=== PATIENT | female | born 1950 | race Caucasian/White ===

== ENCOUNTER 2016-05-01 11:49 | Observation (INO) | payer OTHER, MEDICARE ==
[~2016-05-01] VITALS: Ht 157.5 cm; Wt 99.8 kg
[~2016-05-01 11:49] MED LIST: ADIPEX-P37.5 MG PO; ATIVAN1 MG PO; CELEXA40 MG PO; COLACE100 MG PO; CYMBALTA30 MG PO; HYDROCODONE-APA1 TAB PO; LACTINEX C1 TAB.CHEW PO; NORCO 10/325 TA1 TA1 PO; NORCO 5/325 TAB1 TA1 PO; NORVASC5 MG PO; PERCOCET 10/3251 TA1; PERCOCET 10/3251 TA1 PO; PHENERGAN25 M1 PO; PRILOSEC20 MG PO; PRINIVIL20 MG PO; PROAIR HFA8.5 GM INH; RESTORIL15 MG PO; ZANAFLEX4 MG PO; ZOFRAN ODT4 MG/UDTAB PO
[2016-05-01 14:03] LABS: BASOPHILS 0.4 % (0.0-2.0); EOSINOPHILS 1.8 % (0-7); HEMATOCRIT 34.9 % (36.0-48.0); HEMOGLOBIN 10.4 g/dL (12-16); IMMATURE GRANULOCYTES 0.4 % (0-5); LYMPHOCYTES 13.5 % (15-50); MCH 23.8 pg (26.0-34.0); MCHC 29.8 g/dL (31.0-37.0); MCV 79.9 fL (80.0-100.0); MEAN PLATELET VOLUME 9.7 fL (7.4-10.4); MONOCYTES 7.6 % (2-11); NEUTROPHILS 76.3 % (40-80); PLATELET COUNT 192 10x3/uL (130-400); RBC 4.37 10x6/uL (4.00-5.40); RDW 16.8 % (11.5-14.5); WBC 7.3 10x3/uL (4.8-10.8)
[2016-05-01 14:32] LABS: ALBUMIN 3.4 g/dL (3.4-5.0); ANION GAP 14.9 mmol/L (8-16); BILIRUBIN - TOTAL 0.25 mg/dL (0.2-1.3); CALCIUM 8.5 mg/dL (8.5-10.1); CARBON DIOXIDE 24.9 mmol/L (21.0-32.0); CREATININE - SERUM 0.9 mg/dL (0.6-1.3); POTASSIUM - SERUM 3.8 mmol/L (3.5-5.1); PROTEIN - SERUM 6.1 g/dL (6.4-8.2)
[2016-05-01] MEDS ORDERED: FUROSEMIDE20 MG PO (18:11)
--- NOTE | 2016-05-01 18:11 | NUR ---
RECEIVED TO ROOM 2229. AWAKE AND ALERT. ORIENTED X3. C/O PAIN TO LEFT RIBS AT THIS TIME. SPLINT IN PLACE TO RIGHT HAND. ASSISTED WITH BED LUGO PER STAFF. VOIDED 300cc CLEAR YELLOW URINE WITHOUT DIFFICULTY. SUPPER TRAY ORDERED.
[2016-05-01 18:40] VITALS: BP 104/73
[2016-05-01 20:02] LABS: CKMB 2.5 U/L (0.0-3.6); CREATINE KINASE 169 UL (21-215)
[2016-05-01 20:04] LABS: TROPONIN-I < 0.017 ng/mL (0.000-0.060)
[2016-05-01 20:05] LABS: IRON 27 ug/dl (35-150)
[2016-05-01 20:06] LABS: % SATURATION 6 % (15-55); TOTAL IRON BIND CAPACITY 435 ug/dl (260-445); UNSAT IRON BIND CAPACITY 408 ug/dl (150-375)
--- NOTE | 2016-05-01 20:41 | NUR ---
MEDS GIVEN PER MAR ALONG WITH PRN MORPHINE FOR C/O RIB PAIN 12/19, NAHOMI WELL, IV FLUIDS STARTED PER ORDERS, DENIES FURTHER NEEDS, CL IN REACH
--- NOTE | 2016-05-01 22:43 | NUR ---
IV TO R AC CONSTANTLY OCCLUDING, DC'D WITH CATH INTACT, RESITED WITH 20G X 1 ATTEMPT IN L FOREARM, NAHOMI WELL, CL IN REACH
[2016-05-01 23:09] VITALS: BP 106/76; BMI 40.3
--- NOTE | 2016-05-02 00:49 | NUR ---
PRN MORPHINE GIVEN FOR C/O PAIN 12/19, NAHOMI WELL, CL IN REACH
[2016-05-02 01:00] VITALS: BP 122/82
[2016-05-02 02:24] LABS: CKMB 1.9 U/L (0.0-3.6)
[2016-05-02 02:36] LABS: CREATINE KINASE 266 UL (21-215); TROPONIN-I < 0.017 ng/mL (0.000-0.060)
[2016-05-02 05:00] VITALS: BP 140/95
--- NOTE | 2016-05-02 05:20 | NUR ---
MEDS GIVEN PER MAR ALONG WITH PRN MORPHINE FOR C/O PAIN 10/19, NAHOMI WELL, CL IN REACH
[2016-05-02 05:31] LABS: BASOPHILS 0.5 % (0.0-2.0); EOSINOPHILS 4.9 % (0-7); HEMATOCRIT 30.1 % (36.0-48.0); HEMOGLOBIN 8.8 g/dL (12-16); IMMATURE GRANULOCYTES 0.5 % (0-5); LYMPHOCYTES 30.2 % (15-50); MCH 23.5 pg (26.0-34.0); MCHC 29.2 g/dL (31.0-37.0); MCV 80.3 fL (80.0-100.0); MEAN PLATELET VOLUME 9.5 fL (7.4-10.4); MONOCYTES 13.4 % (2-11); NEUTROPHILS 50.5 % (40-80); PLATELET COUNT 162 10x3/uL (130-400); RBC 3.75 10x6/uL (4.00-5.40); RDW 16.9 % (11.5-14.5)
[2016-05-02 05:59] LABS: WBC 3.9 10x3/uL (4.8-10.8)
[2016-05-02 06:06] LABS: ALBUMIN 2.7 g/dL (3.4-5.0); ANION GAP 11.3 mmol/L (8-16); BILIRUBIN - TOTAL 0.43 mg/dL (0.2-1.3); CALCIUM 7.8 mg/dL (8.5-10.1); CARBON DIOXIDE 28.4 mmol/L (21.0-32.0); CREATININE - SERUM 0.9 mg/dL (0.6-1.3); POTASSIUM - SERUM 3.7 mmol/L (3.5-5.1); PROTEIN - SERUM 5.6 g/dL (6.4-8.2)
--- NOTE | 2016-05-02 07:00 | NUR ---
REPORT RECIEVED ASSUMED CARE. PATIENT IN BED WITH IV INTACT. CALL LIGHT WITHIN REACH.
[2016-05-02 08:11] LABS: CKMB 1.2 U/L (0.0-3.6); CREATINE KINASE 244 UL (21-215); TROPONIN-I < 0.017 ng/mL (0.000-0.060)
[2016-05-02 08:33] VITALS: BP 100/52
[2016-05-02] MEDS ORDERED: CHERATUSSIN AC473 ML PO (09:16)
[2016-05-02] MEDS ORDERED: BENZONATATE200 MG PO (09:18)
[2016-05-02] MEDS ORDERED: SILVADENE20 GM TP (09:19)
[2016-05-02] MEDS ORDERED: LIDODERM 5 %1 PATCH TRANSDERM (09:20)
[2016-05-02] MEDS ORDERED: HYDROXYZINE HCL10 MG PO (09:21)
[2016-05-02] MEDS ORDERED: OMEPRAZOLE20 M1 PO (09:24)
[2016-05-02] MEDS ORDERED: EPIPEN JR0.15 MG/01 IM (09:24)
[2016-05-02] MEDS ORDERED: CARAFATE1 G PO (09:26)
[2016-05-02] MEDS ORDERED: ADIPEX-P37.5 M1 PO (09:27)
[2016-05-02 12:08] VITALS: BP 112/64
[2016-05-02 14:44] VITALS: Ht 157.5 cm; Wt 99.8 kg
[2016-05-02 15:17] VITALS: BP 109/63
--- NOTE | 2016-05-02 18:50 | NUR ---
PATIENT IN BED WITH IV INTACT. NO COMPLAINTS. CALL LIGHT WITHIN REACH.
--- NOTE | 2016-05-02 19:50 | NUR ---
ASSESSMENT COMPLETED, NO ACUTE DISTRESS NOTED, FAMILY IN ROOM, DENIES NEEDS, FALL PRECAUTIONS IN PLACE, CL IN REACH, WILL MONITOR
--- NOTE | 2016-05-02 20:08 | NUR ---
PRN MORPHINE GIVEN PER MAR FOR C/O RIB PAIN 10/19, NAHOMI WELL, CL IN REACH
--- NOTE | 2016-05-02 20:10 | NUR ---
ZOFRAN GIVEN FOR C/O NAUSEA WITH NO EMESIS, NAHOMI WELL, CL IN REACH
[2016-05-02 21:00] VITALS: BP 128/78
--- NOTE | 2016-05-02 21:31 | NUR ---
MEDS GIVEN PER MAR, NAHOMI WELL, DENIES NEEDS AT THIS TIME, FALL PRECAUTIOINS IN PLACE, CL IN REACH
[2016-05-03 01:00] VITALS: BP 130/74
--- NOTE | 2016-05-03 02:19 | NUR ---
MORPHINE GIVEN PER MAR FOR C/O PAIN 11/19, NAHOMI WELL, DENIES OTHER NEEDS, CL IN REACH
[2016-05-03 05:00] VITALS: BP 133/68
--- NOTE | 2016-05-03 06:19 | NUR ---
PRN MORPHINE GIVEN FOR C/O PAIN 10/19 ALONG WITH SCHEDULED PROTONIX, NAHOMI WELL, FALL PRECAUTIONS IN PLACE, CL IN REACH
[2016-05-03 06:24] LABS: ALBUMIN 2.7 g/dL (3.4-5.0); ALKALINE PHOSPHATASE 121 U/L (46-116); ALT (SGPT) 44 U/L (10-68); BILIRUBIN - TOTAL 0.39 mg/dL (0.2-1.3); CALC OSMOLALITY 284 mosm/kg (275-300); CALCIUM 7.8 mg/dL (8.5-10.1); CARBON DIOXIDE 24.7 mmol/L (21.0-32.0); CHLORIDE - SERUM 109 mmol/L (98-107); CREATININE - SERUM 0.7 mg/dL (0.6-1.3); GLUCOSE 98 mg/dL (74-106); POTASSIUM - SERUM 4.2 mmol/L (3.5-5.1); PROTEIN - SERUM 5.5 g/dL (6.4-8.2); SODIUM 144 mmol/L (136-145); UREA NITROGEN 8 mg/dL (7-18); eGFR NON AFRICAN AMERICAN 90 mL/min (90-120)
[2016-05-03 06:29] LABS: BASOPHILS 0.7 % (0.0-2.0); HEMATOCRIT 29.5 % (36.0-48.0); HEMOGLOBIN 8.8 g/dL (12-16); IMMATURE GRANULOCYTES 0.9 % (0-5); LYMPHOCYTES 25.3 % (15-50); MCH 23.9 pg (26.0-34.0); MCHC 29.8 g/dL (31.0-37.0); MCV 80.2 fL (80.0-100.0); MEAN PLATELET VOLUME 9.9 fL (7.4-10.4); MONOCYTES 11.6 % (2-11); NEUTROPHILS 56.5 % (40-80); PLATELET COUNT 149 10x3/uL (130-400); RBC 3.68 10x6/uL (4.00-5.40); RDW 16.9 % (11.5-14.5); WBC 4.6 10x3/uL (4.8-10.8)
--- NOTE | 2016-05-03 07:00 | NUR ---
REPORT RECIEVED ASSUMED CARE. PATIENT IN BED WITH IV INTACT. NO COMPLAINTS AT THIS TIME. CALL MELISSAW EKTA MUNOZ.
[2016-05-03 08:31] VITALS: BP 95/60
[2016-05-03 10:20] LABS: FOLATE (FOLIC ACID) - SERUM 5.9 ng/mL (>3.0)
[2016-05-03 11:46] VITALS: BP 101/64
[2016-05-03] MEDS ORDERED: FERROUS SULFAT325 MG PO (11:54)
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
--- NOTE | 2016-05-03 13:27 | NUR ---
05/03/2016 13:27 DCP: Discharge Planning HH referral faxed and called to Estefany with [facility]. They will see patient tomorrow.
[2016-05-03 16:17] VITALS: BP 121/75
--- NOTE | 2016-05-03 18:55 | NUR ---
STATED DR. PEDRO SAID SHE COULD STAY BECAUSE SHE DIDNT HAVE ANYONE TO STAY WITH HER TONIGHT. NOTIFIED BRINA AT THIS TIME. BRINA STATED OK FOR PATIENT TO STAY. PATIENT IV INTACT. NO COMPLAINTS AT THIS TIME. CALL LIGHT WITHIN REACH.
--- NOTE | 2016-05-03 19:15 | NUR ---
BEDSIDE REPORT RECEIVED AND CARE OF PT ASSUMED. PT LYING IN SEMI MAYBERRY'S POSITION. IV IN LEFT FA PATENT WITH NS INFUSING AT 75 ML / HR. DRESSING ON RIGHT ARM / HAND CLEAN / DRY AND INTACT. WILL MONITOR CLOSLEY FOR NEEDS.
[2016-05-03 21:00] VITALS: BP 123/80
--- NOTE | 2016-05-03 22:05 | NUR ---
HS MEDICATIONS GIVEN. WILL CONTINUE TO MONITOR FOR NEEDS.
--- NOTE | 2016-05-03 22:15 | NUR ---
GAVE TURKEY SANDWICH FOR SNACK PER PT REQUEST. WILL CONTINUE TO MONITOR FOR NEEDS.
--- NOTE | 2016-05-04 01:00 | NUR ---
ASSISTED TO BSC TO VOID. POSITIONED BACK IN BED FOR COMFORT.
[2016-05-04 02:30] VITALS: BP 130/70
[2016-05-04 05:00] VITALS: BP 108/77
[2016-05-04 05:54] LABS: BASOPHILS 0.6 % (0.0-2.0); EOSINOPHILS 5.7 % (0-7); HEMATOCRIT 27.4 % (36.0-48.0); HEMOGLOBIN 8.1 g/dL (12-16); IMMATURE GRANULOCYTES 0.3 % (0-5); LYMPHOCYTES 29.5 % (15-50); MCH 23.5 pg (26.0-34.0); MCHC 29.6 g/dL (31.0-37.0); MCV 79.4 fL (80.0-100.0); MEAN PLATELET VOLUME 10.4 fL (7.4-10.4); MONOCYTES 11.9 % (2-11); PLATELET COUNT 138 10x3/uL (130-400); RBC 3.45 10x6/uL (4.00-5.40); RDW 16.8 % (11.5-14.5); WBC 3.5 10x3/uL (4.8-10.8)
[2016-05-04 06:15] LABS: ALBUMIN 2.5 g/dL (3.4-5.0); ALKALINE PHOSPHATASE 182 U/L (46-116); CALC OSMOLALITY 278 mosm/kg (275-300); CALCIUM 7.8 mg/dL (8.5-10.1); CARBON DIOXIDE 26.1 mmol/L (21.0-32.0); CHLORIDE - SERUM 108 mmol/L (98-107); CREATININE - SERUM 0.7 mg/dL (0.6-1.3); GLUCOSE 93 mg/dL (74-106); POTASSIUM - SERUM 4.1 mmol/L (3.5-5.1); PROTEIN - SERUM 5.1 g/dL (6.4-8.2); SODIUM 141 mmol/L (136-145); UREA NITROGEN 6 mg/dL (7-18); eGFR NON AFRICAN AMERICAN 90 mL/min (90-120)
[2016-05-04 06:19] LABS: ALT (SGPT) 58 U/L (10-68)
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
[2016-05-04 08:34] VITALS: BP 116/67
--- NOTE | 2016-05-04 10:15 | NUR ---
PATIENT DISCHARGED HOME WITH FAMILY VIA PRIVATE VEHICLE TO BE FOLLOWED BY HOME HEALTH. IV DC'D WITH CATHETER INTACT. PERSONAL BELONGINGS RETURNED TO PATIENT. WRITTEN AND VERBAL INSTRUCTIONS GIVEN TO PATIENT. TAKEN TO PRIVATE VEHCILE VIA WHEELCHAIR.
== END 2016-05-04 10:23 | disposition home health service (06) ==
LOC: D.ER 11:49 → D.MS 17:33 → OBSVTIME 17:33 → D.MS 05-04 10:23
PROVIDERS: Physician Assistant; ADMIT Family Medicine
DX: S22.42XA Multiple fractures of ribs, left side, initial encounter for closed fracture (principal); V89.2XXA Person injured in unspecified motor-vehicle accident, traffic, initial encounter; S30.1XXA Contusion of abdominal wall, initial encounter; D64.9 Anemia, unspecified; S62.306A Unspecified fracture of fifth metacarpal bone, right hand, initial encounter for closed fracture; M19.90 Unspecified osteoarthritis, unspecified site; M54.9 Dorsalgia, unspecified; I10 Essential (primary) hypertension; F41.9 Anxiety disorder, unspecified

== ENCOUNTER → 2016-12-05 16:58 | Outpatient (CLI) | payer MEDICARE ==
[2016-05-02 14:44] VITALS: BMI 40.2
[~2016-12-05 16:58] MED LIST changes: +ADIPEX-P37.5 M1 PO; +BENZONATATE200 MG PO; +CARAFATE1 G PO; +CHERATUSSIN AC473 ML PO; +EPIPEN JR0.15 MG/01 IM; +FERROUS SULFAT325 MG PO; +FUROSEMIDE20 MG PO; +HYDROXYZINE HCL10 MG PO; +LIDODERM 5 %1 PATCH TRANSDERM; +OMEPRAZOLE20 M1 PO; +SILVADENE20 GM TP
== END | disposition home or self-care (01) ==
LOC: D.MAMMO 13:30
DX: Z12.31 Encounter for screening mammogram for malignant neoplasm of breast (principal)

== ENCOUNTER 2017-01-19 10:00 | Outpatient (CLI) | payer MEDICARE ==
[2016-05-02 14:44] VITALS: BMI 40.2
== END 2017-01-19 23:59 | disposition home or self-care (01) ==
LOC: D.MAMMO 10:00
DX: R92.2 Inconclusive mammogram (principal)

== ENCOUNTER → 2017-10-30 14:58 | Outpatient (CLI) | payer MEDICARE ==
[2016-05-02 14:44] VITALS: BMI 40.2
== END | disposition home or self-care (01) ==
LOC: D.CT 14:58
DX: R10.9 Unspecified abdominal pain (principal)

== ENCOUNTER → 2018-04-26 15:44 | Outpatient (CLI) | payer MEDICARE ==
[2016-05-02 14:44] VITALS: BMI 40.2
== END | disposition home or self-care (01) ==
LOC: D.CT 15:44
DX: R19.00 Intra-abdominal and pelvic swelling, mass and lump, unspecified site (principal)

== ENCOUNTER → 2018-05-10 18:23 | Outpatient (CLI) | payer MEDICARE ==
[2016-05-02 14:44] VITALS: BMI 40.2
== END | disposition home or self-care (01) ==
LOC: D.LABREF 18:23
PROVIDERS: ATTEND Surgery
DX: R19.03 Right lower quadrant abdominal swelling, mass and lump (principal)

== ENCOUNTER 2018-06-27 09:48 | Day surgery (SDC) | payer MEDICARE ==
[2016-05-02 14:44] VITALS: BMI 40.2
[~2018-06-27 09:48] MED LIST changes: +ULTRAM50 MG PO
[2018-06-27 10:06] LABS: HEMATOCRIT 35.6 % (36.0-48.0); HEMOGLOBIN 11.4 g/dL (12-16); MCV 78.1 fL (80.0-100.0); MEAN PLATELET VOLUME 8.8 fL (7.4-10.4); RBC 4.56 10x6/uL (4.00-5.40); RDW 15.5 % (11.5-14.5); WBC 4.9 10x3/uL (4.8-10.8)
--- NOTE | 2018-06-27 12:20 | NUR ---
PATIENT STATES FEELING BETTER AFTER ZOFRAN INJECTION, WANTS TO GO FORWARD WITH SURGERY. PATIENT STATES "I FEEL LIKE THIS NAUSEA IS JUST FROM SINUSES." THIS NURSE BEGINS ASSESSING PATIENT AND TAKING A MEDICAL HISTORY AND PATIENT VOMITS IN EMESIS BASIN FOR SECOND TIME SINCE ARRIVING IN OUTPATIENT DEPARTMENT. ORANGE/YELLOW FLUID IN EMESIS BASIN. PATIENT STATES "THAT'S ORANGE JUICE." THIS NURSE ASKS WHEN PATIENT HAD ORANGE JUICE LAST, PATIENT STATES "YESTERDAY." SPOUSE STATES "NO, THAT'S BILE." CALL PLACED TO DR BRISENO REGARDING PATIENT'S VOMITING, DR BRISENO ORDERS SURGERY TO BE RESCHEDULED FOR A DIFFERENT DAY.
== END 2018-06-27 12:20 | disposition home or self-care (01) ==
LOC: D.OPS 09:48 → D.PAN 12:30 → D.OPS 13:00
PROVIDERS: Anesthesiology; ATTEND Orthopaedic Surgery
DX: M75.42 Impingement syndrome of left shoulder (principal)

== ENCOUNTER 2018-06-27 23:02 | Emergency (ER) | payer MEDICARE ==
[~2018-06-27] VITALS: Ht 157.5 cm; Wt 95.9 kg
[2018-06-27 23:04] VITALS: Ht 157.5 cm; Wt 95.9 kg
[2018-06-27 23:45] LABS: HEMATOCRIT 35.5 % (36.0-48.0); HEMOGLOBIN 11.8 g/dL (12-16); LYMPHOCYTES 22.1 % (15-50); MCH 25.9 pg (26.0-34.0); MCHC 33.2 g/dL (31.0-37.0); MCV 77.9 fL (80.0-100.0); MEAN PLATELET VOLUME 8.8 fL (7.4-10.4); NEUTROPHILS 70.4 % (40-80); PLATELET COUNT 182 10x3/uL (130-400); RBC 4.56 10x6/uL (4.00-5.40); RDW 14.7 % (11.5-14.5); WBC 4.2 10x3/uL (4.8-10.8)
[2018-06-28 00:15] LABS: ALBUMIN 3.4 g/dL (3.4-5.0); ALKALINE PHOSPHATASE 76 U/L (46-116); ALT (SGPT) 15 U/L (10-68); BILIRUBIN - TOTAL 0.53 mg/dL (0.2-1.3); CALC OSMOLALITY 281 mosm/kg (275-300); CALCIUM 8.4 mg/dL (8.5-10.1); CARBON DIOXIDE 30.2 mmol/L (21.0-32.0); CHLORIDE - SERUM 106 mmol/L (98-107); CREATININE - SERUM 0.8 mg/dL (0.6-1.3); GLUCOSE 109 mg/dL (74-106); POTASSIUM - SERUM 3.4 mmol/L (3.5-5.1); PROTEIN - SERUM 6.9 g/dL (6.4-8.2); SODIUM 142 mmol/L (136-145); UREA NITROGEN 6 mg/dL (7-18); eGFR NON AFRICAN AMERICAN 76 mL/min (90-120)
[2018-06-28 00:40] LABS: ERYTHROCYTE SEDIMENTATION RATE 12 mm/hr (0-30)
[2018-06-28 02:17] VITALS: BP 142/85
== END 2018-06-28 02:17 | disposition home or self-care (01) ==
LOC: D.ER 23:02
PROVIDERS: Emergency Medicine
DX: G43.909 Migraine, unspecified, not intractable, without status migrainosus (principal); D64.9 Anemia, unspecified; E87.6 Hypokalemia

== ENCOUNTER 2018-07-18 06:45 | Day surgery (SDC) | payer MEDICARE ==
[2018-07-17 10:21] LABS: HEMATOCRIT 38.9 % (36.0-48.0); HEMOGLOBIN 12.7 g/dL (12-16); MCH 25.3 pg (26.0-34.0); MCHC 32.6 g/dL (31.0-37.0); MCV 77.5 fL (80.0-100.0); MEAN PLATELET VOLUME 8.9 fL (7.4-10.4); RBC 5.02 10x6/uL (4.00-5.40); RDW 15.7 % (11.5-14.5); WBC 6.8 10x3/uL (4.8-10.8)
[~2018-07-18] VITALS: Ht 162.6 cm; Wt 104.3 kg
[2018-07-18 08:03] VITALS: BP 121/95; Ht 162.6 cm; Wt 104.3 kg
[2018-07-18] MEDS ORDERED: HYDROCODON-ACE1 EA10 PO (10:40)
--- NOTE | 2018-07-29 07:51 | OP ---
PATIENT NAME: IKER JOYA MEDICAL RECORD: [id number] :52 LOCATION:[facility] ADMISSION DATE: SURGEON: JORDAN BRISENO MD DATE OF OPERATION: 07/18/2018 PREOPERATIVE DIAGNOSIS: Rotator cuff tear of the left shoulder with impingement syndrome. POSTOPERATIVE DIAGNOSIS: Rotator cuff tear of the left shoulder with impingement syndrome. PROCEDURES: 1. Arthroscopic rotator cuff repair of the left shoulder. 2. Arthroscopic distal clavicle excision done through separate incision -- 1 cm, left shoulder. 3. Arthroscopic subacromial decompression, left shoulder. SURGEON: Jordan Briseno MD ANESTHESIA: General. INTRAOPERATIVE COMPLICATIONS: None. SUMMARY OF PATHOLOGIC FINDINGS: The patient was indeed found to have a full thickness rotator cuff tear as well as impingement findings associated with excoriation of the coracoacromial ligament as well as acromioclavicular arthritis. OPERATIVE SUMMARY IN DETAIL: After obtaining the appropriate preoperative orthopedic surgery consent as well as anesthetic consultation, evaluation and clearance, the patient was brought to the operating room and placed on the operating table in supine position. After general laryngeal mask airway was administered, the patient was placed in a right lateral decubitus position. All pressure points well padded to include down leg peroneal pad as well as axillary roll. The patient was held firmly to the operating table using the vacuum pack suction system. The patient's left upper extremity and shoulder were then prepped and draped in routine sterile fashion. The arm was held in the Arthrex traction boom at 30 degrees of forward flexion, 30 degrees of abduction, 10 pounds of traction laterally. Arthroscopy was established in the glenohumeral joint from the posterior portal. Anterior portal was established in the anterior safe interval. Diagnostic arthroscopy showed the patient had full thickness rotator cuff tearing, therefore a transrotator cuff portal was created for debridement of the undersurface of the rotator cuff as well as preparation of the supraspinatus tendon for reapproximation. Having completed this, attention was then turned to subacromial space, Nelson tissue ablation system was utilized to denude the undersurface of the acromion of all soft tissue elements and release the coracoacromial ligament. A 5-0 barrel bur was then used for acromioplasty at the level of acromioclavicular joint and through a separate anterior portal under arthroscopic visualization, 1 cm distal clavicle was excised for the distal clavicle excision. Lastly, attention was then returned to the rotator cuff. Single #2 FiberTape was placed in inverted mattress style fashion and anchored laterally with a 5.5 SwiveLock from Arthrex. Having completed this, arthroscopy portals were closed in routine interrupted fashion using 4-0 Prolene. Sterile dressing was applied. The patient was awakened and taken to recovery room in stable condition. All final needle and OPERATIVE REPORT [id number] IKER JOYA sponge counts were correct. TRANSINT:[id number] Voice Confirmation ID: [id number] DOCUMENT ID: [id number] FINN ALVAREZ, JORDAN KHAN at 0751 CC: [id number] DICTATION DATE: 07/26/18 1208 CHEMICAL LABORATORY TECHNICIAN: 07/26/18 1535 [facility] 07/18/18 [id number] [place] [address]
== END 2018-07-18 12:29 | disposition home or self-care (01) ==
LOC: D.OPS 06:45 → D.PAN 09:00 → D.OPS 12:29 → D.PAN 13:15 → D.OPS 14:15 → D.PAN 14:15
PROVIDERS: Anesthesiology; ATTEND Orthopaedic Surgery
DX: M75.102 Unspecified rotator cuff tear or rupture of left shoulder, not specified as traumatic (principal); M75.42 Impingement syndrome of left shoulder

== ENCOUNTER 2018-09-30 08:29 | Day surgery (SDC) | payer MEDICARE ==
[~2018-09-30] VITALS: Ht 162.6 cm; Wt 104.3 kg
[~2018-09-30 08:29] MED LIST changes: +CYCLOBENZAPRINE10 MG PO; +HYDROCODON-ACE1 EA10 PO
[2018-09-30 09:02] LABS: BASOPHILS 0.4 % (0-2); EOSINOPHILS 1.2 % (0-7); HEMATOCRIT 37.1 % (36.0-48.0); HEMOGLOBIN 11.6 g/dL (12-16); IMMATURE GRANULOCYTES 0.4 % (0-5); LYMPHOCYTES 24.8 % (15-50); MCH 24.1 pg (26.0-34.0); MCHC 31.3 g/dL (31.0-37.0); MEAN PLATELET VOLUME 8.7 fL (7.4-10.4); MONOCYTES 8.4 % (2-11); NEUTROPHILS 64.8 % (40-80); PLATELET COUNT 197 10x3/uL (130-400); RBC 4.82 10x6/uL (4.00-5.40); RDW 15.4 % (11.5-14.5); WBC 9.1 10x3/uL (4.8-10.8)
[2018-09-30 09:06] LABS: ANION GAP 8.9 mmol/L (8-16); CALCIUM 8.8 mg/dL (8.5-10.1); CARBON DIOXIDE 31.6 mmol/L (21.0-32.0); CREATININE - SERUM 0.9 mg/dL (0.6-1.3); POTASSIUM - SERUM 4.5 mmol/L (3.5-5.1)
[2018-09-30 10:38] VITALS: BP 129/92; Ht 162.6 cm; Wt 104.3 kg
--- NOTE | 2018-09-30 16:22 | NUR ---
1350 IV REMOVED AND PRESSURE HELD.
--- NOTE | 2018-10-03 12:35 | OP ---
PATIENT NAME: IKER JOYA MEDICAL RECORD: [id number] :52 LOCATION:[facility] ADMISSION DATE: SURGEON: JORDAN BRISENO MD DATE OF OPERATION: 09/30/2018 PREOPERATIVE DIAGNOSIS: Bilateral osteoarthritis of the hips, mild to moderate. POSTOPERATIVE DIAGNOSIS: Bilateral osteoarthritis of the hips, mild to moderate. PROCEDURE: Bilateral hip injections under anesthesia. SURGEON: Jordan Briseno MD ANESTHESIA: TIVA. INTRAOPERATIVE COMPLICATIONS: None. SUMMARY OF PATHOLOGIC FINDINGS: Consistent with the preoperative radiographs. Fluoroscopy did show the patient to have [id number] OA of bilateral hips. OPERATIVE SUMMARY IN DETAIL: After obtaining the appropriate preoperative orthopedic surgery consent as well as anesthetic consultation, evaluation and clearance, the patient was brought to the operating room and placed on the operating table in supine position. After TIVA anesthesia was administered, bilateral hips were prepped and draped in routine sterile fashion. The left hip was approached first. An 18-gauge spinal needle was then placed into the capsule. Small amount of Isovue was utilized to be sure that this was in the appropriate position and then a combination of a 5 cc of 0.25% Marcaine with epinephrine and 40 mg of Depo-Medrol were placed into the hip socket under fluoroscopic guidance. This needle tip was withdrawn. Bandage was applied. Attention was then turned to the right hip. In the same manner, a separate 18-gauge spinal needle was then placed into the hip capsule. Small amount of Isovue was then utilized to be sure the tip was in the appropriate position. At this point, again 5 cc of 0.25% Marcaine with epinephrine and 40 mg of Depo-Medrol were injected into the right hip. This likewise was withdrawn. Bandage was applied. The patient was then awakened and taken back to outpatient in stable condition. All final needle and sponge counts were correct. TRANSINT:[id number] Voice Confirmation ID: [id number] DOCUMENT ID: [id number] FINN ALVAREZ, JORDAN KHAN at 1235 CC: [id number] DICTATION DATE: 10/03/18 1053 SHELTER ADVOCATE: 10/03/18 1120 [facility]P [facility] 09/30/18 [place] [address]
== END 2018-09-30 13:45 | disposition home or self-care (01) ==
LOC: D.OPS 08:29 → D.PAN 14:45
PROVIDERS: Anesthesiology; ATTEND Orthopaedic Surgery
DX: M16.0 Bilateral primary osteoarthritis of hip (principal)

== ENCOUNTER 2018-10-24 08:47 | Day surgery (SDC) | payer MEDICARE ==
[2018-10-23 15:35] LABS: HEMATOCRIT 36.3 % (36.0-48.0); HEMOGLOBIN 11.4 g/dL (12-16); MCH 24.1 pg (26.0-34.0); MCHC 31.4 g/dL (31.0-37.0); MCV 76.7 fL (80.0-100.0); MEAN PLATELET VOLUME 8.9 fL (7.4-10.4); RBC 4.73 10x6/uL (4.00-5.40); RDW 15.9 % (11.5-14.5); WBC 6.8 10x3/uL (4.8-10.8)
[~2018-10-24] VITALS: Ht 162.6 cm; Wt 104.3 kg
[2018-10-24 07:50] VITALS: BP 127/72; Ht 162.6 cm; Wt 104.3 kg
[2018-10-24] MEDS ORDERED: HYDROCODON-ACE1 EA10 PO (11:28)
--- NOTE | 2018-12-16 09:56 | OP ---
PATIENT NAME: IKER JOYA MEDICAL RECORD: [id number] :52 LOCATION:[facility] ADMISSION DATE: SURGEON: JORDAN BRISENO MD DATE OF OPERATION: 10/24/2018 PREOPERATIVE DIAGNOSIS: Residual biceps tendinitis of the left shoulder status post arthroscopy. POSTOPERATIVE DIAGNOSIS: Residual biceps tendinitis of the left shoulder status post arthroscopy. PROCEDURE: Arthroscopic biceps tenotomy. SURGEON: Jordan Briseno MD ANESTHESIA: General. INTRAOPERATIVE COMPLICATIONS: None. SUMMARY OF PATHOLOGIC FINDINGS: Unfortunately, the patient's biceps tendinitis did not improve after decompression and rotator cuff repair. This resulted in several trials of cortisone therapy; however, they failed and at the time of surgery, she was found to have severe biceps tendinitis consistent with the preoperative diagnosis. OPERATIVE SUMMARY IN DETAIL: After obtaining the appropriate preoperative orthopedic surgery consent as well as anesthetic consultation, evaluation and clearance, the patient was brought to the operating room and placed on the operating table in supine position. After adequate general laryngeal mask airway was administered, the patient was placed in left lateral decubitus position. All pressure points were well padded to include down leg peroneal pad as well as axillary roll. The patient was held firmly to the operating table using the vacuum pack suction system. The left upper extremity was then prepped and draped in a routine sterile fashion, held in the Arthrex traction boom at 30 degrees of forward flexion, 30 degrees of abduction, and 10 pounds of traction laterally. Arthroscopy was established in the glenohumeral joint from the posterior portal. Anterior portal was established in the anterior safe interval. Diagnostic arthroscopy did show the patient to have severe and significant biceps tendinitis. No further rotator cuff tearing was noted. [place] tissue ablation system was utilized to detach the biceps tendon at the bicipital labral junction and immediately retracted out of the joint. The patient did have substantial amount of synovitis in and around the area of the biceps tendon. This was gently debrided using the arthroscopic resector. Next, attention was turned to the subacromial space. While in the subacromial space, the patient did have one piece of FiberWire that was protruding. No rotator cuff tearing was noted. The FiberWire was taken down along with a lot of subacromial synovitis. Having completed this, arthroscopy portals were closed in routine interrupted fashion using 4-0 Prolene. Sterile dressings were applied. The patient was awakened and taken to the recovery room in stable condition. All final needle and sponge counts were correct. TRANSINT:[id number] Voice Confirmation ID: [id number] DOCUMENT ID: [id number] 12/13/2018 Edited for left, srikanth. OPERATIVE REPORT [id number] IKER JOYA MD, JORDAN KHAN at 0956 CC: [id number] DICTATION DATE: 10/25/18 1042 CABLE INSTALLER REPAIRER: 10/25/18 1134 [facility] 10/24/18 [facility] [address] [place] [address]
== END 2018-10-24 13:50 | disposition home or self-care (01) ==
LOC: D.OPS 08:47 → D.PAN 17:15 → D.OPS 17:15
PROVIDERS: Anesthesiology; ATTEND Orthopaedic Surgery
DX: M75.21 Bicipital tendinitis, right shoulder (principal); Z01.812 Encounter for preprocedural laboratory examination

== ENCOUNTER → 2018-12-06 08:02 | Outpatient (CLI) | payer MEDICARE ==
[2018-10-24 07:50] VITALS: BMI 39.5
== END | disposition home or self-care (01) ==
LOC: D.NM 08:02
PROVIDERS: ATTEND Orthopaedic Surgery
DX: Z96.652 Presence of left artificial knee joint (principal)

== ENCOUNTER → 2018-12-24 17:51 | Outpatient (CLI) | payer MEDICARE ==
[2018-10-24 07:50] VITALS: BMI 39.5
[~2018-12-24 17:51] MED LIST changes: +ELIQUIS2.5 MG PO; +PERCOCET 10-321 EAC1 PO; +TRAZODONE HCL150 MG PO
== END | disposition home or self-care (01) ==
LOC: D.LABREF 17:51
PROVIDERS: ATTEND Orthopaedic Surgery
DX: M25.562 Pain in left knee (principal)

== ENCOUNTER 2018-12-27 16:42 | Inpatient (IN) | payer MEDICARE, OTHER ==
[~2018-12-27] VITALS: Ht 162.6 cm; Wt 99.5 kg
[~2018-12-27 16:42] MED LIST changes: -ELIQUIS2.5 MG PO; -PERCOCET 10-321 EAC1 PO; -TRAZODONE HCL150 MG PO
[2019-01-07] MEDS ORDERED: TRAZODONE HCL150 MG PO (16:22)
[2019-01-07] MEDS ORDERED: ZANAFLEX4 MG PO (16:22)
[2019-01-07] MEDS ORDERED: ULTRAM50 MG PO (16:23)
[2019-01-08 11:24] LABS: BASOPHILS 0.8 % (0-2); EOSINOPHILS 3.5 % (0-7); HEMATOCRIT 39.3 % (36.0-48.0); HEMOGLOBIN 11.9 g/dL (12-16); IMMATURE GRANULOCYTES 0.2 % (0-5); LYMPHOCYTES 23.8 % (15-50); MCH 23.2 pg (26.0-34.0); MCHC 30.3 g/dL (31.0-37.0); MCV 76.8 fL (80.0-100.0); MEAN PLATELET VOLUME 9.6 fL (7.4-10.4); MONOCYTES 9.8 % (2-11); NEUTROPHILS 61.9 % (40-80); PLATELET COUNT 191 10x3/uL (130-400); RBC 5.12 10x6/uL (4.00-5.40); RDW 16.1 % (11.5-14.5); WBC 5.1 10x3/uL (4.8-10.8)
[2019-01-08 11:28] LABS: CALC OSMOLALITY 284 mosm/kg (275-300); CALCIUM 9.3 mg/dL (8.5-10.1); CARBON DIOXIDE 28.9 mmol/L (21.0-32.0); CHLORIDE - SERUM 105 mmol/L (98-107); CREATININE - SERUM 0.8 mg/dL (0.6-1.3); GLUCOSE 98 mg/dL (74-106); POTASSIUM - SERUM 3.8 mmol/L (3.5-5.1); SODIUM 144 mmol/L (136-145); UREA NITROGEN 8 mg/dL (7-18); eGFR NON AFRICAN AMERICAN 76 mL/min (90-120)
[2019-01-08 11:46] LABS: INR 1.05 (0.85-1.17); PROTIME 13.2 SECONDS (11.6-15.0)
[2019-01-08 11:47] LABS: APTT 33.5 SECONDS (22.8-39.4)
[2019-01-08 12:31] LABS: APPEARANCE HAZY (CLEAR); BILIRUBIN NEGATIVE (NEGATIVE); COLOR DK YELLOW (YELLOW); GLUCOSE NEGATIVE (NEGATIVE); KETONE MODERATE mg/dL (NEGATIVE); NITRITE NEGATIVE (NEGATIVE); PROTEIN NEGATIVE (NEGATIVE); SPECIFIC GRAVITY 1.025 (1.005-1.020); UROBILINOGEN NORMAL (NORMAL)
[2019-01-08 12:32] LABS: BACTERIA FEW /hpf (NEGATIVE); CALCIUM OXALATE CRYSTALS >50 /hpf (NONE SEEN); EPITHELIAL CELLS 0-5 /hpf (0-5); MUCUS <1+ /lpf (NONE SEEN); RED CELLS - URINE RARE /hpf (0-5); WHITE CELLS - URINE OCC /hpf (NEGATIVE)
[2019-01-13] VITALS (10 sets, daily range): BP systolic 92–122; BP diastolic 54–73; Ht 162.6 cm; Wt 99.5 kg
--- NOTE | 2019-01-13 13:23 | NUR ---
PLASMA BLADE SET TO 6/8 BOVIE PAD RIGHT THIGH [id number] EXP 03/27/20 PREPPED LEFT LEG FROM TOURNIQUET TO TOES CIRCUMFERENTIALLY WITH HIBICLENS/ALCOHOL AND DRIED WITH TOWEL. PREPPED WITH CHLORAPREP. STERILE GOWN AND GLOVES WORN DURING PREP. LAMINAR FLOW NOT IN USE TRAFFIC IN AND OUT OF ROOM MONITORED AND KEPT TO A MINIMUM.
--- NOTE | 2019-01-13 20:00 | NUR ---
ALERT ORIENTIATED SITTING UP IN BED, REPORTS MILD PAIN TO LEFT KNEE AREA WITH SLIGHT MOVEMENT TO TOES OF LEFT FOOT, TONY WRAP INTACT TO LEFT KNEE, REQUESTING PAIN PILL, PEROCET GIVEN, SEE SHIFT ASSESSMENT, CALL LIGHT IN REACH
[2019-01-14] VITALS (9 sets, daily range): BP systolic 82–154; BP diastolic 50–80
--- NOTE | 2019-01-14 02:05 | NUR ---
CALL TO DR JACOBS CONCERNING LOW BP, RECHECKED MANUAL AT 82/50 ORDERS RECIEVED FOR STAT H&H AND TO CALL IF LESS THAN 9 AND TO CONSULT HOSPITALIST BARGE PILOT
--- NOTE | 2019-01-14 02:25 | NUR ---
Carina GRIFFIN APN, DRIVER MATERIAL HANDLER FOR DR PRASAD PAGED AWAITING CALL BACK
[2019-01-14 02:59] LABS: HEMATOCRIT 29.7 % (36.0-48.0); HEMOGLOBIN 9.1 g/dL (12-16)
--- NOTE | 2019-01-14 03:00 | NUR ---
SPOKE WITH Carina GRIFFIN APN, INFORMED OF CONSULT AND DOWNWARD TRENDING BP AND PT REPORTS HAS HX OF LOW BLOOD PRESSURE AND HAS HAD TO GO TO ICU BEFORE WHEN IT WAS TO LOW,ORDERS RECIEVED FOR 5OOCC NS FLUID BOLUS NOW, GIVEN
--- NOTE | 2019-01-14 03:45 | NUR ---
BP NOW 99/54 AFTER 500CC NS BOLUS
[2019-01-14 06:57] LABS: HEMATOCRIT 29.3 % (36.0-48.0); HEMOGLOBIN 8.7 g/dL (12-16); MCH 23.1 pg (26.0-34.0); MCHC 29.7 g/dL (31.0-37.0); MCV 77.9 fL (80.0-100.0); MEAN PLATELET VOLUME 10.7 fL (7.4-10.4); RBC 3.76 10x6/uL (4.00-5.40); RDW 16.5 % (11.5-14.5); WBC 4.9 10x3/uL (4.8-10.8)
--- NOTE | 2019-01-14 07:30 | NUR ---
PT RESTING IN BED NO ACUTE DISTRESS. PT DENIES PAIN AT THIS TIME. IV TO LEFT FOREARM WITH 1/2 NS @ 100ML/HR INFUSING VIA PUMP. SITE WITHOUT REDNESS OR EDEMA. DRESSING TO LEFT LOWER EXTREMITY, C/D/I. ABLE TO MOVE TOES. WARM TO TOUCH, PULSES PALPABLE. DENIES FURTHER NEEDS AT THIS TIME. CL WITHIN REACH. ENCOURAGED TO CALL WITH NEEDS. CONTINUE POC
[2019-01-14 08:30] LABS: % SATURATION 13 % (15-55); IRON 37 ug/dl (35-150); TOTAL IRON BIND CAPACITY 277 ug/dl (260-445); UNSAT IRON BIND CAPACITY 240 ug/dl (150-375)
[2019-01-14 08:58] LABS: CALC OSMOLALITY 278 mosm/kg (275-300); CALCIUM 7.8 mg/dL (8.5-10.1); CARBON DIOXIDE 25.8 mmol/L (21.0-32.0); CHLORIDE - SERUM 107 mmol/L (98-107); CREATININE - SERUM 0.8 mg/dL (0.6-1.3); FERRITIN 53 ng/mL (3-244); GLUCOSE 95 mg/dL (74-106); LDH 218 U/L (81-234); POTASSIUM - SERUM 4.2 mmol/L (3.5-5.1); SODIUM 141 mmol/L (136-145); UREA NITROGEN 6 mg/dL (7-18); eGFR NON AFRICAN AMERICAN 76 mL/min (90-120)
[2019-01-14 10:44] LABS: APPEARANCE CLEAR (CLEAR); COLOR YELLOW (YELLOW); NITRITE NEGATIVE (NEGATIVE); PROTEIN NEGATIVE (NEGATIVE); SPECIFIC GRAVITY 1.015 (1.005-1.020)
[2019-01-14 10:45] LABS: BILIRUBIN NEGATIVE (NEGATIVE); GLUCOSE NEGATIVE (NEGATIVE); KETONE SMALL mg/dL (NEGATIVE); UROBILINOGEN NORMAL (NORMAL)
[2019-01-14 17:11] LABS: BASOPHILS 0.2 % (0-2); EOSINOPHILS 0 % (0-7); HEMATOCRIT 30.9 % (36.0-48.0); HEMOGLOBIN 9.2 g/dL (12-16); IMMATURE GRANULOCYTES 0.2 % (0-5); LYMPHOCYTES 9.3 % (15-50); MCH 23.3 pg (26.0-34.0); MCHC 29.8 g/dL (31.0-37.0); MCV 78.2 fL (80.0-100.0); MONOCYTES 12.5 % (2-11); NEUTROPHILS 77.8 % (40-80); PLATELET COUNT 144 10x3/uL (130-400); RBC 3.95 10x6/uL (4.00-5.40); RDW 16.2 % (11.5-14.5); WBC 5.9 10x3/uL (4.8-10.8)
--- NOTE | 2019-01-14 20:00 | NUR ---
ALERT RESTING IN BED WITH CPM IN USE, DENIES PAIN OR NEEDS AT THIS TIME, SEE SHIFT ASSESSMENT, CALL LIGHT IN REACH
[2019-01-15] VITALS: BP 164/74
[2019-01-15 04:00] VITALS: BP 151/78
--- NOTE | 2019-01-15 07:05 | NUR ---
ALERT AND ORIENTED, RESTING IN BED. NO C/O PAIN. NO S/S OF ACUTE DISTRESS NOTED. POD #2 LTK REVISION, DRESSING C/D/I. CPM ON AT THIS TIME. ON 4L O2, NC. IV TO LEFT FOREARM, SL. SITE PATENT WITHOUT REDNESS OR SWELLING. DENIES ANY NEEDS AT THIS TIME. CALL LIGHT IN REACH. WILL CONTINUE TO MONITOR.
[2019-01-15 07:25] LABS: BASOPHILS 0.4 % (0-2); EOSINOPHILS 0.6 % (0-7); HEMATOCRIT 30.4 % (36.0-48.0); HEMOGLOBIN 9.2 g/dL (12-16); IMMATURE GRANULOCYTES 0.4 % (0-5); MCH 23.4 pg (26.0-34.0); MCHC 30.3 g/dL (31.0-37.0); MCV 77.4 fL (80.0-100.0); MEAN PLATELET VOLUME 10.7 fL (7.4-10.4); MONOCYTES 14.3 % (2-11); NEUTROPHILS 69.3 % (40-80); PLATELET COUNT 167 10x3/uL (130-400); RBC 3.93 10x6/uL (4.00-5.40); RDW 16.3 % (11.5-14.5); WBC 5.3 10x3/uL (4.8-10.8)
[2019-01-15 07:27] LABS: ANION GAP 8.4 mmol/L (8-16); CALCIUM 8.5 mg/dL (8.5-10.1); CARBON DIOXIDE 30.1 mmol/L (21.0-32.0); CREATININE - SERUM 0.9 mg/dL (0.6-1.3)
[2019-01-15 07:28] LABS: POTASSIUM - SERUM 3.5 mmol/L (3.5-5.1)
[2019-01-15 08:13] VITALS: BP 133/70
--- NOTE | 2019-01-15 10:45 | NUR ---
I have reviewed this patient and I concur with the Shift Assessment completed by the Licensed Practical Nurse today this shift.
[2019-01-15 11:38] VITALS: BP 134/77
[2019-01-15 12:25] VITALS: BP 130/70
--- NOTE | 2019-01-15 12:51 | MORECARE ---
CASE MANAGEMENT DISCHARGE SUMMARY PATIENT: IKER JOYA UNIT: [id number] ADM DATE: 01/13/19 AGE: 68 : 52 SEX: F ROOM/BED: D.2211 AUTHOR: MARYSE,DOC PHYSICIAN: REFERRING PHYSICIAN: JORDAN BRISENO MD DATE OF SERVICE: 01/15/19 Discharge Plan Patient Name: IKER JOYA Facility: [facility]:[place] : 1950 Planned Disposition: Home Anticipated Discharge Date: 01/17/19 Discharge Date: Expected LOS: 4 Initial Reviewer: [email or web address] Initial Review Date: 01/13/2019 Generated: 01/15/19 1:51 pm Comments DCP- Discharge Planning Updated by [email or web address]: Kelsey Lanza on 01/15/19 11:[address] DC PLAN: Wants Inpatient rehab- Has [facility] at present. ANTICIPATED DC NEEDS: Rehab CM met with patient to complete initial dc planning assessment. CM educated patient on the CM role and verbal consent given by patient to complete assessment. CM verified patient's address, phone number, and emergency contact phone numbers. 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 [employer] ROOF BOLTER patient repots she was independent in her care at home. Patient currently has [facility] and wishes to resume at discharge. JOAO form signed by patient for resumption of [facility] if she goes home. Signed form placed in chart and signed form given to patient. At discharge patient plans to return and feels this is a safe discharge. Patient is requesting to go to Inpatient Rehab at time of dc. Patient reports her will transport her home at time of discharge if she does not qualify for rehab. CM will continue to follow and will assist as needed with dc plans/needs. Order received for [place] rehab consult. Left Tata a message regarding referral. Kelsey Lanza RN, [facility] DCPIA - Discharge Planning Initial Assessment Updated by [email or web address]: Kelsey Lanza on 01/15/19 12:47 pm * Is the patient Alert and Oriented? Yes * How many steps to enter\exit or inside your home? NONE * PCP Dr. Zhao * Pharmacy [facility] on [address] * Preadmission Environment Home with Family * ADLs Independent * Equipment Bedside Commode Rolling Walker Tub Bench * List name and contact numbers for known caregivers / representatives who currently or will assist patient after discharge: Fili Joya - [phone] - [phone] * Verbal permission to speak to the caregivers and representatives has been obtained from the patient. Yes * Community resources currently utilized Home Health * Please name any agencies selected above. Current [facility] patient. JOAO signed for resumption. * Additional services required to return to the preadmission environment? Yes * Can the patient safely return to the preadmission environment? Yes * Has this patient been hospitalized within the prior 30 days at any hospital? No Patient Name: IKER JOYA Page [phone] at 1251 All edits/amendments must be made on the electronic document DICTATION DATE: 01/15/19 125 COMMERCIAL CREDIT REVIEWER: AFTAB 01/15/19 1251 RPT#: [id number] DC DATE: STATUS: ADM IN [facility] [address] [place] [address] END OF REPORT
--- NOTE | 2019-01-15 13:37 | NUR ---
Rehab Note- Acute Inpatient REhab prescreen order received. The patient has [employer] insurance and will require a PreAuth prior to an acute inpatient rehab stay. Will need an OT Eval for the PreAuth process. Will begin the preauth process. Thank you for this referral! Tata Brock RN Clinical Liaison, [facility] Rehab
--- NOTE | 2019-01-15 18:36 | NUR ---
RESTING IN BED, EYES CLOSED. RESPIRATIONS EVEN AND UNLABORED. NO S/S OF ACUTE DISTRESS NOTED. RESTING COMFORTABLY. WILL CONTINUE TO MONITOR.
[2019-01-15 20:00] VITALS: BP 149/77
[2019-01-16] VITALS: BP 160/78
--- NOTE | 2019-01-16 00:11 | NUR ---
PT RESTING IN BED. EYES CLOSED. NO SIGNS OF DISTRESS. BREATHING EVEN AND UNLABORED. IV SITE LT FA DRESSING CLEAN DRY AND INTACT. NO SIGNS OF INFECTION. BOWEL SOUNDS ACTIVE. SKIN CLEAN DRY AND INTACT. LT KNEE DRESSING CLEAN DRY AND INTACT. WILL CONTINUE PLAN OF CARE. CALL LIGHT IN REACH. BED LOWERED AND LOCKED. BED RAILS UPX2.
[2019-01-16 04:00] VITALS: BP 149/79
--- NOTE | 2019-01-16 05:22 | NUR ---
I have reviewed this patient and I concur with the Shift Assessment completed by the Licensed Practical Nurse today this shift.
[2019-01-16 06:08] LABS: BASOPHILS 0.2 % (0-2); EOSINOPHILS 2.2 % (0-7); HEMOGLOBIN 8.7 g/dL (12-16); IMMATURE GRANULOCYTES 0.2 % (0-5); LYMPHOCYTES 9.7 % (15-50); MCH 23.2 pg (26.0-34.0); MCV 77.3 fL (80.0-100.0); MEAN PLATELET VOLUME 10.2 fL (7.4-10.4); MONOCYTES 14.1 % (2-11); NEUTROPHILS 73.6 % (40-80); PLATELET COUNT 157 10x3/uL (130-400); RBC 3.75 10x6/uL (4.00-5.40); RDW 16.3 % (11.5-14.5); WBC 5.5 10x3/uL (4.8-10.8)
[2019-01-16 06:30] LABS: CALC OSMOLALITY 278 mosm/kg (275-300); CALCIUM 8.4 mg/dL (8.5-10.1); CARBON DIOXIDE 31.5 mmol/L (21.0-32.0); CHLORIDE - SERUM 103 mmol/L (98-107); CREATININE - SERUM 0.8 mg/dL (0.6-1.3); GLUCOSE 98 mg/dL (74-106); POTASSIUM - SERUM 3.8 mmol/L (3.5-5.1); SODIUM 141 mmol/L (136-145); UREA NITROGEN 6 mg/dL (7-18); eGFR NON AFRICAN AMERICAN 76 mL/min (90-120)
--- NOTE | 2019-01-16 07:00 | NUR ---
ALERT AND ORIENTED, RESTING IN BED EYES CLOSED. RESPIRATIONS EVEN AND UNLABORED. DRESSING TO LEFT KNEE, C/D/I. ON 4L O2, NC. IV TO LEFT FOREARM, SL. SITE PATENT WITHOUT REDNESS OR SWELLING. DENIES ANY NEEDS AT THIS TIME. CALL LIGHT IN REACH. WILL CONTINUE TO MONITOR.
[2019-01-16 09:23] VITALS: BP 147/71
--- NOTE | 2019-01-16 11:44 | NUR ---
I have reviewed this patient and I concur with the Shift Assessment completed by the Licensed Practical Nurse today this shift.
[2019-01-16 13:08] VITALS: BP 131/82
--- NOTE | 2019-01-16 15:19 | NUR ---
OT NOTE: PT COMPLETED ADL MOB WITH SBA. PT COMPLETED STANDING BALANCE WITH SBA/CGA. PT COMPLETED TOILETING TASKS WITH SBA. THANK YOU, VILMA VALDEZ
[2019-01-16 17:42] VITALS: BP 134/77
--- NOTE | 2019-01-16 18:18 | NUR ---
ALERT AND ORIENTED, RESTING IN BED. NO C/O PAIN. NO S/S OF ACUTE DISTRESS NOTED. DENIES ANY NEEDS AT THIS TIME. CALL LIGHT IN REACH. WILL CONTINUE TO MONITOR.
--- NOTE | 2019-01-17 01:47 | NUR ---
PT RESTING IN BED. EYES CLOSED. NO SIGNS OF DISTRESS. BREATHING EVEN AND UNLABORED. IV SITE LT FA DRESSING CLEAN DRY AND INTACT. NO SIGNS OF INFECTION. BOWEL SOUNDS HYPOACTIVE. LUNG SOUNDS CLEAR. SKIN CLEAN DRY AND INTACT. LT KNEE DRESSING CLEAN DRY AND INTACT. WILL CONTINUE PLAN OF CARE. CALL LIGHT IN REACH. BED LOWERED AND LOCKED. BED RAILS UPX2. TEDS AND SCDS ON.
[2019-01-17 04:00] VITALS: BP 142/81
--- NOTE | 2019-01-17 04:50 | NUR ---
I have reviewed this patient and I concur with the Shift Assessment completed by the Licensed Practical Nurse today this shift.
[2019-01-17 06:28] LABS: BASOPHILS 0.5 % (0-2); EOSINOPHILS 5.3 % (0-7); HEMATOCRIT 29.7 % (36.0-48.0); HEMOGLOBIN 8.9 g/dL (12-16); IMMATURE GRANULOCYTES 0.5 % (0-5); MCH 23.3 pg (26.0-34.0); MCV 77.7 fL (80.0-100.0); MONOCYTES 13.8 % (2-11); NEUTROPHILS 56.9 % (40-80); PLATELET COUNT 175 10x3/uL (130-400); RBC 3.82 10x6/uL (4.00-5.40); RDW 16.5 % (11.5-14.5); WBC 4.3 10x3/uL (4.8-10.8)
[2019-01-17 06:47] LABS: CALC OSMOLALITY 278 mosm/kg (275-300); CALCIUM 8.8 mg/dL (8.5-10.1); CARBON DIOXIDE 32.7 mmol/L (21.0-32.0); CHLORIDE - SERUM 103 mmol/L (98-107); CREATININE - SERUM 0.7 mg/dL (0.6-1.3); GLUCOSE 94 mg/dL (74-106); POTASSIUM - SERUM 3.2 mmol/L (3.5-5.1); SODIUM 141 mmol/L (136-145); UREA NITROGEN 7 mg/dL (7-18); eGFR NON AFRICAN AMERICAN 89 mL/min (90-120)
--- NOTE | 2019-01-17 07:05 | NUR ---
RESTING IN BED, EYES CLOSED. RESPIRATIONS EVEN AND UNLABORED. NO C/O PAIN. NO S/S OF ACUTE DISTRESS NOTED. CPM ON AT THIS TIME. ON 2.5L O2, NC. IV TO LEFT FOREARM, SL. SITE PATENT WITHOUT REDNESS OR SWELLING. DRESSING TO LEFT KNEE, C/D/I. DENIES ANY NEEDS AT THIS TIME. CALL LIGHT IN REACH. WILL CONTINUE TO MONITOR.
[2019-01-17 08:34] VITALS: BP 138/73
--- NOTE | 2019-01-17 09:07 | NUR ---
OT NOTE: PT PERFORMED WELL TODAY. BED MOB WITH CGA AND EXT TIME; TOILET TRANSFER WITH WALKER AND CGA; TOILET HYGIENE WITH SBA; ABLE TO AMB APPROX 80 FT WTIH WALKER, 02, AND MIN ASSIST TO IMPROVE FUNCTIONAL ENDURANCE. TRANSFERRED TO CHAIR WITH MIN ASSIST; FEEDING AND GROOMING WITH SET UP. HOPES TO TRANSFER TO REHAB TODAY. SINGH ROBERTS, OTR/L
[2019-01-17 12:42] VITALS: BP 114/50; BP 124/76
[2019-01-17] MEDS ORDERED: ELIQUIS2.5 MG PO (14:02)
[2019-01-17] MEDS ORDERED: PERCOCET 10-321 EAC1 PO (14:03)
--- NOTE | 2019-01-17 14:25 | NUR ---
I have reviewed this patient and I concur with the Shift Assessment completed by the Licensed Practical Nurse today this shift.
--- NOTE | 2019-01-17 16:14 | NUR ---
OT NOTE: PT COMPLETED TOILETING WITH CGA. PT COMPLETED LB HYGIENE WITH CGA. PT COMPLETED BED MOB WITH SBA. PT COMPLETED ADL MOB WITH R/W WITH SBA/CGA. THANK YOU, VILMA VALDEZ
[2019-01-17 16:26] VITALS: BP 137/71
--- NOTE | 2019-01-17 18:41 | NUR ---
ALERT AND ORIENTED RESTING IN BED. NO C/O PAIN. NO S/S OF ACUTE DISTRESS NOTED. DENIES ANY NEEDS AT THIS TIME. CALL LIGHT IN REACH. WILL CONTINUE TO MONITOR.
--- NOTE | 2019-01-17 19:15 | NUR ---
PATIENT ALERT AND ORIENTED WITH DAUGHTER AND SON IN ROOM. PATIENT WEARING GLASSES. NO LENS IN THE RIGHT EYE DUE TO RECENT CATARACT SURGERY. PATIENT WEARING DENTURES AND STATES SHE IS NOT TAKING THEM OUT AT NIGHT AND NEVER DOES. LEFT FOREARM IV THAT IS SALINE LOCKED AT THIS TIME. PATIENT HAS TONY WRAP TO THE LEFT LOWER EXTREMETY. BRUISING NOTED FROM KNEE TO CALF AREA. CAPILLARY REFILL LESS THAN 3 SECONDS. WARM TO TOUCH. FOOT PUMPS STRONG AND EQUAL. PLACED PATIENT ON CPM. DENIES FURTHER NEEDS AT TIME. CPOC.
[2019-01-17 21:02] VITALS: BP 121/62
[2019-01-18 01:20] VITALS: BP 116/56
--- NOTE | 2019-01-18 03:40 | NUR ---
I have reviewed this patient and I concur with the Shift Assessment completed by the Licensed Practical Nurse today this shift.
[2019-01-18 05:52] VITALS: BP 129/72
[2019-01-18 06:28] LABS: BASOPHILS 0.7 % (0-2); EOSINOPHILS 6.1 % (0-7); HEMATOCRIT 29.7 % (36.0-48.0); HEMOGLOBIN 8.9 g/dL (12-16); IMMATURE GRANULOCYTES 0.7 % (0-5); LYMPHOCYTES 25.9 % (15-50); MCH 23.5 pg (26.0-34.0); MCV 78.4 fL (80.0-100.0); MONOCYTES 13.7 % (2-11); NEUTROPHILS 52.9 % (40-80); PLATELET COUNT 182 10x3/uL (130-400); RBC 3.79 10x6/uL (4.00-5.40); RDW 16.7 % (11.5-14.5); WBC 4.4 10x3/uL (4.8-10.8)
[2019-01-18 06:37] LABS: CALC OSMOLALITY 278 mosm/kg (275-300); CALCIUM 8.8 mg/dL (8.5-10.1); CARBON DIOXIDE 34.2 mmol/L (21.0-32.0); CHLORIDE - SERUM 102 mmol/L (98-107); CREATININE - SERUM 0.8 mg/dL (0.6-1.3); GLUCOSE 88 mg/dL (74-106); POTASSIUM - SERUM 3.7 mmol/L (3.5-5.1); SODIUM 142 mmol/L (136-145); eGFR NON AFRICAN AMERICAN 76 mL/min (90-120)
[2019-01-18 06:39] LABS: UREA NITROGEN 5 mg/dL (7-18)
--- NOTE | 2019-01-18 07:20 | NUR ---
PT RESTING IN BED. NO SIGNS OF DISTRESS. IV TO LEFT FORARM PATENT NO REDNESS OR TENDERNESS. ON 2.5L NC. INCISION TO LEFT KNEE. DRESSING CLEAN AND INTACT. COMPLAINS OF PAIN. MEDICATIONS GIVEN. DENIES ANY FURTHER NEED AT THIS TIME. CALL LIGHT IN REACH. BED LOW POSITION. NO FAMILY AT BEDSIDE AT THIS TIME.
--- NOTE | 2019-01-18 08:00 | NUR ---
RESTING,WITHOUT DISTRESS.CALL LIGHT IN REACH.
[2019-01-18 08:51] VITALS: BP 127/55
[2019-01-18 12:40] VITALS: BP 107/49
[2019-01-18 17:29] VITALS: BP 107/38
--- NOTE | 2019-01-18 19:45 | NUR ---
Patient sitting up in bed, on CPM machine. Patient states she is in pain and rates it a 4. Patient states she would like some pain medicine. Bed rails x2. Call light and bed side table within reach.
[2019-01-18 20:56] VITALS: BP 129/68
[2019-01-19 00:36] VITALS: BP 114/66
[2019-01-19 05:18] LABS: BASOPHILS 0.4 % (0-2); EOSINOPHILS 4.9 % (0-7); HEMATOCRIT 29.9 % (36.0-48.0); IMMATURE GRANULOCYTES 0.7 % (0-5); LYMPHOCYTES 23.9 % (15-50); MCH 23.6 pg (26.0-34.0); MCHC 30.1 g/dL (31.0-37.0); MCV 78.3 fL (80.0-100.0); MEAN PLATELET VOLUME 9.8 fL (7.4-10.4); MONOCYTES 11.3 % (2-11); NEUTROPHILS 58.8 % (40-80); PLATELET COUNT 219 10x3/uL (130-400); RBC 3.82 10x6/uL (4.00-5.40); RDW 16.8 % (11.5-14.5); WBC 5.5 10x3/uL (4.8-10.8)
[2019-01-19 05:21] VITALS: BP 128/63
[2019-01-19 05:35] LABS: CALC OSMOLALITY 278 mosm/kg (275-300); CALCIUM 8.9 mg/dL (8.5-10.1); CARBON DIOXIDE 34.8 mmol/L (21.0-32.0); CHLORIDE - SERUM 100 mmol/L (98-107); CREATININE - SERUM 0.8 mg/dL (0.6-1.3); GLUCOSE 94 mg/dL (74-106); POTASSIUM - SERUM 3.3 mmol/L (3.5-5.1); SODIUM 141 mmol/L (136-145); UREA NITROGEN 7 mg/dL (7-18); eGFR NON AFRICAN AMERICAN 76 mL/min (90-120)
[2019-01-19 09:19] VITALS: BP 128/63
--- NOTE | 2019-01-19 10:15 | NUR ---
PT ALERT X 4. BREATH SOUNDS DIMINISHED TO LOWER LOBES, 1L O2 PER NC. IV TO LEFT HAND, PATENT, DRESSING CDI. TONY TO LEFT LEG, CDI. +1 EDEMA TO BLE, ELEVATED. PT REPORTING HEADACHE OF 7/10, MEDICATED PER ORDERS, WILL MONITOR. PT SITTING UP IN CHAIR. NO OTHER NEEDS AT THIS TIME.
[2019-01-19 12:20] VITALS: BP 138/90
[2019-01-19 17:04] VITALS: BP 123/69
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
[2019-01-19 18:55] LABS: APPEARANCE CLEAR (CLEAR); BILIRUBIN NEGATIVE (NEGATIVE); COLOR YELLOW (YELLOW); GLUCOSE NEGATIVE (NEGATIVE); KETONE NEGATIVE (NEGATIVE); NITRITE NEGATIVE (NEGATIVE); PROTEIN NEGATIVE (NEGATIVE); SPECIFIC GRAVITY 1.005 (1.005-1.020); UROBILINOGEN NORMAL (NORMAL)
[2019-01-19 20:00] VITALS: BP 128/68
[2019-01-20 04:00] VITALS: BP 120/70
--- NOTE | 2019-01-20 06:24 | NUR ---
WOKE PT TO GIVE MORNING MEDS. PT C/O KNEE PAIN 12/19. GAVE NORCO-10 AND PHENERGAN 25 MG PO. BROUGHT ICE WATER AND ASSISTED PT UP TO BEDSIDE COMMODE TO VOID. NO OTHER NEEDS. WILL REASSESS AND CONTINUE TO MONITOR.
--- NOTE | 2019-01-20 07:00 | NUR ---
PT IS RESTING IN BED WITH EYES CLOSED. RESPIRATIONS ARE EVEN AND UNLABORED. PT IS EASILY AROUSED WITH VERBAL STIMULATION. PT IS AAO X 4 UPON AROUSAL. PT QUICKLY RETURNS TO RESTING STATE DURING ASSESSMENT AND HAS TO BE AROUSED MULTIPLE TIMES TO ANSWER QUESTIONS. PT DOES ANSWER QUESTIONS APPROPRIATELY. DRESSING TO LEFT KNEE IS CDI. PEDAL PULSES PALP. PT DENIES PRESENCE OF PAIN/N/V AT THIS TIME. PT IS NOT ON CPM MACHINE AT THIS TIME. FALL PRECAUTIONS ARE IN PLACE. BED IS IN THE LOWEST POSITION. CALL LIGHT AND BEDSIDE TABLE ARE WITHIN REACH. SIDE RAILS X 2. PT DENIES FURTHER NEEDS. WILL CONT TO MONITOR.
[2019-01-20 08:21] VITALS: BP 115/64
--- NOTE | 2019-01-20 08:45 | NUR ---
DRESSING TO LEFT KNEE CHANGED PER ORDER. PT TOLERATED WELL. BED IS IN THE LOWEST POSITION. BED ALARM IS ON AND WORKING.CALL LIGHT AND BEDSIDE TABLE ARE WITHIN REACH. SIDE RAILS X 2. PT DENIES FURTHER NEEDS. WILL CONT TO MONITOR.
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
[2019-01-20 11:36] LABS: BASOPHILS 0.6 % (0-2); EOSINOPHILS 4.8 % (0-7); HEMATOCRIT 32.7 % (36.0-48.0); HEMOGLOBIN 9.8 g/dL (12-16); IMMATURE GRANULOCYTES 2.1 % (0-5); LYMPHOCYTES 30.2 % (15-50); MCH 23.6 pg (26.0-34.0); MCV 78.6 fL (80.0-100.0); MEAN PLATELET VOLUME 9.7 fL (7.4-10.4); MONOCYTES 11.5 % (2-11); NEUTROPHILS 50.8 % (40-80); PLATELET COUNT 240 10x3/uL (130-400); RBC 4.16 10x6/uL (4.00-5.40); RDW 17.2 % (11.5-14.5); WBC 6.2 10x3/uL (4.8-10.8)
[2019-01-20] MEDS ORDERED: PERCOCET 10-321 EAC1 PO (11:46)
[2019-01-20] MEDS ORDERED: ELIQUIS2.5 MG PO (11:50)
[2019-01-20 12:09] LABS: ANION GAP 14.9 mmol/L (8-16); BILIRUBIN - TOTAL 0.93 mg/dL (0.2-1.3); CARBON DIOXIDE 29.3 mmol/L (21.0-32.0); CREATININE - SERUM 0.9 mg/dL (0.6-1.3); PROTEIN - SERUM 6.3 g/dL (6.4-8.2)
[2019-01-20 12:12] VITALS: BP 118/77
[2019-01-20 12:12] LABS: POTASSIUM - SERUM 4.2 mmol/L (3.5-5.1)
--- NOTE | 2019-01-20 14:51 | NUR ---
OT NOTE: PT PERFORMED BED MOB WITH SPV; TRANSFERS WITH WALKER AND CGA; FUNCTIONAL TRANSFER FROM BED TO CHAIR TO BED WITH WALKER AND CGA; SIMPLE GROOMING IWTH SET UP; REQUIRED MOD ASSIST WITH TOILET HYGIENE AND DONNING SOCKS. SINGH ROBERTS, OTR/L
--- NOTE | 2019-01-20 15:02 | NUR ---
OT NOTE: PT COMPLETED BED MOB AND ADL MOB WITH RW WITH SBA/CGA. PT COMPLETED TOILETING TASKS AND CLOTHING MANAGEMENT WITH SBA/CGA. THANK YOU,VILMA VALDEZ
[2019-01-20 16:57] VITALS: BP 125/67
--- NOTE | 2019-01-20 23:00 | NUR ---
ALERT SITTING UP IN BED FAMILY AT BEDSIDE, DENIES PAIN OR NEEDS AT THIS TIME, SEE SHIFT ASSESSMENT, CALL MADDY MUNOZ
[2019-01-21] VITALS: BP 129/82
[2019-01-21 04:53] LABS: ALBUMIN 2.8 g/dL (3.4-5.0); ANION GAP 9.8 mmol/L (8-16); BILIRUBIN - TOTAL 0.93 mg/dL (0.2-1.3); CALCIUM 8.5 mg/dL (8.5-10.1); CARBON DIOXIDE 32.1 mmol/L (21.0-32.0); POTASSIUM - SERUM 3.9 mmol/L (3.5-5.1); PROTEIN - SERUM 5.7 g/dL (6.4-8.2)
[2019-01-21 05:02] LABS: BASOPHILS 0.7 % (0-2); EOSINOPHILS 4.4 % (0-7); HEMATOCRIT 29.4 % (36.0-48.0); HEMOGLOBIN 8.9 g/dL (12-16); IMMATURE GRANULOCYTES 1.7 % (0-5); LYMPHOCYTES 19.5 % (15-50); MCH 23.9 pg (26.0-34.0); MCHC 30.3 g/dL (31.0-37.0); MCV 78.8 fL (80.0-100.0); MEAN PLATELET VOLUME 9.8 fL (7.4-10.4); MONOCYTES 13.2 % (2-11); NEUTROPHILS 60.5 % (40-80); PLATELET COUNT 224 10x3/uL (130-400); RBC 3.73 10x6/uL (4.00-5.40); RDW 17.4 % (11.5-14.5)
[2019-01-21 08:19] VITALS: BP 110/52
[2019-01-21 12:37] VITALS: BP 110/66
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
--- NOTE | 2019-01-21 14:21 | NUR ---
DISCHARGE PAPERWORK SIGNED, ALL QUESTIONS ANSWERED. IV TO RIGHT HAND DC'D, TIP INTACT. ESCORTED OUT BY WHEELCHAIR.
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
--- NOTE | 2019-01-30 11:00 | OP ---
PATIENT NAME: IKER JOYA MEDICAL RECORD: [id number] :[birth year] LOCATION:D.MS [address] ADMISSION DATE:01/13/19 SURGEON: JORDAN BRISENO MD DATE OF OPERATION: 01/13/2019 PREOPERATIVE DIAGNOSIS: Painful total knee arthroplasty, left. POSTOPERATIVE DIAGNOSIS: Painful total knee arthroplasty, left. PROCEDURE: Revision total knee arthroplasty of the left knee with removal of previously placed total knee arthroplasty. SURGEON: Jordan Briseno MD WEB PAGE DEVELOPER: Michael Gomez APN INTRAOPERATIVE COMPLICATIONS: None. 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 OPERATIVE SUMMARY IN DETAIL: After obtaining the appropriate preoperative orthopedic surgery consent as well as anesthetic consultation, evaluation and clearance, the patient was brought to the operating room and placed on the operating table in supine position. After general laryngeal mask airway was administered, tourniquet was placed about the proximal aspect of the left lower extremity. Left lower extremity was then prepped and draped in routine sterile fashion. The leg was elevated, tourniquet was inflated to 350 mmHg. An incision was made over the previous incision, taken down for paramedian arthrotomy. The patella was exposed. The patella was in good overall condition and was not replaced. Distal femur was exposed. Polyethylene was removed. Delamination as noted above was seen. The distal femur was then removed with very little bone loss as was the tibial baseplate. Having completed this, cleanup cuts were done for the Triathlon total stabilized component, resulting in a size 4 femoral component and a size 4 tibial component to see the appropriate offset stem length that is available in the patient's hospital chart. Tibial insert was a size 11. After all the cleanup cuts and chamfer cuts were made, these components were placed together and put in the knee and taken through range of motion and found to be stable in all planes with excellent tracking of the patella. At this point, the trials were removed. The final components were assembled on the back table. After they were cemented into place, all excess cement was removed. After it was allowed to harden, the knee was taken through range of motion and found to be stable in all planes. It was then irrigated and filled with a gram of vancomycin, a gram of tobramycin. Paramedian arthrotomy was closed with #2 Ethibond followed by #1 Vicryl, 2-0 Vicryl and skin daniel. Sterile dressings were applied by Michael Gomez APRN. The patient was awakened and taken to recovery room in stable condition. All final needle and sponge counts were correct. TRANSINT:[id number] Voice Confirmation ID: [id number] DOCUMENT ID: [id number] 01/29/19 Edited for srikanth Gomez. OPERATIVE REPORT [id number] IKER JOYA MD, JORDAN KHAN at 1100 CC: [id number] DICTATION DATE: 01/22/19 1300 REFRIGERATOR ROOM CLERK: 01/22/19 1356 DIS IN 01/21/19 [facility] [address] [place] [address]
== END 2019-01-21 14:22 | disposition home health service (06) | DRG 467 ==
LOC: D.SDCHOLD 01-08 10:00 → D.MS 01-13 08:10 → D.SDCHOLD 01-13 10:00 → D.MS 01-13 15:01
PROVIDERS: Internal Medicine Nephrology; Orthopaedic Surgery; ADMIT Orthopaedic Surgery; ATTEND Orthopaedic Surgery
PROC: 0SRD0J9 Replacement of Left Knee Joint with Synthetic Substitute, Cemented, Open Approach (ICD-10-PCS; 2019-01-13)
PROC: 0SPD0JZ Removal of Synthetic Substitute from Left Knee Joint, Open Approach (ICD-10-PCS; principal; 2019-01-13 11:45)
DX: T84.84XA Pain due to internal orthopedic prosthetic devices, implants and grafts, initial encounter (principal); D62 Acute posthemorrhagic anemia; F41.8 Other specified anxiety disorders; M54.9 Dorsalgia, unspecified; Z96.652 Presence of left artificial knee joint; I95.9 Hypotension, unspecified; I95.89 Other hypotension

== ENCOUNTER 2019-04-01 10:29 | Emergency (ER) | payer MEDICARE, OTHER ==
[~2019-04-01] VITALS: Ht 162.6 cm; Wt 90.0 kg
[~2019-04-01 10:29] MED LIST changes: +ELIQUIS2.5 MG PO; +PERCOCET 10-321 EAC1 PO; +TRAZODONE HCL150 MG PO
[2019-04-01 10:34] VITALS: Ht 162.6 cm; Wt 90.0 kg
[2019-04-01 10:54] LABS: BASOPHILS 0.5 % (0-2); HEMOGLOBIN 10.8 g/dL (12-16); LYMPHOCYTES 15.4 % (15-50); MCH 25.8 pg (26.0-34.0); MCHC 31.8 g/dL (31.0-37.0); MCV 81.3 fL (80.0-100.0); MEAN PLATELET VOLUME 8.6 fL (7.4-10.4); MONOCYTES 9.5 % (2-11); NEUTROPHILS 69.6 % (40-80); RBC 4.18 10x6/uL (4.00-5.40); WBC 4.4 10x3/uL (4.8-10.8)
[2019-04-01 10:57] LABS: PLATELET COUNT 143 10x3/uL (130-400)
[2019-04-01 11:06] LABS: APPEARANCE CLEAR (CLEAR); BILIRUBIN NEGATIVE (NEGATIVE); COLOR YELLOW (YELLOW); GLUCOSE NEGATIVE (NEGATIVE); KETONE NEGATIVE (NEGATIVE); NITRITE NEGATIVE (NEGATIVE); PROTEIN NEGATIVE (NEGATIVE); SPECIFIC GRAVITY 1.005 (1.005-1.020); UROBILINOGEN NORMAL (NORMAL)
[2019-04-01 11:09] LABS: ANION GAP 9.8 mmol/L (8-16); CALCIUM 8.1 mg/dL (8.5-10.1); CARBON DIOXIDE 30.7 mmol/L (21.0-32.0); CREATININE - SERUM 0.9 mg/dL (0.6-1.3); POTASSIUM - SERUM 3.5 mmol/L (3.5-5.1)
[2019-04-01 11:15] LABS: BILIRUBIN - TOTAL 0.43 mg/dL (0.2-1.3); PROTEIN - SERUM 5.8 g/dL (6.4-8.2)
[2019-04-01] MEDS ORDERED: MECLIZINE HCL12.5 MG PO (11:49)
[2019-04-01] MEDS ORDERED: MACROBID100 MG PO (11:49)
[2019-04-01 12:31] VITALS: BP 127/53
== END 2019-04-01 12:32 | disposition home or self-care (01) ==
LOC: D.ER 10:29
PROVIDERS: Family Medicine
DX: N39.0 Urinary tract infection, site not specified (principal); R42 Dizziness and giddiness; R51 Headache; R44.1 Visual hallucinations

== ENCOUNTER → 2019-05-06 15:19 | Outpatient (CLI) | payer MEDICARE, OTHER ==
[2019-04-01 10:34] VITALS: BMI 34.0
[~2019-05-06 15:19] MED LIST changes: +MACROBID100 MG PO; +MECLIZINE HCL12.5 MG PO
[2019-05-06 15:43] LABS: BASOPHILS 0.6 % (0-2); EOSINOPHILS 3.8 % (0-7); HEMATOCRIT 36.8 % (36.0-48.0); IMMATURE GRANULOCYTES 0.2 % (0-5); LYMPHOCYTES 28.7 % (15-50); MCH 26.1 pg (26.0-34.0); MCHC 32.6 g/dL (31.0-37.0); MCV 80.2 fL (80.0-100.0); MEAN PLATELET VOLUME 8.9 fL (7.4-10.4); MONOCYTES 8.9 % (2-11); NEUTROPHILS 57.8 % (40-80); RBC 4.59 10x6/uL (4.00-5.40); RDW 14.1 % (11.5-14.5); WBC 5.3 10x3/uL (4.8-10.8)
[2019-05-06 15:57] LABS: PLATELET COUNT 198 10x3/uL (130-400)
[2019-05-06 16:07] LABS: ALBUMIN 3.4 g/dL (3.4-5.0); ALKALINE PHOSPHATASE 91 U/L (30-120); ALT (SGPT) 15 U/L (10-68); BILIRUBIN - TOTAL 0.39 mg/dL (0.2-1.3); C-REACTIVE PROTEIN 1.5 mg/dL (0.0-0.9); CALC OSMOLALITY 277 mosm/kg (275-300); CALCIUM 9.1 mg/dL (8.5-10.1); CARBON DIOXIDE 29.8 mmol/L (21.0-32.0); CHLORIDE - SERUM 103 mmol/L (98-107); CREATININE - SERUM 0.8 mg/dL (0.6-1.3); GLUCOSE 85 mg/dL (74-106); POTASSIUM - SERUM 3.9 mmol/L (3.5-5.1); PROTEIN - SERUM 6.4 g/dL (6.4-8.2); SODIUM 141 mmol/L (136-145); UREA NITROGEN 8 mg/dL (7-18); eGFR NON AFRICAN AMERICAN 76 mL/min (90-120)
[2019-05-06 17:08] LABS: ERYTHROCYTE SEDIMENTATION RATE 23 mm/hr (0-30)
== END | disposition home or self-care (01) ==
LOC: D.LAB 15:19
PROVIDERS: ATTEND Orthopaedic Surgery
DX: M00.9 Pyogenic arthritis, unspecified (principal)

== ENCOUNTER → 2019-05-08 12:02 | Outpatient (CLI) | payer MEDICARE, OTHER ==
[2019-04-01 10:34] VITALS: BMI 34.0
--- NOTE | ~2019-05-08 | HEMODYNAMI ---
PATIENT:IKER JOYA MEDICAL RECORD: [id number] : [birth year] [id number] ADMISSION DATE: 05/08/19 Generatedon:05/08/201913:14 Patient name: IKER JOYA Patient #: [id number] SSN: : 1950 Date of study: 05/08/2019 Page: Of Hemodynamic Procedure Report Patient Data Patient Demographics Procedure consent was obtained First Name: IKER Gender: Female Last Name: TOAN : 1950 Patient #: [id number] Age: 68 year(s) Race: Unknown Additional ID: [id number] Contact details [address]: [address] [place] [address] State: [place] City: [place] Zip code: [address] Past Medical History Allergies: No known allergies Admission Admission Data Admission Date: 05/08/2019 Admission Time: 12:02 Procedure Procedure Types Cath Procedure Peripheral Cath Diagnostic Procedure Miscellaneous Aspiration/Injection (Joint) Procedure Description Procedure Date Procedure Date: 05/08/2019 Procedure Start Time: 13:05 Procedure Staff Name Function Fletcher Mcdonald MD Performing Physician Estiven Cunha RT Monitor Sara Milton RN Nurse Procedure Data Cath Procedure Fluoroscopy Diagnostic fluoroscopy Total fluoroscopy Time: 0.1 time: 0.1 min min Diagnostic fluoroscopy Total fluoroscopy dose: 1 dose: 1 mGy mGy Hemodynamics Rest Pre Cath Intra NCS Post Cath Procedure Log Time Note 12:54:23 Estiven Cunha RT (R) (CV) sent for patient. Start room use. 12:54:31 Time tracking: Regular hours (M-F 7:00 - 5:00) 12:54:38 Patient received from Other to IR Alert and oriented. Tansferred to table in Supine position. 12:54:40 Signed procedure consent form obtained from patient. 12:54:42 Correct patient and procedure confirmed by team. 12:54:46 - 12:54:47 Pre-procedure instructions explained to patient. 12:54:48 Pre-op teaching completed and patient verbalized understanding. 12:54:58 Patient allergic to No known allergies 12:55:03 Is patient on blood thinner?No 12:55:14 Left Knee was prepped with betadine and draped in sterile fashion. 12:55:23 SAFE-T PLUS MYELOGRAM TRAY opened to sterile field. 13:04:02 Physician arrived 13:04:02 --------ALL STOP TIME OUT------ 13:04:05 Final Timeout: patient, procedure, and site verified with staff and physician. All members of the team are in agreement. 13:04:10 Left knee site verified by team. 13:04:25 Sedation plan: Local Anesthetic Medication:Lidocaine 13:04:39 Procedure started. 13:04:40 Full Disclosure recording started 13:05:01 Local anesthetic to Left Knee with Lidocaine 1% by Fletcher Mcdonald MD.INITIAL ACCESS ONLY 13:12:37 Procedure ended.(Physican Out) 13:13:13 Fluoroscopy time 00.10 minutes. 13:13:16 Fluoroscopy dose: 1 mGy 13:13:16 Flurop Dose total: 1 13:13:43 bandaide applied site staple lab collected and sent to lab pt sent home Device Usage Item Name Manufacture Quantity Catalog Hospital Part Current Minimal Lot# / Number Charge Number Stock Stock Serial# Code SAFE-T CareFusion 1 [id number] PLUS MYELOGRAM TRAY Signature Audit Osprey Stage Time Signature Unsigned Intra-Procedure 05/08/2019 Estiven 1:14:07 PM Guerline RT (R) (CV) [facility] [address] [facility] [place] [address]
[2019-05-08 16:42] LABS: MACROPHAGES BF 8 %; MESOTHELIALS BF 1 %; NEUT - BF 68 %
== END | disposition home or self-care (01) ==
LOC: D.SP 12:02
PROVIDERS: ATTEND Orthopaedic Surgery
DX: Z96.652 Presence of left artificial knee joint (principal)

== ENCOUNTER 2019-05-16 13:05 | Inpatient (IN) | payer MEDICARE, OTHER ==
[~2019-05-16] VITALS: Ht 157.5 cm; Wt 95.7 kg
[2019-07-22] MEDS ORDERED: HYDROCODON-ACE1 EA10 PO (13:36)
[2019-07-22] MEDS ORDERED: PHENERGAN25 M1 PO (13:37)
[2019-07-22] MEDS ORDERED: CYMBALTA60 MG PO (13:38)
[2019-07-23 10:44] LABS: BASOPHILS 0.5 % (0-2); HEMATOCRIT 36.9 % (36.0-48.0); HEMOGLOBIN 11.5 g/dL (12-16); LYMPHOCYTES 28.6 % (15-50); MCH 25.7 pg (26.0-34.0); MCHC 31.2 g/dL (31.0-37.0); MCV 82.6 fL (80.0-100.0); MEAN PLATELET VOLUME 8.5 fL (7.4-10.4); MONOCYTES 8.9 % (2-11); PLATELET COUNT 186 10x3/uL (130-400); RBC 4.47 10x6/uL (4.00-5.40); RDW 14.7 % (11.5-14.5); WBC 5.5 10x3/uL (4.8-10.8)
[2019-07-23 10:48] LABS: ANION GAP 6.7 mmol/L (8-16); APTT 33.9 SECONDS (22.8-39.4); CALCIUM 8.9 mg/dL (8.5-10.1); CARBON DIOXIDE 30.9 mmol/L (21.0-32.0); CREATININE - SERUM 0.9 mg/dL (0.6-1.3); INR 1.01 (0.85-1.17); POTASSIUM - SERUM 3.6 mmol/L (3.5-5.1); PROTIME 13.3 SECONDS (11.6-15.0)
[2019-07-23 11:30] LABS: BACTERIA FEW /hpf (NEGATIVE); BILIRUBIN NEGATIVE (NEGATIVE); EPITHELIAL CELLS OCC /hpf (0-5); GLUCOSE NEGATIVE (NEGATIVE); KETONE NEGATIVE (NEGATIVE); NITRITE NEGATIVE (NEGATIVE); RED CELLS - URINE NONE SEEN /hpf (0-5); UROBILINOGEN NORMAL (NORMAL); WHITE CELLS - URINE 0-5 /hpf (NEGATIVE)
[2019-07-28] VITALS (7 sets, daily range): BP systolic 92–137; BP diastolic 51–82; BMI 33.9; BMI 38.7
[2019-07-28 11:48] LABS: BACTERIA FEW /hpf (NEGATIVE); BILIRUBIN NEGATIVE (NEGATIVE); EPITHELIAL CELLS RARE /hpf (0-5); GLUCOSE NEGATIVE (NEGATIVE); KETONE NEGATIVE (NEGATIVE); NITRITE NEGATIVE (NEGATIVE); RED CELLS - URINE OCC /hpf (0-5); SPECIFIC GRAVITY 1.015 (1.005-1.020); UROBILINOGEN NORMAL (NORMAL); WHITE CELLS - URINE OCC /hpf (NEGATIVE)
--- NOTE | 2019-07-28 17:24 | MORECARE ---
CASE MANAGEMENT DISCHARGE SUMMARY PATIENT: IKER JOYA UNIT: [id number] ADM DATE: 07/28/19 AGE: 68 : 54 SEX: F ROOM/BED: D.1209 AUTHOR: VALENTINA SERRA PHYSICIAN: REFERRING PHYSICIAN: JORDAN BRISENO MD DATE OF SERVICE: 07/28/19 Discharge Plan Patient Name: IKER JOYA [facility] [facility] 1950 Planned Disposition: Anticipated Discharge Date: Discharge Date: Expected LOS: 0 Initial Reviewer: [email or web address] Initial Review Date: 07/28/2019 Generated: 07/28/19 6:24 pm Patient Name: IKER JOYA Page 55825 at 1724 All edits/amendments must be made on the electronic document DICTATION DATE: 07/28/191723 WHOLESALE DIAMOND BROKER: AFTAB 07/28/191723 RPT#: [id number] DC DATE: STATUS: ADM IN [facility] [address] [place] [address] END OF REPORT
--- NOTE | 2019-07-28 17:45 | NUR ---
DIFFICULT TO AROUSE DUE TO SEDATION BUT ANSWERS QUESTIONS APPROPRIATE. DRESSING INTACT TO LEFT KNEE WITH MARCEL HOSE APPLIED WELL PLEXI AND SCD'S FOR THROMBOLITIC THERAPY. FALL PRECAUTIONS IN PLACE. PEDAL PULSES NOTED WITH GOOD ROM OF DIGITS. ORIENTED TO CALL LIGHT AND SURROUNDINGS.
--- NOTE | 2019-07-28 19:36 | NUR ---
PATIENT RESTING IN BED WITH EYES CLOSED AND NO S/S OF DISTRESS. BED IN LOWEST POSITION AND CALL LIGHT WITHIN REACH. WILL CONTINUE TO MONITOR.
--- NOTE | 2019-07-28 19:49 | NUR ---
PATIENT C/O 9/10 PAIN. WILL ADMINISTER PAIN MEDS PER ORDERS.
[2019-07-29 04:03] VITALS: BP 95/50
[2019-07-29 07:27] VITALS: BP 91/44
--- NOTE | 2019-07-29 07:33 | NUR ---
PT IS RESTING IN BED WITH EYES OPEN. RESPIRATIONS ARE EVEN AND UNLABORED. PT IS AAO X 4 AND DENIES PRESENCE OF N/V/DYSPNEA/SOB AT THIS TIME. DRESSING TO LEFT KNEE NOTED AND IS CDI. PT DENIES PRESENCE OF NUMBNESS/TINGLING TO BLE. PIV TO LEFT WRIST INFUSING WITHOUT DIFFICULTY. INCENTIVE SPIROMETER AT BEDSIDE. INCENTIVE SPIROMETER ENCOURAGED. PT DENIES FURTHER QUESTIONS REGARDING INCENTIVE SPIROMETER. PT WITH BLE MARCEL HOSE IN PLACE SCD TO RLE AND PLEXI BOOT TO LLE. ALL FALL PRECAUTIONS ARE IN PLACE. BED IS IN THE LOWEST POSITION. CALL LIGHT AND BEDSIDE TABLE ARE WITHIN REACH. SIDE RAILS X 2. PT DENIES FURTHER NEEDS. WILL CONT TO MONITOR.
[2019-07-29 09:51] LABS: HEMATOCRIT 33.3 % (36.0-48.0); HEMOGLOBIN 10.2 g/dL (12-16); MCH 25.8 pg (26.0-34.0); MCHC 30.6 g/dL (31.0-37.0); MCV 84.3 fL (80.0-100.0); MEAN PLATELET VOLUME 9.2 fL (7.4-10.4); RBC 3.95 10x6/uL (4.00-5.40); RDW 15.1 % (11.5-14.5); WBC 6.7 10x3/uL (4.8-10.8)
--- NOTE | 2019-07-29 10:14 | NUR ---
PT REFUSING BATH AT THIS TIME. COMPLETE LINEN CHANGED FOR PT COMFORT. PT SITTING IN BEDSIDE CHAIR. BESSIE ALARM IS ON AND WORKING. CALL LIGHT AND BEDSIDE TABLE ARE WITHIN REACH. PT DENIES FURTHER NEEDS. WILL CONT TO MONITOR.
[2019-07-29 10:23] LABS: ANION GAP 12.6 mmol/L (8-16); CARBON DIOXIDE 24.8 mmol/L (21.0-32.0); CREATININE - SERUM 1.2 mg/dL (0.6-1.3); POTASSIUM - SERUM 4.4 mmol/L (3.5-5.1)
--- NOTE | 2019-07-29 11:04 | NUR ---
PT SITTING IN BEDSIDE CHAIR AAO X 4. PT ASSISTED TO BEDSIDE COMMODE. WALKER USED WITH PARTIAL ASSIST WITH TRANSFERRING. PT WITH LARGE VOID AND ASSISTED BACK TO BEDSIDE CHAIR. PT DENIES PRESENCE OF N/V AND REPORTS SLIGHT DIZZINESS UPON TRANSFERRING. PT DENIES PRESENCE OF DYSPNEA/SOB AT THIS TIME. WILL OBTAIN VS. SEE VITALS FLOWSHEET. BESSIE ALARM IS ON AND WORKING. CALL LIGHT AND BEDSIDE TABLE ARE WITHIN REACH. WILL CONT TO MONITOR.
--- NOTE | 2019-07-29 11:44 | NUR ---
SPOKE WITH VERITO WALDRON APRN AND NOTIFIED OF PT HYPOTENSIVE STATE. TELEPHONE ORDERS RECD TO START 500ML NS BOLUS X 1 AND MONITOR PT BP. WILL PLACE ORDER AND ADMINISTER.
[2019-07-29 11:54] VITALS: BP 84/57
--- NOTE | 2019-07-29 13:10 | NUR ---
PT MARCEL HOSE REMOVED. SKIN IS WNL. BILATERAL PEDAL PULSES ARE PALP. CAP REFILL IS < 3 SECONDS. ALL FALL PRECAUTIOSN ARE IN PLACE. BED IS IN THE LOWEST POSITION. CALL LIGHT AND BEDSIDE TABLE ARE WITHIN REACH. SIDE RAILS X 2. PT DENIES FURTHER NEEDS. WILL CONT TO MONITOR.
--- NOTE | 2019-07-29 15:51 | MORECARE ---
CASE MANAGEMENT DISCHARGE SUMMARY PATIENT: IKER JOYA UNIT: [id number] ADM DATE: 07/28/19 AGE: 68 : 52 SEX: F ROOM/BED: D.1209 AUTHOR: VALENTIAN SERRA PHYSICIAN: REFERRING PHYSICIAN: JORDAN BRISENO MD DATE OF SERVICE: 07/29/19 Discharge Plan Patient Name: IKER JOYA Facility: [facility]:[place] : 1950 Planned Disposition: Anticipated Discharge Date: Discharge Date: Expected LOS: 0 Initial Reviewer: [email or web address] Initial Review Date: 07/28/2019 Generated: 07/29/19 4:50 pm Comments DCP- Discharge Planning Updated by [email or web address]: Sadia Valdovinos on 07/29/19 2:[address] CM met with patient to discuss initial discharge planning. Patient is in agreement to proceed with the assessment. Patient reports that she lives at home independently with her family. Patient is alert/oriented. Stairs/steps: Ramp. PCP: Dr. Cece Lvoe APRN. [facility]. Patient states she has been able to obtain all of her prescribed medications. HHS: [facility]. DME: Walker, BSC, CPM, Shower Chair. Patient gives permission to speak with family members. Emergency contact: Linda Mccarthy (dtr) [phone], Fili Joya (spouse) [phone]. Patient is Independent with all ADL's, medication management BUSINESS DIRECTOR. CM discussed the availability of HH, Rehab, SNF, OP Therapy, DME services. Patient states she plans to go into [facility]. Patient feels safe returning to previous environment. Patient denies hospitalization within the past 30 days. Patient denies the use of community resources BUSINESS DIRECTOR. Transportation at time of discharge: Fili or Linda. CM will follow ad assist PRN. Last DP export: 07/28/19 4:24 p Patient Name: IKER JOYA Page [phone] at 1551 All edits/amendments must be made on the electronic document DICTATION DATE: 07/29/19 1550 CENTRIFUGE OPERATOR: AFTAB 07/29/191549 RPT#: [id number] DC DATE: STATUS: ADM IN [facility] [address] [place] [address] END OF REPORT
--- NOTE | 2019-07-29 17:02 | MORECARE ---
CASE MANAGEMENT DISCHARGE SUMMARY PATIENT: IKER JOYA UNIT: [id number] ADM DATE: 07/28/19 AGE: 68 : 52 SEX: F ROOM/BED: D.1209 AUTHOR: VALENTINA SERRA PHYSICIAN: REFERRING PHYSICIAN: JORDAN BRISENO MD DATE OF SERVICE: 07/29/19 Discharge Plan Patient Name: IKER JOYA Facility: [facility] : 1950 Planned Disposition: Inpatient Rehab Facility Anticipated Discharge Date: Discharge Date: Expected LOS: 0 Initial Reviewer: [email or web address] Initial Review Date: 07/28/2019 Generated: 07/29/19 6:02 pm Comments DCP- Discharge Planning Updated by [email or web address]: Sadia Valdovinos on 07/29/19 2:[address] CM met with patient to discuss initial discharge planning. Patient is in agreement to proceed with the assessment. Patient reports that she lives at home independently with her family. Patient is alert/oriented. Stairs/steps: Ramp. PCP: Dr. Cece Love APRN. [facility]. Patient states she has been able to obtain all of her prescribed medications. [facility]: [facility]. DME: Walker, BSDonna, CPM, Shower Chair. Patient gives permission to speak with family members. Emergency contact: Linda Mccarthy (dtr) [phone], Fili Joya (spouse) [phone]. Patient is Independent with all ADL's, medication management FARM BOSS. CM discussed the availability of HH, Rehab, SNF, OP Therapy, DME services. Patient states she plans to go into [facility]. Patient feels safe returning to previous environment. Patient denies hospitalization within the past 30 days. Patient denies the use of community resources FARM BOSS. Transportation at time of discharge: Fili or Linda. CM will follow ad assist PRN. Last DP export: 07/29/19 2:51 p Patient Name: IKER JOYA Page 53636 at 1702 All edits/amendments must be made on the electronic document DICTATION DATE: 07/29/191701 BALER OPERATOR: DM 07/29/191701 RPT#: [id number] DC DATE: STATUS: ADM IN [facility] [address] [place] [address] END OF REPORT
[2019-07-29 17:12] VITALS: BP 137/59
--- NOTE | 2019-07-29 17:21 | NUR ---
PIV TO LEFT WRIST TENDER AND IRRITATING TO PT. PIV REMOVED WITH CATHETER TIP INTACT. DRESSING APPLIED. PIV TO RIGHT WRIST INSERTED. FLUIDS INFUSING PER ORDER WITHOUT DIFFICULTY.
--- NOTE | 2019-07-29 20:13 | NUR ---
ASSIT PT UP TO BEDSIDE COMMODE. PT USES WALKER FOR ASSISTANCE. NO SIGNS OF DISTRESS NOTED. RESPIRATIONS EVEN AND UNLABORED. ASSIST PT BACK TO BED. CALL LIGHT AND OTHER PERSONAL ITEMS WITH IN REACH. PT ENCOUAREGED TO CALL FOR HELP WHEN GETTING IN AND OUT OF BED AND NEEDED. WILL CONTIUE TO MONITOR
[2019-07-29 21:05] VITALS: BP 121/76
--- NOTE | 2019-07-30 03:44 | NUR ---
ASSIST UP TO BEDSIDE COMMODE AND BACK TO BED SEVERAL TIMES THROUGHOUT THE NIGHT. NO SIGNS OF DISTRESS NOTED. PT C/O PAIN, PRN PAIN MEDICATION GIVEN. PT ENCOUARGED TO CALL FOR HELP WHEN GETTING IN AND OUT OF BED AND NEEDED. CALL LIGHT WITH IN REACH. WILL CONTINUE TO MONITOR
[2019-07-30 06:57] VITALS: BP 120/82
[2019-07-30 07:20] LABS: HEMATOCRIT 31.2 % (36.0-48.0); HEMOGLOBIN 9.7 g/dL (12-16); MCHC 31.1 g/dL (31.0-37.0); MCV 83.6 fL (80.0-100.0); RBC 3.73 10x6/uL (4.00-5.40); RDW 15.2 % (11.5-14.5); WBC 5.1 10x3/uL (4.8-10.8)
--- NOTE | 2019-07-30 07:30 | NUR ---
AWAKE AND ALERT. ORIENTED X3. NO C/O AT THIS TIME. LUNGS ARE CLEAR BILATERALLY, NO COUGH NOTED. SKIN IS INTACT WITHOUT REDNESS ESCEPT INCISION TO LEFT KNEE WHICH HAS A DRY INTACT DRESSING IN PLACE. IV TO RIGHT WRIST IS PATENT WITHOUT REDNESS AT INSERTION SITE. UP TO BSC WITH MIN ASSIST OF ONE AND RW. VOIDED 300CC CLEAR YELLOW URINE. SKIN CARE PER STAFF. DENIES NEEDS.
--- NOTE | 2019-07-30 08:08 | OP ---
PATIENT NAME: IKER JOYA MEDICAL RECORD: [id number] :54 LOCATION:D.M3 D.1209 ADMISSION DATE:07/28/19 SURGEON: JORDAN BRISENO MD DATE OF OPERATION: 07/28/2019 PREOPERATIVE DIAGNOSIS: Painful left total knee arthroplasty. 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 PROCEDURES: 1. Excisional debridement of infected total knee arthroplasty to include joint resection portions of skin, subcutaneous tissue, portions of fat, fascia, muscle, and bone. 2. Placement of an articulated antibiotic spacer with a distal femoral component as well as an All-polyethylene tibial component. SURGEON: Jordan Briseno MD HOT TAR ROOFER HELPER: CARROLL Ricardo INTRAOPERATIVE COMPLICATIONS: None. SUMMARY OF PATHOLOGIC FINDINGS: Unfortunately, upon dissection of the patient's knee in keeping with the patient's nuclear medicine bone scan, there was evidence of the subcomponent infection. Two sets of cultures were taken, one of the fluid itself and one of the glycocalyx slime layer underneath the lateral femoral condyle. Later in the case, substantial amounts of slime layer were found in both the femoral canal as well as the tibial canal. Therefore, the patient was given a posterior stabilized femoral component cemented as well as an all-poly triathlon component cemented with gentamycin incorporated cement. OPERATIVE SUMMARY IN DETAIL: After obtaining the appropriate preoperative orthopedic surgery consent as well as anesthetic consultation, evaluation and clearance, the patient was brought to the operating room and placed on the operating table in a supine position. After general laryngeal mask airway was administered, tourniquet was placed on the proximal aspect of the left lower extremity. Left lower extremity was then prepped and draped in routine sterile fashion. The leg was elevated and exsanguinated, tourniquet inflated to 350 mmHg. At this point, the appropriate timeout was taken and agreed upon by all given the patient's unique identifiers. Midline incision was taken down for paramedian arthrotomy. The patient did have an effusion. Cultures were taken of this effusion to Gram stain, aerobic and anaerobic culture. The patella was swept laterally and attention was turned to the components of the knee itself. Given the overall inflammatory portions of the knee, I felt like it was reasonable to check the stability of the distal femur. The polyethylene was removed. Distal femur then was very easily taken off with again nonbonding seen in the lateral femoral condyle. Minimal amount of bone loss was experienced at the medial femoral condyle. At this point, the tibia was likewise removed, although it was more and more fixed. It was removed with very little bone loss using sagittal saw and flexible osteotomes. A combination of reverse curettage of the Solares revision set as well as bottle brush were utilized to remove what appeared to be glycocalyx slime layer in both the distal femur and the proximal tibia. At this point, curettage was also used to remove all slime layers about the end of the femur as well as in the entire joint cavity itself. Substantial curettage and pulsatile lavage was undertaken. At this point, the appropriate OPERATIVE REPORT [id number] IKER JOYA measurements were taken and a size 4 posterior stabilized cruciate component was put into place and then a size 4 all poly component was cemented in place likewise. The knee was taken out in full extension and the cement was allowed to harden. Having completed this, further irrigation was then followed by closure with 2-0 Ethibond, #1 Vicryl, 2-0 Vicryl, and skin daniel. Sterile dressings were applied. The tourniquet was deflated. The patient was awakened and taken to recovery room in stable condition. All final needle and sponge counts were correct. TRANSINT:[id number] Voice Confirmation ID: [id number] DOCUMENT ID: [id number] JORDAN BRISENO MD at 0808 CC: [id number] DICTATION DATE: 07/28/192021 INTEGRATION ENGINEER: 07/29/19 0203 [facility] [address] [place] [address]
[2019-07-30 08:49] VITALS: BP 145/75
--- NOTE | 2019-07-30 10:00 | NUR ---
ATE ALL OF BREAKFAST SHE WANTED. TOOK AM MEDS WITHOUT DIFFICULTY. GIVEN SUPPOSITORIES PER ORDERS. WILL MONITOR.
--- NOTE | 2019-07-30 11:00 | NUR ---
UP TO BSC. VOIDED WITHOUT DIFFICULTY, CLEAR YELLOW URINE. NO STOOL AT THIS TIME.
--- NOTE | 2019-07-30 12:30 | NUR ---
UP IN CHAIR AT BEDSIDE PER PT. LOUANN NEEDS. LUNCH SERVED IN ROOM.
--- NOTE | 2019-07-30 14:00 | NUR ---
UP TO BSC AGAIN. STILL NO BM. WILL CONTINUE TO MONITOR.
[2019-07-30 16:00] VITALS: BP 143/80
--- NOTE | 2019-07-30 16:01 | NUR ---
OT NOTE: PT COMPLETED FACE/HAND HYGIENE WITH SETUP. [phone] THANK YOU, VILMA VALDEZ
--- NOTE | 2019-07-30 17:30 | NUR ---
REFUSED SUPPER TRAY. DENIES NEEDS. GIVEN FLEETS ENEMA PER PATIENT REQUEST. WILL MONITOR.
--- NOTE | 2019-07-30 19:26 | NUR ---
VERY SMALL RESULTS FROM ENEMA. NO CHANGES NOTED. DENIES NEEDS.
[2019-07-30 20:00] VITALS: BP 127/85
--- NOTE | 2019-07-30 20:00 | NUR ---
ALERT RESTING IN BED, REQUESTING PAIN MED, GIVEN ORDERED, SEE SHIFT ASSESSMENT, CALL LIGHT IN REACH
[2019-07-31] VITALS: BP 135/80
[2019-07-31 04:00] VITALS: BP 133/72
--- NOTE | 2019-07-31 07:30 | NUR ---
AWAKE AND ALERT. ORIENTED X3. NO C/O AT THIS TIME. LUNGS ARE CLEAR BILATERALLY, NO COUGH NOTED. ENCOURAGED TO USE IS WA. SKIN IS INTACT WITHOUT REDNESS EXCEPT INCISION TO RIGHT KNEE WHICH HAS A DRY INTACT DRESSING IN PLACE. IV TO RIGHT WRIST IS PATENT WITHOUT REDNESS AT INSERTION SITE. DENIES NEEDS.
[2019-07-31 07:36] VITALS: BP 113/60
--- NOTE | 2019-07-31 08:20 | NUR ---
REQUESTED AND GIVEN 500MG TYLENOL PO FOR C/O HEADACHE. WILL MONITOR. ATE ALL OF BREAKFAST SHE WANTED. GIVEN PRUNE JUICE AND COFFEE TO SEE IS WE CAN GET HER BOWELS TO MOVE.
--- NOTE | 2019-07-31 10:53 | NUR ---
WORKING WITH PT IN ROOM. DENIES NEEDS.
--- NOTE | 2019-07-31 12:17 | NUR ---
OT NOTE: PT REPORTED NOT FEELING WELL TODAY. ABLE TO PERFORM BED MOB WITHOUT ASSIST. ABLE TO TRANSFER WITH USE OF WALKER AND CGA. ABLE TO PERFORM SIMPLE GROOMING TASKS WITH SET UP; REPORTED THAT SHE DID NOT WANT ANY BREAKFAST THIS AM. SINGH ROBERTS, OTR/L [phone]
[2019-07-31 13:03] VITALS: Ht 157.5 cm; Wt 95.7 kg
--- NOTE | 2019-07-31 14:00 | NUR ---
HAD LARGE AMOUNT OF LOOSE SEMI FORMED STOOL. PERICARE PER SELF.
--- NOTE | 2019-07-31 15:39 | NUR ---
OT NOTE: PT COMPLETED SUPINE TO SIT WITH SBA. PT COMPLETED BED TO BSC TSF WITH CGA. PT COMPLETED TOILETING AND HYGIENE TASKS WITH SETUP. [phone] THANK YOU,VILMA VALDEZ
[2019-07-31 15:56] VITALS: BP 119/71
--- NOTE | 2019-07-31 18:03 | NUR ---
ATE ABOUT HALF OF DINNER SALAD. DENIES NEEDS. NO CHANGES NOTED.
[2019-07-31 20:00] VITALS: BP 93/53
--- NOTE | 2019-07-31 20:00 | NUR ---
ALERT SITTIN UP IN BED DENIES PAIN OR NEEDS AT THIS TIME, SEE SHIFT ASSESSMENT, DRESSING INTACT TO L KNEE, CALL LIGHT IN REACH
[2019-08-01 04:00] VITALS: BP 105/62
[2019-08-01 08:00] VITALS: BP 110/57
--- NOTE | 2019-08-01 08:30 | NUR ---
PT RESTING IN BED TALKING ON PHONE. RESP EVEN AND UNLABORED. REPORTS PAIN 4/10 AT THIS TIME. IV TO RIGHT WRIST WITH NS @ 10ML/HR INFUSING VIA PUMP, SITE WITHOUT REDNESS OR EDEMA. DRESSING C/D/I TO LEFT KNEE. DENIES FURTHER NEEDS AT THIS TIME. CL WITHIN REACH. ENCOURGED TO CALL WITH NEEDS. CONTINUE POC
[2019-08-01 11:50] VITALS: BP 110/64
--- NOTE | 2019-08-01 13:53 | NUR ---
OT NOTE: PT DOING WELL; BED MOB WITH SPV; TRANSFERS WITH WALKER AND CGA/SBA; TOILETING WITH USE OF BS COMMODE WITH SBA. TOLERATING UP IN CHAIR FOR GREATER THAN 3 HRS AT A TIME. SINGH ROBERTS, OTR/L [phone]
--- NOTE | 2019-08-01 14:03 | NUR ---
Rehab Prescreening Consult recieved and the chart has been reviewed. She is [facility] managed Medicare and will require a preauth. All information will be sent to [facility] for their review. Kaylie Ramos RN Clinical Liaison, Rehab
[2019-08-01 15:00] VITALS: BP 102/61
--- NOTE | 2019-08-01 15:30 | NUR ---
MADE CONTACT WITH SHAHIDA WITH VASCULAR ACCESS. INFORMED HER OF NEED FOR PICC LINE PLACEMENT FOR PT FOR IV ANTIBIOTIC THERAPY POST D/C. SHAHIDA STATES SHE WILL COME AND SEE ABOUT PLACEMENT.
--- NOTE | 2019-08-01 16:25 | NUR ---
OT NOTE: PT COMPLETED SUPINE TO SIT WITH SPV. PT COMPLETED SIT TO STAND WITH CGA. PT COMPLETED BED TO CHAIR TSF WITH CGA. PT COMPLETED FACE HYGIENE WITH SETUP. [phone] THANK YOU,VLIMA VALDEZ
--- NOTE | 2019-08-01 16:30 | MORECARE ---
CASE MANAGEMENT DISCHARGE SUMMARY PATIENT: NORMA JOYA UNIT: [id number] ADM DATE: 07/28/19 AGE: 68 : 52 SEX: F ROOM/BED: D.1209 AUTHOR: MARYSE,DOC PHYSICIAN: REFERRING PHYSICIAN: JORDAN BRISENO MD DATE OF SERVICE: 08/01/19 Discharge Plan Patient Name: NORMA JOYA Facility: [facility]:[place] : 1950 Planned Disposition: Inpatient Rehab Facility Anticipated Discharge Date: Discharge Date: Expected LOS: 0 Initial Reviewer: [email or web address] Initial Review Date: 07/28/2019 Generated: 08/01/19 5:29 pm DCP- Discharge Planning Updated by [email or web address]: Sadia Valdovinos on 07/29/19 2:[address] CM met with patient to discuss initial discharge planning. Patient is in agreement to proceed with the assessment. Patient reports that she lives at home independently with her family. Patient is alert/oriented. Stairs/steps: Ramp. PCP: Dr. Cece Love APRN. Pharmacy: [address] Patient states she has been able to obtain all of her prescribed medications. HHS: [facility]. DME: Walker, BSC, CPM, Shower Chair. Patient gives permission to speak with family members. Emergency contact: Linda Mccarthy (dtr) [phone], Fili Joya (spouse) [phone]. 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 CM discussed the availability of HH, Rehab, SNF, OP Therapy, DME services. Patient states she plans to go into [facility]. Patient feels safe returning to previous environment. Patient denies hospitalization within the past 30 days. Patient denies the use of community resources ASSISTANT STORE LEADER. Transportation at time of discharge: Fili or Linda. CM will follow ad assist PRN. DCPIA - Discharge Planning Initial Assessment Updated by [email or web address]: Sadia Valdovinos on 08/01/19 4:29 pm * Is the patient Alert and Oriented? Yes * PCP LORETO [address] * Pharmacy [facility] * Preadmission Environment Home with Family * ADLs Independent * Equipment Bedside Commode Rolling Walker Shower Chair * Other Equipment CPM * List name and contact numbers for known caregivers / representatives who currently or will assist patient after discharge: Linda Mccarthy (dtr) [phone] Fili Joya (spouse) [phone] * Verbal permission to speak to the caregivers and representatives has been obtained from the patient. N/A * Community resources currently utilized None * Please name any agencies selected above. [facility] (past) Request [facility] at [place] * Additional services required to return to the preadmission environment? Yes * Can the patient safely return to the preadmission environment? No * Has this patient been hospitalized within the prior 30 days at any hospital? No Coverage Notice Reviewer: [email or web address] Dominick Valdovinos Notice Issued Date-Time: 08/01/2019 16:17 Notice Type: Patient Choice Letter Notice Delivered To: Patient Relationship to Patient: Self Undergraduate Advisor Name: Katie Joya Delivery Method: HAND - Hand Delivered Loly Days: Prior Verbal Notification: Recipient Understood Notice: Yes Recipient Signature: Yes Med Rec Note Co-signed by Attending: Coverage Notice Comment: Patient Choice signed/provided for [facility]. Original to chart. Reviewer: [email or web address] Dominick Valdovinos Notice Issued Date-Time: 08/01/2019 16:17 Notice Type: IM Discharge Notice Notice Delivered To: Patient Relationship to Patient: Self Undergraduate Advisor Name: Norma Joya Delivery Method: HAND - Hand Delivered Loly Days: Prior Verbal Notification: Recipient Understood Notice: Yes Recipient Signature: Yes Med Rec Note Co-signed by Attending: Coverage Notice Comment: Patient signed DC IMM Last DP export: 07/29/19 4:03 p Patient Name: NORMA JOYA Page [id number] at 1630 All edits/amendments must be made on the electronic document DICTATION DATE: 08/01/19 1630 ELECTRONICS ENGINEERING TECHNICIAN: AFTAB 08/01/19 1630 RPT#: [id number] DC DATE: STATUS: ADM IN [facility] [address] [place] [address] END OF REPORT
--- NOTE | 2019-08-01 16:51 | MORECARE ---
CASE MANAGEMENT DISCHARGE SUMMARY PATIENT: NORMA JOYA UNIT: [id number] ADM DATE: 07/28/19 AGE: 68 : 52 SEX: F ROOM/BED: D.1209 AUTHOR: MARYSE,DOC PHYSICIAN: REFERRING PHYSICIAN: JORDAN BRISENO MD DATE OF SERVICE: 08/01/19 Discharge Plan Patient Name: NORMA JOYA Facility: [facility]:[place] : 1950 Planned Disposition: Inpatient Rehab Facility Anticipated Discharge Date: Discharge Date: Expected LOS: 0 Initial Reviewer: [email or web address] Initial Review Date: 07/28/2019 Generated: 08/01/19 5:51 pm DCP- Discharge Planning Updated by [id number]: Sadia Valdovinos on 07/29/19 2:[address] CM met with patient to discuss initial discharge planning. Patient is in agreement to proceed with the assessment. Patient reports that she lives at home independently with her family. Patient is alert/oriented. Stairs/steps: Ramp. PCP: Dr. Cece Love APRN. Pharmacy: [address] Patient states she has been able to obtain all of her prescribed medications. HHS: [facility]. DME: Walker, BSC, CPM, Shower Chair. Patient gives permission to speak with family members. Emergency contact: Linda Mccarthy (dtr) [phone], Fili Joya (spouse) [phone]. 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 CM discussed the availability of HH, Rehab, SNF, OP Therapy, DME services. Patient states she plans to go into [facility]. Patient feels safe returning to previous environment. Patient denies hospitalization within the past 30 days. Patient denies the use of community resources CUSTOM STOCK MAKER. Transportation at time of discharge: Fili or Linda. CM will follow ad assist PRN. DCPIA - Discharge Planning Initial Assessment Updated by [id number]: Sadia Valdovinos on 08/01/19 4:29 pm * Is the patient Alert and Oriented? Yes * PCP LORETO [address] * [facility]acy [facility] * Preadmission Environment Home with Family * ADLs Independent * Equipment Bedside Commode Rolling Walker Shower Chair * Other Equipment CPM * List name and contact numbers for known caregivers / representatives who currently or will assist patient after discharge: Linda Mccarthy (dtr) [phone] Fili Joya (spouse) [phone] * Verbal permission to speak to the caregivers and representatives has been obtained from the patient. N/A * Community resources currently utilized None * Please name any agencies selected above. [facility] (past) Request [facility] [place] * Additional services required to return to the preadmission environment? Yes * Can the patient safely return to the preadmission environment? No * Has this patient been hospitalized within the prior 30 days at any hospital? No Coverage Notice Reviewer: [id number] Dominick Valdovinos Notice Issued Date-Time: 08/01/2019 16:17 Notice Type: Patient Choice Letter Notice Delivered To: Patient Relationship to Patient: Self Side Laster Staple Name: Katie Joya Delivery Method: HAND - Hand Delivered Loly Days: Prior Verbal Notification: Recipient Understood Notice: Yes Recipient Signature: Yes Med Rec Note Co-signed by Attending: Coverage Notice Comment: Patient Choice signed/provided for [facility]. Original to chart. Reviewer: [email or web address] Dominick Valdovinos Notice Issued Date-Time: 08/01/2019 16:17 Notice Type: IM Discharge Notice Notice Delivered To: Patient Relationship to Patient: Self Side Laster Staple Name: Norma Joya Delivery Method: HAND - Hand Delivered Loly Days: Prior Verbal Notification: Recipient Understood Notice: Yes Recipient Signature: Yes Med Rec Note Co-signed by Attending: Coverage Notice Comment: Patient signed DC IMM Last DP export: 08/01/19 3:30 p Patient Name: NORMA JOYA Page [phone] at 1651 All edits/amendments must be made on the electronic document DICTATION DATE: 08/01/191650 FINANCIAL RECRUITER: AFTAB 08/01/191650 RPT#: [id number] DC DATE: STATUS: ADM IN [facility] [address] [place] [address] END OF REPORT
--- NOTE | 2019-08-01 17:02 | NUR ---
PICC LINE PLACED BY SHAHIDA. SHAHIDA STATES PICC LINE OK FOR USE.
--- NOTE | 2019-08-01 19:45 | NUR ---
PT SITTING UP IN BED WITHOUT DISTRESS, AOX4. PT REQUESTING DRESSING TO LEFT KNEE BE CHANGED STATING THE PHYSICS TECHNICAL OFFICER TOLD HER TODAY IT SHOULD BE CHANGED. THIS NURSE CHANGED DRESSING IT DID HAVE DRIED OLD DRAINAGE. PT TOLERATED WELL. REQUESTED HS MEDS AND ZANAFLEX. REQUESTED AND GIVEN KASSANDRA CRACKERS AND MILK. DENIES OTHER NEEDS. CL IN REACH, WILL CTM
[2019-08-01 20:00] VITALS: BP 93/50
--- NOTE | 2019-08-01 21:30 | NUR ---
PT REQUESTING PAIN MED. BP 98/33 AFTER EARLIER ZANAFLEX. EXPLAINED TO PT BP TOO LOW AT THIS TIME. VERBALIZED UNDERSTANDING. REQUESTED AND GIVEN PUDDING. DENIES OTHER NEEDS. CL IN REACH, WILL CTM
--- NOTE | 2019-08-01 22:31 | NUR ---
BP 102/55 NOW, NORCO GIVEN FOR PAIN 10/19. WILL CTM
[2019-08-02] VITALS: BP 118/62
[2019-08-02 04:30] VITALS: BP 113/45
[2019-08-02 06:11] LABS: HEMATOCRIT 34.7 % (36.0-48.0); MCH 29.9 pg (26.0-34.0); MCHC 31.7 g/dL (31.0-37.0); MCV 94.3 fL (80.0-100.0); MEAN PLATELET VOLUME 10.3 fL (7.4-10.4); RBC 3.68 10x6/uL (4.00-5.40); RDW 13.5 % (11.5-14.5); WBC 8.8 10x3/uL (4.8-10.8)
[2019-08-02 06:15] LABS: PLATELET COUNT 213 10x3/uL (130-400)
[2019-08-02 07:20] LABS: ERYTHROCYTE SEDIMENTATION RATE 30 mm/hr (0-30)
[2019-08-02 08:20] VITALS: BP 112/56
--- NOTE | 2019-08-02 08:44 | NUR ---
PT SITTING UP IN BED EATING BREAKFAST. RESP EVEN AND UNLABORED. REPORTS PAIN 8/10 AT THIS TIME. PT REQUEST PAIN MEDICATION. PAIN MED TO BE ADMINISTERED PER MD ORDERS. PICC LINE INTACT TO LEFT UPPER ARM. SITE WITHOUT REDNESS OR EDEMA. DRESSING C/D/I TO LEFT LOWER EXTREMITY. PT DENIES FURTHER NEEDS AT THIS TIME. CL WITHIN REACH. ENCOURAGED TO CALL WITH NEEDS. CONTINUE POC
--- NOTE | 2019-08-02 09:40 | NUR ---
PT UP AMBULATING IN HALLWAY WITH PT. PT NAHOMI WELL
--- NOTE | 2019-08-02 11:33 | NUR ---
PT RESTING IN BED WATCHING TV. RESP EVEN AND UNLABORED. DENIES FURTHER NEEDS AT THIS TIME. CL WITHIN REACH. ENCOURAGED TO CALL WITH NEEDS.
[2019-08-02 11:54] VITALS: BP 95/55
--- NOTE | 2019-08-02 13:33 | NUR ---
PT RESTING IN BED. REQUEST PAIN MEDICATION PAIN IS AN 8/10 AT THIS TIME. PAIN MED ADMINISTERED PER MD ORDERS. DENIES FURTHER NEEDS AT THIS TIME. CL WITHIN REACH. ENCOURAGED TO CALL WITH NEEDS.
--- NOTE | 2019-08-02 15:15 | NUR ---
PT RESTING IN BED WATCHING TV. NO ACUTE DISTRESS NOTED AT THIS TIME. DENIES NEEDS AT THIS TIME. CL WITHIN REACH. ENCOURAGED TO CALL WITH NEEDS.
[2019-08-02 16:04] VITALS: BP 110/72
--- NOTE | 2019-08-02 17:36 | NUR ---
PT SELF AMBULATING FROM BED TO BEDSIDE COMMODE. DENIES NEEDS AT THIS TIME. STOOD BY TO ASSIST NEEDED. PT DENIES NEED FOR ASSISTANCE. CL WITHIN REACH. ENCOURAGED TO CALL WITH NEEDS.
[2019-08-02 19:48] VITALS: BP 135/78
--- NOTE | 2019-08-02 19:48 | NUR ---
PATIENT RESTING IN BED WITH NO S/S OF DISTRESS. VSS. BED IN LOWEST POSITION AND CALL LIGHT WITHIN REACH. ENCOURAGED THE PATIENT TO CALL IF SHE HAS NEEDS. WILL CONTINUE TO MONITOR.
--- NOTE | 2019-08-02 19:59 | NUR ---
ADMINISTERED MEDS PER ORDERS. PATIENT REQUESTED PAIN PILL FOR 7/10 PAIN. PATIENT DENIES OTHER NEEDS AT THIS TIME. BED IN LOWEST POSITION AND CALL LIGHT WITHIN REACH. ENCOURAGED THE PATIENT TO CALL IF SHE HAS NEEDS. WILL CONTINUE TO MONITOR.
[2019-08-03 00:11] VITALS: BP 149/77
[2019-08-03 05:46] VITALS: BP 132/75
[2019-08-03 07:35] VITALS: BP 138/48
--- NOTE | 2019-08-03 08:35 | NUR ---
PT ALERT X 4. BREATH SOUNDS CLEAR BILAT. PICC TO LEFT UPPER ARM, PATENT, DRESSING CDI. PT REPORTING PAIN OF 6/10, MEDICATED PER ORDERS, WILL MONITOR. DRESSING TO LEFT KNEE CDI. BED LOW, CALL LIGHT IN REACH. NO OTHER NEEDS AT THIS TIME.
[2019-08-03 11:02] VITALS: BP 135/73
[2019-08-03 19:45] VITALS: BP 133/61
--- NOTE | 2019-08-03 19:45 | NUR ---
PATIENT RESTING IN BED WITH NO S/S OF DISTRESS AND DENIES NEEDS AT THIS TIME. VSS. BED IN LOWEST POSITION AND CALL LIGHT WITHIN REACH. ENCOURAGED THE PATIENT TO CALL IF SHE HAS NEEDS. WILL CONTINUE TO MONITOR.
--- NOTE | 2019-08-03 20:48 | NUR ---
ADMINISTERED MEDS PER ORDERS. PATIENT DENIES OTHER NEEDS. ENCOURAGED PATIENT TO CALL IF SHE HAS NEEDS. WILL CONTINUE TO MONITOR.
[2019-08-04] VITALS (7 sets, daily range): BP systolic 103–151; BP diastolic 55–79
--- NOTE | 2019-08-04 07:30 | NUR ---
AWAKE AND ALERT. ORIENTED X3. NO C/O AT THIS TIME. REPORTS GOOD RELIEF WITH USE OF NORCO. LUNGS ARE CLEAR BILATERALLY, NO COUGH NOTED. SKIN IS INTACT WITHOUT REDNESS EXCEPT INCISION TO LEFT KNEE WHICH HAS A DRY INTACT DRESSING IN PLACE. PICC TO LEFT UPPER ARM IS PATENT WITHOUT REDNESS AT INSERTION SITE. DENIES NEEDS. BREAKFAST SERVED IN ROOM.
--- NOTE | 2019-08-04 09:14 | NUR ---
ATE ALL OF BREAKFAST. TOOK AM MEDS WITHOUT DIFFICULTY. DENIES NEEDS.
--- NOTE | 2019-08-04 10:58 | NUR ---
SITTING UP IN CHAIR AT BEDSIDE. DENIES NEEDS.
--- NOTE | 2019-08-04 13:22 | NUR ---
ATE ALL OF LUNCH WITHOUT DIFFICULTY. PICC FLUSHED WITH GOOD BLOOD RETURN X2. DISCUSSED HAVING BLOOD DRAWN IN AM VIA PICC. WILL MONITOR.
--- NOTE | 2019-08-04 15:00 | NUR ---
THINKING SHE MIGHT HAVE UTI. CALLED VERITO WALDRON APN. NEW ORDERS RECEIVED. URINE COLLECTED AND SENT TO LAB PER ORDERS.
--- NOTE | 2019-08-04 15:18 | NUR ---
REQUESTED AND GIVEN 50MG PHENERGAN PO FOR CONTINUED C/O NAUSEA. WILL MONITOR.
[2019-08-04 15:38] LABS: BILIRUBIN NEGATIVE (NEGATIVE); GLUCOSE NEGATIVE (NEGATIVE); KETONE NEGATIVE (NEGATIVE); NITRITE NEGATIVE (NEGATIVE); RED CELLS - URINE OCC /hpf (0-5); UROBILINOGEN NORMAL (NORMAL); WHITE CELLS - URINE 0-5 /hpf (NEGATIVE)
[2019-08-04 15:39] LABS: BACTERIA FEW /hpf (NEGATIVE)
--- NOTE | 2019-08-04 17:52 | NUR ---
ATE ALL OF SUPPER TRAY. REPORTS NAUSEA GONE AFTER PHENERGAN. DENIES NEEDS. NO CHANGES NOTED.
--- NOTE | 2019-08-04 19:18 | NUR ---
PATIENT RESTING IN BED WITH NO S/S OF DISTRESS. PATIENT DENIES NEEDS AT THIS TIME. BED IN LOWEST POSITION AND CALL LIGHT WITHIN REACH. ENCOURAGED THE PATIENT TO CALL IF SHE HAS NEEDS. WILL CONTINUE TO MONITOR.
--- NOTE | 2019-08-05 02:30 | NUR ---
PATIENT RESTING IN BED WITH EYES CLOSED AND NO S/S OF DISTRESS. BED IN LOWEST POSITION AND CALL LIGHT WITHIN REACH. WILL CONTINUE TO MONITOR.
[2019-08-05 04:13] VITALS: BP 119/66
--- NOTE | 2019-08-05 09:30 | NUR ---
PT ALERT X 4. BREATH SOUNDS DIMINISHED TO LOWER LOBES, ENCOURAGED USE OF INCENTIVE SPIROMETER 10 TIMES PER HOUR, PT STATES UNDERSTANDING. PICC LINE TO LEFT UPPER ARM, FLUSHED. TONY TO LEFT KNEE CDI. PT REPORTING PAIN OF 10/10, MEDICATED PER ORDERS, WILL CONTINUE TO MONITOR. PT SITTING UP IN CHAIR. STATES PAIN TOO BAD TO WALK WITH PHYSICAL THERAPY AT THIS TIME. BED LOW, CALL LIGHT IN REACH. NO OTHER NEEDS AT THIS TIME.
[2019-08-05 09:42] VITALS: BP 114/63
[2019-08-05 13:38] VITALS: BP 102/63
--- NOTE | 2019-08-05 14:21 | NUR ---
Nutrition Follow-up: PO intake much improved. C/o some nausea without vomiting this AM. Diet: Regular PO intake: 80-100% No new wt; last wt: 211# (07/30) Last BM: 08/04 Labs reviewed Meds noted: Phenergan, Colace -Encourage PO intake and honor food preferences. -Monitor wt. -RD following.
--- NOTE | 2019-08-05 16:31 | NUR ---
Recieved a call from Venita with [employer]. This patient has been denied for the ARU. If the physician disagrees and would like to do a peer to peer it can be done by calling [phone] before 11:00AM 08/07/19. Discussed with the CM Sadia Ramos RN Clinical liaison, Rehab
[2019-08-05 16:50] VITALS: BP 103/44
--- NOTE | 2019-08-05 18:09 | MORECARE ---
CASE MANAGEMENT DISCHARGE SUMMARY PATIENT: NORMA JOYA UNIT: [id number] ADM DATE: 07/28/19 AGE: 68 : 52 SEX: F ROOM/BED: D.1209 AUTHOR: MARYSE,DOC PHYSICIAN: REFERRING PHYSICIAN: JORDAN BRISENO MD DATE OF SERVICE: 08/05/19 Discharge Plan Patient Name: NORMA JOYA Facility: [facility]:[place] : 1950 Planned Disposition: Inpatient Rehab Facility Anticipated Discharge Date: Discharge Date: Expected LOS: 0 Initial Reviewer: [id number] Initial Review Date: 07/28/2019 Generated: 08/05/19 7:09 pm Comments DCP- Discharge Planning Updated by [email or web address]: Sadia Valdovinos on 08/05/19 5:[address] DC Plan: Patient chose [facility] for PT/OT/IV Antibiotic infusion. Patient choice for IV Antibiotics is [facility]. 4: 35 pm CM was notified of denial by [employer] for [facility]. DCP- Discharge Planning Updated by [id number]: Sadia Valdovinos on 07/29/19 2:[address] CM met with patient to discuss initial discharge planning. Patient is in agreement to proceed with the assessment. Patient reports that she lives at home independently with her family. Patient is alert/oriented. Stairs/steps: Ramp. PCP: Dr. Cece Love APRN. Pharmacy: [facility]. Patient states she has been able to obtain all of her prescribed medications. [facility]: [facility]. DME: Walker, BSC, CPM, Shower Chair. Patient gives permission to speak with family members. Emergency contact: Linda Mccarthy (dtr) [phone], Fili Joya (spouse) [phone]. 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 CM discussed the availability of HH, Rehab, SNF, OP Therapy, DME services. Patient states she plans to go into [facility]. Patient feels safe returning to previous environment. Patient denies hospitalization within the past 30 days. 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 Transportation at time of discharge: Fili or Linda. CM will follow ad assist PRN. DCPIA - Discharge Planning Initial Assessment Updated by [id number]: Sadia Valdovinos on 08/01/19 4:29 pm * Is the patient Alert and Oriented? Yes * PCP LORETO [address] * Pharmacy [facility] * Preadmission Environment Home with Family * ADLs Independent * Equipment Bedside Commode Rolling Walker Shower Chair * Other Equipment CPM * List name and contact numbers for known caregivers / representatives who currently or will assist patient after discharge: Linda Mccarthy (dtr) [phone] Fili Joya (spouse) [phone] * Verbal permission to speak to the caregivers and representatives has been obtained from the patient. N/A * Community resources currently utilized None * Please name any agencies selected above. [facility] (past) Request [facility] at [place] * Additional services required to return to the preadmission environment? Yes * Can the patient safely return to the preadmission environment? No * Has this patient been hospitalized within the prior 30 days at any hospital? No Coverage Notice Reviewer: [id number] Dominick Valdovinos Notice Issued Date-Time: 08/01/2019 16:17 Notice Type: Patient Choice Letter Notice Delivered To: Patient Relationship to Patient: Self Fuel Efficient Automobile Designer Name: Katie Joya Delivery Method: HAND - Hand Delivered Loly Days: Prior Verbal Notification: Recipient Understood Notice: Yes Recipient Signature: Yes Med Rec Note Co-signed by Attending: Coverage Notice Comment: Patient Choice signed/provided for [facility]. Original to chart. Reviewer: [id number] Dominick Valdovinos Notice Issued Date-Time: 08/01/2019 16:17 Notice Type: IM Discharge Notice Notice Delivered To: Patient Relationship to Patient: Self Fuel Efficient Automobile Designer Name: Norma Joya Delivery Method: HAND - Hand Delivered Loly Days: Prior Verbal Notification: Recipient Understood Notice: Yes Recipient Signature: Yes Med Rec Note Co-signed by Attending: Coverage Notice Comment: Patient signed DC IMM Last DP export: 08/01/19 3:51 p Patient Name: NORMA JOYA Page [id number] at 1809 All edits/amendments must be made on the electronic document DICTATION DATE: 08/05/191808 FIELD HOCKEY COACH: AFTAB 08/05/191808 RPT#: [id number] DC DATE: STATUS: ADM IN [facility] [address] [place] [address] END OF REPORT
--- NOTE | 2019-08-05 18:16 | MORECARE ---
CASE MANAGEMENT DISCHARGE SUMMARY PATIENT: NORMA JOYA UNIT: [id number] ADM DATE: 07/28/19 AGE: 68 : 52 SEX: F ROOM/BED: D.1209 AUTHOR: MARYSE,DOC PHYSICIAN: REFERRING PHYSICIAN: JORDAN BRISENO MD DATE OF SERVICE: 08/05/19 Discharge Plan Patient Name: NORMA JOYA Facility: [facility]:[place] : 1950 Planned Disposition: Inpatient Rehab Facility Anticipated Discharge Date: Discharge Date: Expected LOS: 0 Initial Reviewer: [id number] Initial Review Date: 07/28/2019 Generated: 08/05/19 7:16 pm Comments DCP- Discharge Planning Updated by [email or web address]: Sadia Valdovinos on 08/05/19 5:[address] DC Plan: Patient chose [facility] for PT/OT/IV Antibiotic infusion. Patient choice for IV Antibiotics is [facility]. Faxed order and information to [facility] 4: 35 pm CM was notified of denial by [employer] for [facility]. DCP- Discharge Planning Updated by [id number]: Sadia Valdovinos on 07/29/19 2:[address] CM met with patient to discuss initial discharge planning. Patient is in agreement to proceed with the assessment. Patient reports that she lives at home independently with her family. Patient is alert/oriented. Stairs/steps: Ramp. PCP: Dr. Cece Love APRN. Pharmacy: [facility]. Patient states she has been able to obtain all of her prescribed medications. [facility]: [facility]. DME: Walker, BSC, CPM, Shower Chair. Patient gives permission to speak with family members. Emergency contact: Linda Mccarthy (dtr) [phone], Fili Joya (spouse) [phone]. 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 CM discussed the availability of HH, Rehab, SNF, OP Therapy, DME services. Patient states she plans to go into [facility]. Patient feels safe returning to previous environment. Patient denies hospitalization within the past 30 days. Patient denies the use of community resources [employer]. Transportation at time of discharge: Fili or Linda. CM will follow ad assist PRN. DCPIA - Discharge Planning Initial Assessment Updated by [id number]: Sadia Valdovinos on 08/01/19 4:29 pm * Is the patient Alert and Oriented? Yes * PCP LORETO Miller Dr. * [facility]acy [facility] * Preadmission Environment Home with Family * ADLs Independent * Equipment Bedside Commode Rolling Walker Shower Chair * Other Equipment CPM * List name and contact numbers for known caregivers / representatives who currently or will assist patient after discharge: Linda Mccarthy (dtr) [phone] Fili Joya (spouse) [phone] * Verbal permission to speak to the caregivers and representatives has been obtained from the patient. N/A * Community resources currently utilized None * Please name any agencies selected above. [facility] (past) Request [facility] at [place] * Additional services required to return to the preadmission environment? Yes * Can the patient safely return to the preadmission environment? No * Has this patient been hospitalized within the prior 30 days at any hospital? No External Providers External Provider: [facility] Next Contact Date: Service Request Date: Service Type: Resolution: Reviewer: Comments: Coverage Notice Reviewer: [id number] Dominick Valdovinos Notice Issued Date-Time: 08/01/2019 16:17 Notice Type: Patient Choice Letter Notice Delivered To: Patient Relationship to Patient: Self Education Program Specialist Name: Katie Joya Delivery Method: HAND - Hand Delivered Loly Days: Prior Verbal Notification: Recipient Understood Notice: Yes Recipient Signature: Yes Med Rec Note Co-signed by Attending: Coverage Notice Comment: Patient Choice signed/provided for [facility]. Original to chart. Reviewer: [email or web address] Dominick Valdovinos Notice Issued Date-Time: 08/01/2019 16:17 Notice Type: IM Discharge Notice Notice Delivered To: Patient Relationship to Patient: Self Education Program Specialist Name: Norma Joya Delivery Method: HAND - Hand Delivered Loly Days: Prior Verbal Notification: Recipient Understood Notice: Yes Recipient Signature: Yes Med Rec Note Co-signed by Attending: Coverage Notice Comment: Patient signed DC IMM Last DP export: 08/05/19 5:09 p Patient Name: NORMA JOYA Page 53239 at 1816 All edits/amendments must be made on the electronic document DICTATION DATE: 08/05/191815 ACCOUNTING MANAGER CPA: AFTAB 08/05/191815 RPT#: [id number] DC DATE: STATUS: ADM IN [facility] [address] [place] [address] END OF REPORT
--- NOTE | 2019-08-05 18:25 | MORECARE ---
CASE MANAGEMENT DISCHARGE SUMMARY PATIENT: NORMA JOYA UNIT: [id number] ADM DATE: 07/28/19 AGE: 68 : 52 SEX: F ROOM/BED: D.1209 AUTHOR: MARYSE,DOC PHYSICIAN: REFERRING PHYSICIAN: JORDAN BRISENO MD DATE OF SERVICE: 08/05/19 Discharge Plan Patient Name: NORMA JOYA Facility: [facility]:[place] : 1950 Planned Disposition: Inpatient Rehab Facility Anticipated Discharge Date: Discharge Date: Expected LOS: 0 Initial Reviewer: [id number] Initial Review Date: 07/28/2019 Generated: 08/05/19 7:24 pm Comments DCP- Discharge Planning Updated by [id number]: Sadia Valdovinos on 08/05/19 5:[address] DC Plan: Patient chose [facility] for PT/OT/IV Antibiotic infusion. Patient choice for IV Antibiotics is [facility]. Faxed order and information to [facility], spoke with Melissa, provided required information. O/C is to return call. 4: 35 pm CM was notified of denial by [facility] for [facility] Re[facility]. DCP- Discharge Planning Updated by [id number]: Sadia Valdovinos on 07/29/19 2:[address] CM met with patient to discuss initial discharge planning. Patient is in agreement to proceed with the assessment. Patient reports that she lives at home independently with her family. Patient is alert/oriented. Stairs/steps: Ramp. PCP: Dr. Cece Love APRN. Pharmacy: [facility]. Patient states she has been able to obtain all of her prescribed medications. [facility]: [facility]. DME: Walker, BSC, CPM, Shower Chair. Patient gives permission to speak with family members. Emergency contact: Linda Mccarthy (dtr) [phone], Fili Joya (spouse) [phone]. Patient is Independent with all ADL's, medication management [employer]AT [employer]. CM discussed the availability of HH, Rehab, SNF, OP Therapy, DME services. Patient states she plans to go into [facility]LE[facility] Rehab. Patient feels safe returning to previous environment. Patient denies hospitalization within the past 30 days. Patient denies the use of community resources [employer]AT [employer]. Transportation at time of discharge: Fili or Linda. CM will follow ad assist PRN. DCPIA - Discharge Planning Initial Assessment Updated by [email or web address]: Sadia Valdovinos on 08/01/19 4:29 pm * Is the patient Alert and Oriented? Yes * PCP LORETO Miller Dr. * Pharmacy [facility] * Preadmission Environment Home with Family * ADLs Independent * Equipment Bedside Commode Rolling Walker Shower Chair * Other Equipment CPM * List name and contact numbers for known caregivers / representatives who currently or will assist patient after discharge: Linda Mccarthy (dtr) [phone] Fili Joya (spouse) [phone] * Verbal permission to speak to the caregivers and representatives has been obtained from the patient. N/A * Community resources currently utilized None * Please name any agencies selected above. [facility] (past) Request [facility] Re[facility] at [place] * Additional services required to return to the preadmission environment? Yes * Can the patient safely return to the preadmission environment? No * Has this patient been hospitalized within the prior 30 days at any hospital? No Coverage Notice Reviewer: [id number] Dominick Valdovinos Notice Issued Date-Time: 08/01/2019 16:17 Notice Type: Patient Choice Letter Notice Delivered To: Patient Relationship to Patient: Self Field Service Analyst Name: Katie Joya Delivery Method: HAND - Hand Delivered Loly Days: Prior Verbal Notification: Recipient Understood Notice: Yes Recipient Signature: Yes Med Rec Note Co-signed by Attending: Coverage Notice Comment: Patient Choice signed/provided for [facility] Re[facility]. Original to chart. Reviewer: [id number] Dominick Valdovinos Notice Issued Date-Time: 08/01/2019 16:17 Notice Type: IM Discharge Notice Notice Delivered To: Patient Relationship to Patient: Self Field Service Analyst Name: Norma Joya Delivery Method: HAND - Hand Delivered Loly Days: Prior Verbal Notification: Recipient Understood Notice: Yes Recipient Signature: Yes Med Rec Note Co-signed by Attending: Coverage Notice Comment: Patient signed DC IMM Reviewer: [id number] Dominick Valdovinos Notice Issued Date-Time: 08/05/2019 18:15 Notice Type: Patient Choice Letter Notice Delivered To: Patient Relationship to Patient: Self Field Service Analyst Name: Katie Joya Delivery Method: HAND - Hand Delivered Loly Days: Prior Verbal Notification: Recipient Understood Notice: Yes Recipient Signature: Yes Med Rec Note Co-signed by Attending: Coverage Notice Comment: Patient choice for [facility]. Original to chart. Reviewer: [id number] Dominick Valdovinos Notice Issued Date-Time: 08/05/2019 18:15 Notice Type: Patient Choice Letter Notice Delivered To: Patient Relationship to Patient: Self Field Service Analyst Name: Katie Joya Delivery Method: HAND - Hand Delivered Loly Days: Prior Verbal Notification: Recipient Understood Notice: Yes Recipient Signature: Yes Med Rec Note Co-signed by Attending: Coverage Notice Comment: [facility] Last DP export: 08/05/19 5:16 p Patient Name: NORMA JOYA Page [id number] at 1825 All edits/amendments must be made on the electronic document DICTATION DATE: 08/05/191823 LANE ATTENDANT: AFTAB 08/05/191823 RPT#: [id number] DC DATE: STATUS: ADM IN [facility] [address] [place] [address] END OF REPORT
--- NOTE | 2019-08-05 18:32 | MORECARE ---
CASE MANAGEMENT DISCHARGE SUMMARY PATIENT: NORMA JOYA UNIT: [id number] ADM DATE: 07/28/19 AGE: 68 : 52 SEX: F ROOM/BED: D.1209 AUTHOR: MARYSE,DOC PHYSICIAN: REFERRING PHYSICIAN: JORDAN BRISENO MD DATE OF SERVICE: 08/05/19 Discharge Plan Patient Name: NORMA JOYA Facility: [facility]:[place] : 1950 Planned Disposition: Inpatient Rehab Facility Anticipated Discharge Date: Discharge Date: Expected LOS: 0 Initial Reviewer: [email or web address] Initial Review Date: 07/28/2019 Generated: 08/05/19 7:32 pm Comments DCP- Discharge Planning Updated by [id number]: Sadia Valdovinos on 08/05/19 5:[address] DC Plan: Patient chose [facility] for PT/OT/IV Antibiotic infusion. Patient choice for IV Antibiotics is [facility]. Faxed order and information to [facility], spoke with Melissa, provided required information. Fletcher O/Donna returned call and will start working on home antibiotics 08/05. 4: 35 pm CM was notified of denial by [employer] for [facility] Rehab. DCP- Discharge Planning Updated by [id number]: Sadia Valdovinos on 07/29/19 2:[address] CM met with patient to discuss initial discharge planning. Patient is in agreement to proceed with the assessment. Patient reports that she lives at home independently with her family. Patient is alert/oriented. Stairs/steps: Ramp. PCP: Dr. Cece Love APRN. Pharmacy: [facility]. Patient states she has been able to obtain all of her prescribed medications. HHS: [facility]. DME: Walker, BSC, CPM, Shower Chair. Patient gives permission to speak with family members. Emergency contact: Linda Mccarthy (dtr) [phone], Fili Joya (spouse) [phone]. Patient is Independent with all ADL's, medication management [employer]IT [employer]. CM discussed the availability of HH, Rehab, SNF, OP Therapy, DME services. Patient states she plans to go into [facility]ACTIC[facility] DERMATOLOGIST Rehab. Patient feels safe returning to previous environment. Patient denies hospitalization within the past 30 days. Patient denies the use of community resources [employer]OFIT [employer]. Transportation at time of discharge: Fili or Linda. CM will follow ad assist PRN. DCPIA - Discharge Planning Initial Assessment Updated by [id number]: Sadia Valdovinos on 08/01/19 4:29 pm * Is the patient Alert and Oriented? Yes * PCP LORETO Miller Dr. * Pharmacy [facility] * Preadmission Environment Home with Family * ADLs Independent * Equipment Bedside Commode Rolling Walker Shower Chair * Other Equipment CPM * List name and contact numbers for known caregivers / representatives who currently or will assist patient after discharge: Linda Mccarthy (dtr) [phone] Fili Joya (spouse) [phone] * Verbal permission to speak to the caregivers and representatives has been obtained from the patient. N/A * Community resources currently utilized None * Please name any agencies selected above. [facility] (past) Request [facility]ERMATOLOG[facility] Rehab at [place] * Additional services required to return to the preadmission environment? Yes * Can the patient safely return to the preadmission environment? No * Has this patient been hospitalized within the prior 30 days at any hospital? No Coverage Notice Reviewer: [id number] Dominick Valdovinos Notice Issued Date-Time: 08/01/2019 16:17 Notice Type: Patient Choice Letter Notice Delivered To: Patient Relationship to Patient: Self Pcb Design Engineer Name: Katie Joya Delivery Method: HAND - Hand Delivered Loly Days: Prior Verbal Notification: Recipient Understood Notice: Yes Recipient Signature: Yes Med Rec Note Co-signed by Attending: Coverage Notice Comment: Patient Choice signed/provided for [facility]ERMATOLOGIST Rehab. Original to chart. Reviewer: [id number] Dominick Valdovinos Notice Issued Date-Time: 08/01/2019 16:17 Notice Type: IM Discharge Notice Notice Delivered To: Patient Relationship to Patient: Self Pcb Design Engineer Name: Norma Joya Delivery Method: HAND - Hand Delivered Loly Days: Prior Verbal Notification: Recipient Understood Notice: Yes Recipient Signature: Yes Med Rec Note Co-signed by Attending: Coverage Notice Comment: Patient signed DC IMM Reviewer: [id number] Dominick Valdovinos Notice Issued Date-Time: 08/05/2019 18:15 Notice Type: Patient Choice Letter Notice Delivered To: Patient Relationship to Patient: Self Pcb Design Engineer Name: Katie Timbs Delivery Method: HAND - Hand Delivered Loly Days: Prior Verbal Notification: Recipient Understood Notice: Yes Recipient Signature: Yes Med Rec Note Co-signed by Attending: Coverage Notice Comment: Patient choice for [facility]. Original to chart. Reviewer: [id number] Dominick Valdovinos Notice Issued Date-Time: 08/05/2019 18:15 Notice Type: Patient Choice Letter Notice Delivered To: Patient Relationship to Patient: Self Pcb Design Engineer Name: Katie Joya Delivery Method: HAND - Hand Delivered Loly Days: Prior Verbal Notification: Recipient Understood Notice: Yes Recipient Signature: Yes Med Rec Note Co-signed by Attending: Coverage Notice Comment: [facility] Last DP export: 08/05/19 5:25 p Patient Name: NORMA JOYA Page [id number] at 1832 All edits/amendments must be made on the electronic document DICTATION DATE: 08/05/191831 FOLLOW UP REP: AFTAB 08/05/191831 RPT#: [id number] DC DATE: STATUS: ADM IN [facility] [address] [place] [address] END OF REPORT
[2019-08-05 20:20] VITALS: BP 116/68
[2019-08-06] VITALS: BP 110/60
--- NOTE | 2019-08-06 00:54 | NUR ---
ALERT SITTING UP IN BED DENIES PAIN OR NEEDS AT THIS TIME, SEE SHIFT ASSESSMENT, CALL LIGHT IN REACH
[2019-08-06 04:00] VITALS: BP 135/69
--- NOTE | 2019-08-06 07:30 | NUR ---
PATIENT AWAKE AND ALERT RESTING IN BED, DENIES ANY NEEDS AT THIS TIME, C/L AND FLUIDS IN REACH.
[2019-08-06 07:48] VITALS: BP 129/68
[2019-08-06] MEDS ORDERED: ZYVOX PREMIX600 MG IV (08:22)
[2019-08-06] MEDS ORDERED: HYDROCODON-ACE1 EA10 PO (08:24)
[2019-08-06] MEDS ORDERED: ELIQUIS2.5 MG PO (08:25)
[2019-08-06 09:14] LABS: HEMATOCRIT 30.2 % (36.0-48.0); HEMOGLOBIN 9.5 g/dL (12-16); MCH 25.7 pg (26.0-34.0); MCHC 31.5 g/dL (31.0-37.0); MCV 81.8 fL (80.0-100.0); MEAN PLATELET VOLUME 8.5 fL (7.4-10.4); PLATELET COUNT 181 10x3/uL (130-400); RBC 3.69 10x6/uL (4.00-5.40); RDW 14.7 % (11.5-14.5); WBC 5.1 10x3/uL (4.8-10.8)
[2019-08-06 09:36] LABS: ANION GAP 9.7 mmol/L (8-16); C-REACTIVE PROTEIN 4.5 mg/dL (0.0-0.9); CALCIUM 7.9 mg/dL (8.5-10.1); CARBON DIOXIDE 29.2 mmol/L (21.0-32.0); CREATININE - SERUM 1.1 mg/dL (0.6-1.3)
[2019-08-06 09:47] LABS: POTASSIUM - SERUM 2.9 mmol/L (3.5-5.1)
[2019-08-06 10:18] LABS: ERYTHROCYTE SEDIMENTATION RATE 35 mm/hr (0-30)
--- NOTE | 2019-08-06 11:50 | NUR ---
RESTING IN BED, AWAKE AND ALERT, DENIES ANY NEEDS AT THIS TIME, C/L AND FLUIDS IN REACH.
--- NOTE | 2019-08-06 12:27 | MORECARE ---
CASE MANAGEMENT DISCHARGE SUMMARY PATIENT: NORMA JOYA UNIT: [id number] ADM DATE: 07/28/19 AGE: 68 : 54 SEX: F ROOM/BED: D.1209 AUTHOR: MARYSE,DOC PHYSICIAN: REFERRING PHYSICIAN: JORDAN BRISENO MD DATE OF SERVICE: 08/06/19 Discharge Plan Patient Name: NORMA JOYA Facility: [facility]:[place] : 1950 Planned Disposition: Inpatient Rehab Facility Anticipated Discharge Date: Discharge Date: Expected LOS: 0 Initial Reviewer: [id number] Initial Review Date: 07/28/2019 Generated: 08/06/19 1:26 pm Comments DCP- Discharge Planning Updated by [id number]: Sadia Valdovinos on 08/06/19 11:[address] CM contacted [facility] to verify that they can accept patient with IV Antibiotics, spoke with Jaki and she will have to consult her foster care case manager to see if they can accept the patient before Sunday. CM contacted Vikki, With [facility] ([phone]), for cost to patient and when the drug would be available. Per Vikki, The drug would be billed through Medicare Part D and for 4 weeks, the patient's ycu-rn-drngld copay would be $1141.80 . Patient would be able to pay the medication cost out over a 9-12 month period at $96.00/month. Vikki is going to call the patient to verify that she is in agreement with this. Await CB from [facility] and [facility]. DCP- Discharge Planning Updated by [email or web address]: Sadia Valdovinos on 08/05/19 5:[address] DC Plan: Patient chose [facility] for PT/OT/IV Antibiotic infusion. Patient choice for IV Antibiotics is [facility]. Faxed order and information to [facility], spoke with Melissa, provided required information. Dash Bynum/Donna returned call and will start working on home antibiotics 08/05. 4: 35 pm CM was notified of denial by Joyc[facility] for [facility]. DCP- Discharge Planning Updated by [id number]: Sadia Valdovinos on 07/29/19 2:[address] CM met with patient to discuss initial discharge planning. Patient is in agreement to proceed with the assessment. Patient reports that she lives at home independently with her family. Patient is alert/oriented. Stairs/steps: Ramp. PCP: Dr. Cece Love APRN. Pharmacy: [address] Patient states she has been able to obtain all of her prescribed medications. HHS: [facility]. DME: Walker, BSC, CPM, Shower Chair. Patient gives permission to speak with family members. Emergency contact: Linda Mccarthy (dtr) [phone], Fili Joya (spouse) [phone]. 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 CM discussed the availability of HH, Rehab, SNF, OP Therapy, DME services. Patient states she plans to go into [facility] Re[facility]. Patient feels safe returning to previous environment. Patient denies hospitalization within the past 30 days. Patient denies the use of community resources WAFER SLICER. Transportation at time of discharge: Fili or Linda. CM will follow ad assist PRN. DCPIA - Discharge Planning Initial Assessment Updated by [email or web address]: Sadia Valdovinos on 08/01/19 4:29 pm * Is the patient Alert and Oriented? Yes * PCP LORETO [address] * Pharmacy [facility] * Preadmission Environment Home with Family * ADLs Independent * Equipment Bedside Commode Rolling Walker Shower Chair * Other Equipment CPM * List name and contact numbers for known caregivers / representatives who currently or will assist patient after discharge: Linda Mccarthy (dtr) [phone] Fili Joya (spouse) [phone] * Verbal permission to speak to the caregivers and representatives has been obtained from the patient. N/A * Community resources currently utilized None * Please name any agencies selected above. [facility] (past) Request [facility] Re[facility] at [place] * Additional services required to return to the preadmission environment? Yes * Can the patient safely return to the preadmission environment? No * Has this patient been hospitalized within the prior 30 days at any hospital? No Coverage Notice Reviewer: [id number] - Sadia Valdovinos Notice Issued Date-Time: 08/01/2019 16:17 Notice Type: Patient Choice Letter Notice Delivered To: Patient Relationship to Patient: Self Plasticator Name: Katie Joya Delivery Method: HAND - Hand Delivered Loly Days: Prior Verbal Notification: Recipient Understood Notice: Yes Recipient Signature: Yes Med Rec Note Co-signed by Attending: Coverage Notice Comment: Patient Choice signed/provided for [facility]. Original to chart. Reviewer: [id number] Valdovinos Notice Issued Date-Time: 08/01/2019 16:17 Notice Type: IM Discharge Notice Notice Delivered To: Patient Relationship to Patient: Self Plasticator Name: Norma Joya Delivery Method: HAND - Hand Delivered Loly Days: Prior Verbal Notification: Recipient Understood Notice: Yes Recipient Signature: Yes Med Rec Note Co-signed by Attending: Coverage Notice Comment: Patient signed DC IMM Reviewer: [id number] Valdovinos Notice Issued Date-Time: 08/05/2019 18:15 Notice Type: Patient Choice Letter Notice Delivered To: Patient Relationship to Patient: Self Plasticator Name: Katie Joya Delivery Method: HAND - Hand Delivered Loly Days: Prior Verbal Notification: Recipient Understood Notice: Yes Recipient Signature: Yes Med Rec Note Co-signed by Attending: Coverage Notice Comment: Patient choice for [facility]. Original to chart. Reviewer: [id number] Valdovinos Notice Issued Date-Time: 08/05/2019 18:15 Notice Type: Patient Choice Letter Notice Delivered To: Patient Relationship to Patient: Self Plasticator Name: Katie Joya Delivery Method: HAND - Hand Delivered Loly Days: Prior Verbal Notification: Recipient Understood Notice: Yes Recipient Signature: Yes Med Rec Note Co-signed by Attending: Coverage Notice Comment: [facility] Last DP export: 08/05/19 5:33 p Patient Name: NORMA JOYA Page [id number] at 1227 All edits/amendments must be made on the electronic document DICTATION DATE: 08/06/19 1226 BREAKER TENDER: AFTAB 08/06/19 1226 RPT#: [id number] DC DATE: STATUS: ADM IN [facility] [address] [place] [address] END OF REPORT
--- NOTE | 2019-08-06 12:40 | MORECARE ---
CASE MANAGEMENT DISCHARGE SUMMARY PATIENT: NORMA JOYA UNIT: [id number] ADM DATE: 07/28/19 AGE: 68 : 52 SEX: F ROOM/BED: D.1209 AUTHOR: MARYSE,DOC PHYSICIAN: REFERRING PHYSICIAN: JORDAN BRISENO MD DATE OF SERVICE: 08/06/19 Discharge Plan Patient Name: NORMA JOYA Facility: [facility]:[place] : 1950 Planned Disposition: Inpatient Rehab Facility Anticipated Discharge Date: Discharge Date: Expected LOS: 0 Initial Reviewer: [email or web address] Initial Review Date: 07/28/2019 Generated: 08/06/19 1:40 pm Comments DCP- Discharge Planning Updated by [email or web address]: Sadia Valdovinos on 08/06/19 11:[address] CM contacted [facility] to verify that they can accept patient with IV Antibiotics, spoke with Jaki and she will have to consult her technical program manager to see if they can accept the patient before Sunday. CM contacted Vikki, With [facility] ([phone]), for cost to patient and when the drug would be available. Per Vikki, The drug would be billed through Medicare Part D and for 4 weeks, the patient's sdn-gg-yeekrb copay would be $1141.80 . Patient would be able to pay the medication cost out over a 9-12 month period at $96.00/month. Vikki is going to call the patient to verify that she is in agreement with this. Await CB from [facility] and [facility]. CB from Vikki, with [facility] and patient is in agreement with the amount of the drug's cost. DCP- Discharge Planning Updated by [id number]: Sadia Valdovinos on 08/05/19 5:[address] DC Plan: Patient chose [facility] for PT/OT/IV Antibiotic infusion. Patient choice for IV Antibiotics is [facility]. Faxed order and information to [facility], spoke with Melissa, provided required information. Fletcher O/Donna returned call and will start working on home antibiotics 08/05. 4: 35 pm [facility]. DCP- Discharge Planning Updated by [id number]: Sadia Sotolroy on 07/29/19 2:[address] CM met with patient to discuss initial discharge planning. Patient is in agreement to proceed with the assessment. Patient reports that she lives at home independently with her family. Patient is alert/oriented. Stairs/steps: Ramp. PCP: Dr. Cece Love APRN. Pharmacy: [address] Patient states she has been able to obtain all of her prescribed medications. HHS: [facility]. DME: Walker, BSC, CPM, Shower Chair. Patient gives permission to speak with family members. Emergency contact: Linda Mccarthy (dtr) [phone], Fili Delilah (spouse) [phone]. Patient is Independent with all ADL's, medication management DELIVERY ARCHITECT. CM discussed the availability of HH, Rehab, SNF, OP Therapy, DME services. Patient states she plans to go into [facility]. Patient feels safe returning to previous environment. Patient denies hospitalization within the past 30 days. Patient denies the use of community resources DELIVERY ARCHITECT. Transportation at time of discharge: Fili or Linda. CM will follow ad assist PRN. DCPIA - Discharge Planning Initial Assessment Updated by [id number]: Sadia Sotolroy on 08/01/19 4:29 pm * Is the patient Alert and Oriented? Yes * PCP LORETO Miller Dr[address] * Pharmacy [facility] * Preadmission Environment Home with Family * ADLs Independent * Equipment Bedside Commode Rolling Walker Shower Chair * Other Equipment CPM * List name and contact numbers for known caregivers / representatives who currently or will assist patient after discharge: Linda Mccarthy (dtr) [phone] Fili Ricardodouglas (spouse) [phone] * Verbal permission to speak to the caregivers and representatives has been obtained from the patient. N/A * Community resources currently utilized None * Please name any agencies selected above. [facility] (past) Request [facility] Rehab at [place] * Additional services required to return to the preadmission environment? Yes * Can the patient safely return to the preadmission environment? No * Has this patient been hospitalized within the prior 30 days at any hospital? No Coverage Notice Reviewer: [id number] - Sadiaantonio Valdovinos Notice Issued Date-Time: 08/01/2019 16:17 Notice Type: IM Discharge Notice Notice Delivered To: Patient Relationship to Patient: Self Career Development Facilitator Name: Norma Joya Delivery Method: HAND - Hand Delivered Loly Days: Prior Verbal Notification: Recipient Understood Notice: Yes Recipient Signature: Yes Med Rec Note Co-signed by Attending: Coverage Notice Comment: Patient signed DC IMM Reviewer: [id number] Dominick Valdovinos Notice Issued Date-Time: 08/05/2019 18:15 Notice Type: Patient Choice Letter Notice Delivered To: Patient Relationship to Patient: Self Career Development Facilitator Name: Katie Joya Delivery Method: HAND - Hand Delivered Loly Days: Prior Verbal Notification: Recipient Understood Notice: Yes Recipient Signature: Yes Med Rec Note Co-signed by Attending: Coverage Notice Comment: [facility] Reviewer: [id number] Valdovinos Notice Issued Date-Time: 08/05/2019 18:15 Notice Type: Patient Choice Letter Notice Delivered To: Patient Relationship to Patient: Self Career Development Facilitator Name: Katie Joya Delivery Method: HAND - Hand Delivered Loly Days: Prior Verbal Notification: Recipient Understood Notice: Yes Recipient Signature: Yes Med Rec Note Co-signed by Attending: Coverage Notice Comment: Patient choice for [facility]. Original to chart. Reviewer: [id number] Dominick Valdovinos Notice Issued Date-Time: 08/01/2019 16:17 Notice Type: Patient Choice Letter Notice Delivered To: Patient Relationship to Patient: Self Career Development Facilitator Name: Katie Joya Delivery Method: HAND - Hand Delivered Loly Days: Prior Verbal Notification: Recipient Understood Notice: Yes Recipient Signature: Yes Med Rec Note Co-signed by Attending: Coverage Notice Comment: Patient Choice signed/provided for [facility] Re[facility]. Original to chart. Last DP export: 08/06/19 11:27 a Patient Name: NORMA JOYA Page [id number] at 1240 All edits/amendments must be made on the electronic document DICTATION DATE: 08/06/19 1240 PRESIDENT + PUBLISHER: AFTAB 08/06/19 1240 RPT#: [id number] DC DATE: STATUS: ADM IN [facility] [address] [place] [address] END OF REPORT
--- NOTE | 2019-08-06 13:01 | MORECARE ---
CASE MANAGEMENT DISCHARGE SUMMARY PATIENT: NORMA JOYA UNIT: [id number] ADM DATE: 07/28/19 AGE: 68 : 52 SEX: F ROOM/BED: D.1209 AUTHOR: MARYSE,DOC PHYSICIAN: REFERRING PHYSICIAN: JORDAN BRISENO MD DATE OF SERVICE: 08/06/19 Discharge Plan Patient Name: NORMA JOYA Facility: [facility]:[place] : 1950 Planned Disposition: Inpatient Rehab Facility Anticipated Discharge Date: Discharge Date: Expected LOS: 0 Initial Reviewer: [id number] Initial Review Date: 07/28/2019 Generated: 08/06/19 2:01 pm Comments DCP- Discharge Planning Updated by [id number]: Sadia Valdovinos on 08/06/19 11:[address] CM contacted [facility] to verify that they can accept patient with IV Antibiotics, spoke with Jaki and she will have to consult her risk management manager to see if they can accept the patient before Sunday. CM contacted Vikki, With [facility] ([phone]), for cost to patient and when the drug would be available. Per Vikki, The drug would be billed through Medicare Part D and for 4 weeks, the patient's zmh-xb-gfrbup copay would be $1141.80 . Patient would be able to pay the medication cost out over a 9-12 month period at $96.00/month. Vikki is going to call the patient to verify that she is in agreement with this. Await CB from [facility] and [place]. CB from Vikki, with [place] and patient is in agreement with the amount of the drug's cost. [facility] cannot see patient until Sunday. Contacted [facility] [place] [facility] and they are not in network with [facility]. Contacted [facility], spoke with Amena and they are able to start the infusion 08/06 morning. DCP- Discharge Planning Updated by [id number]: Sadia Valdovinos on 08/05/19 5:[address] DC Plan: Patient chose [facility] for PT/OT/IV Antibiotic infusion. Patient choice for IV Antibiotics is [facility]. Faxed order and information to [facility], spoke with Melissa, provided required information. Fletcher O/C returned call and will start working on home antibiotics 08/05. 4: 35 pm CM was notified of denial by [facility] for [facility] Rehab. DCP- Discharge Planning Updated by [id number]: Sadia Valdovinos on 07/29/19 2:[address] CM met with patient to discuss initial discharge planning. Patient is in agreement to proceed with the assessment. Patient reports that she lives at home independently with her family. Patient is alert/oriented. Stairs/steps: Ramp. PCP: Dr. Cece Love APRN. Pharmacy: [address] Patient states she has been able to obtain all of her prescribed medications. HHS: [facility]. DME: Chidi, REGULO, CPM, Shower Chair. Patient gives permission to speak with family members. Emergency contact: Linda Mccarthy (dtr) [phone], Fili Joya (spouse) [phone]. 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 CM discussed the availability of HH, Rehab, SNF, OP Therapy, DME services. Patient states she plans to go into [facility] Rehab. Patient feels safe returning to previous environment. Patient denies hospitalization within the past 30 days. Patient denies the use of community resources PNEUMATIC TOOL OPERATOR. Transportation at time of discharge: Fili or Linda. CM will follow ad assist PRN. DCPIA - Discharge Planning Initial Assessment Updated by [email or web address]: Sadia Valdovinos on 08/01/19 4:29 pm * Is the patient Alert and Oriented? Yes * PCP LORETO Miller Dr[address] * Pharmacy [facility] * Preadmission Environment Home with Family * ADLs Independent * Equipment Bedside Commode Rolling Walker Shower Chair * Other Equipment CPM * List name and contact numbers for known caregivers / representatives who currently or will assist patient after discharge: Linda Mccarthy (dtr) [phone] Fili Ricardodouglas (spouse) [phone] * Verbal permission to speak to the caregivers and representatives has been obtained from the patient. N/A * Community resources currently utilized None * Please name any agencies selected above. [facility] (past) Request [facility] Re[facility] at [place] * Additional services required to return to the preadmission environment? Yes * Can the patient safely return to the preadmission environment? No * Has this patient been hospitalized within the prior 30 days at any hospital? No External Providers External Provider: [facility] Next Contact Date: Service Request Date: Service Type: Resolution: Reviewer: Comments: Coverage Notice Reviewer: [id number] Valdovinos Notice Issued Date-Time: 08/05/2019 18:15 Notice Type: Patient Choice Letter Notice Delivered To: Patient Relationship to Patient: Self Sewage Treatment Plant Operator Name: Katie Joya Delivery Method: HAND - Hand Delivered Loly Days: Prior Verbal Notification: Recipient Understood Notice: Yes Recipient Signature: Yes Med Rec Note Co-signed by Attending: Coverage Notice Comment: [facility] Reviewer: [id number] Valdovinos Notice Issued Date-Time: 08/05/2019 18:15 Notice Type: Patient Choice Letter Notice Delivered To: Patient Relationship to Patient: Self Sewage Treatment Plant Operator Name: Katie Joya Delivery Method: HAND - Hand Delivered Loly Days: Prior Verbal Notification: Recipient Understood Notice: Yes Recipient Signature: Yes Med Rec Note Co-signed by Attending: Coverage Notice Comment: Patient choice for [facility]. Original to chart. Reviewer: [id number] Valdovinos Notice Issued Date-Time: 08/01/2019 16:17 Notice Type: Patient Choice Letter Notice Delivered To: Patient Relationship to Patient: Self Sewage Treatment Plant Operator Name: Katie Joya Delivery Method: HAND - Hand Delivered Loly Days: Prior Verbal Notification: Recipient Understood Notice: Yes Recipient Signature: Yes Med Rec Note Co-signed by Attending: Coverage Notice Comment: Patient Choice signed/provided for [facility] Re[facility]. Original to chart. Reviewer: [id number] Valdovinos Notice Issued Date-Time: 08/01/2019 16:17 Notice Type: IM Discharge Notice Notice Delivered To: Patient Relationship to Patient: Self Sewage Treatment Plant Operator Name: Norma Joya Delivery Method: HAND - Hand Delivered Loly Days: Prior Verbal Notification: Recipient Understood Notice: Yes Recipient Signature: Yes Med Rec Note Co-signed by Attending: Coverage Notice Comment: Patient signed DC IMM Last DP export: 08/06/19 11:40 a Patient Name: NORMA JOYA Page [id number] at 1301 All edits/amendments must be made on the electronic document DICTATION DATE: 08/06/19 130 BUSINESS SERVICES SPECIALIST SALES: DM 08/06/19 1301 RPT#: [id number] DC DATE: STATUS: ADM IN [facility] [address] [place] [address] END OF REPORT
--- NOTE | 2019-08-06 13:09 | MORECARE ---
CASE MANAGEMENT DISCHARGE SUMMARY PATIENT: NORMA JOYA UNIT: [id number] ADM DATE: 07/28/19 AGE: 68 : 54 SEX: F ROOM/BED: D.1209 AUTHOR: MARYSE,DOC PHYSICIAN: REFERRING PHYSICIAN: JORDAN BRISENO MD DATE OF SERVICE: 08/06/19 Discharge Plan Patient Name: NORMA JOYA Facility: [facility]:[place] : 1950 Planned Disposition: Inpatient Rehab Facility Anticipated Discharge Date: Discharge Date: Expected LOS: 0 Initial Reviewer: [id number] Initial Review Date: 07/28/2019 Generated: 08/06/19 2:08 pm Comments DCP- Discharge Planning Updated by [email or web address]: Sadia Valdvoinos on 08/06/19 12:[address] CM contacted [facility] to verify that they can accept patient with IV Antibiotics, spoke with Jaki and she will have to consult her manager program to see if they can accept the patient before Sunday. CM contacted Vikki, With [facility] ([phone]), for cost to patient and when the drug would be available. Per Vikki, The drug would be billed through Medicare Part D and for 4 weeks, the patient's fsw-uq-gxigns copay would be $1141.80 . Patient would be able to pay the medication cost out over a 9-12 month period at $96.00/month. Vikki is going to call the patient to verify that she is in agreement with this. Await CB from [facility] and [facility]. CB from Vikki, with [facility] and patient is in agreement with the amount of the drug's cost. [facility] cannot see patient until Sunday. Contacted [facility] and they are not in network with [facility]. Contacted [facility], spoke with Amena and they are able to start the infusion 08/06 morning. Patient is in agreement to [facility]. Patient will be required to receive her evening dose before she is DC'd tonight. DCP- Discharge Planning Updated by [id number]: Sadia Valdovinos on 08/05/19 5:[address] DC Plan: Patient chose [facility] for PT/OT/IV Antibiotic infusion. Patient choice for IV Antibiotics is [facility]. Faxed order and information to [facility], spoke with Melissa, provided required information. Fletcher O/C returned call and will start working on home antibiotics 08/05. 4: 35 pm CM was notified of denial by [facility] for [facility]. DCP- Discharge Planning Updated by [email or web address]: Sadia Valdovinos on 07/29/19 2:[address] CM met with patient to discuss initial discharge planning. Patient is in agreement to proceed with the assessment. Patient reports that she lives at home independently with her family. Patient is alert/oriented. Stairs/steps: Ramp. PCP: Dr. Cece Love APRN. Pharmacy: [address] Patient states she has been able to obtain all of her prescribed medications. HHS: [facility]. DME: Walker, BSC, CPM, Shower Chair. Patient gives permission to speak with family members. Emergency contact: Linda Mccarthy (dtr) [phone], Fili Joya (spouse) [phone]. Patient is Independent with all ADL's, medication management RN TRANSPLANT. CM discussed the availability of HH, Rehab, SNF, OP Therapy, DME services. Patient states she plans to go into [facility]. Patient feels safe returning to previous environment. Patient denies hospitalization within the past 30 days. Patient denies the use of community resources RN TRANSPLANT. Transportation at time of discharge: Fili or Linda. CM will follow ad assist PRN. DCPIA - Discharge Planning Initial Assessment Updated by [email or web address]: Sadia Valdovinos on 08/01/19 4:29 pm * Is the patient Alert and Oriented? Yes * PCP LORETO [address] * Pharmacy [facility] * Preadmission Environment Home with Family * ADLs Independent * Equipment Bedside Commode Rolling Walker Shower Chair * Other Equipment CPM * List name and contact numbers for known caregivers / representatives who currently or will assist patient after discharge: Linda Mccarthy (dtr) [phone] Fili Ricardodouglas (spouse) [phone] * Verbal permission to speak to the caregivers and representatives has been obtained from the patient. N/A * Community resources currently utilized None * Please name any agencies selected above. [facility] (past) Request [facility] at [place] * Additional services required to return to the preadmission environment? Yes * Can the patient safely return to the preadmission environment? No * Has this patient been hospitalized within the prior 30 days at any hospital? No Coverage Notice Reviewer: CECILIA Valdovinos Notice Issued Date-Time: 08/05/2019 18:15 Notice Type: Patient Choice Letter Notice Delivered To: Patient Relationship to Patient: Self School Secretary Name: Katie Timbs Delivery Method: HAND - Hand Delivered Loly Days: Prior Verbal Notification: Recipient Understood Notice: Yes Recipient Signature: Yes Med Rec Note Co-signed by Attending: Coverage Notice Comment: [facility] Reviewer: [id number] Valdovinos Notice Issued Date-Time: 08/05/2019 18:15 Notice Type: Patient Choice Letter Notice Delivered To: Patient Relationship to Patient: Self School Secretary Name: Katie Ricardobs Delivery Method: HAND - Hand Delivered Loly Days: Prior Verbal Notification: Recipient Understood Notice: Yes Recipient Signature: Yes Med Rec Note Co-signed by Attending: Coverage Notice Comment: Patient choice for [facility]. Original to chart. Reviewer: [id number] Valdovinos Notice Issued Date-Time: 08/01/2019 16:17 Notice Type: Patient Choice Letter Notice Delivered To: Patient Relationship to Patient: Self School Secretary Name: Katie Joya Delivery Method: HAND - Hand Delivered Loly Days: Prior Verbal Notification: Recipient Understood Notice: Yes Recipient Signature: Yes Med Rec Note Co-signed by Attending: Coverage Notice Comment: Patient Choice signed/provided for [facility]. Original to chart. Reviewer: [id number] Valdovinos Notice Issued Date-Time: 08/06/2019 13:02 Notice Type: IM Discharge Notice Notice Delivered To: Patient Relationship to Patient: Self School Secretary Name: Norma Joya Delivery Method: HAND - Hand Delivered Loly Days: Prior Verbal Notification: Recipient Understood Notice: Yes Recipient Signature: Yes Med Rec Note Co-signed by Attending: Coverage Notice Comment: [facility] Reviewer: [id number] Valdovinos Notice Issued Date-Time: 08/01/2019 16:17 Notice Type: IM Discharge Notice Notice Delivered To: Patient Relationship to Patient: Self School Secretary Name: Norma Timbs Delivery Method: HAND - Hand Delivered Loly Days: Prior Verbal Notification: Recipient Understood Notice: Yes Recipient Signature: Yes Med Rec Note Co-signed by Attending: Coverage Notice Comment: Patient signed DC IMM Last DP export: 08/06/19 12:01 p Patient Name: NORMA JOYA Page 08204 at 1309 All edits/amendments must be made on the electronic document DICTATION DATE: 08/06/19 130 EVENTS SOLUTIONS CONSULTANT: AFTAB 08/06/19 1308 RPT#: [id number] DC DATE: STATUS: ADM IN [facility] [address] [place] [address] END OF REPORT
--- NOTE | 2019-08-06 15:15 | MORECARE ---
CASE MANAGEMENT DISCHARGE SUMMARY PATIENT: NORMA JOYA UNIT: [id number] ADM DATE: 07/28/19 AGE: 68 : 52 SEX: F ROOM/BED: D.1209 AUTHOR: MARYSE,DOC PHYSICIAN: REFERRING PHYSICIAN: JORDAN BRISENO MD DATE OF SERVICE: 08/06/19 Discharge Plan Patient Name: NORMA JOYA Facility: [facility]:[place] : 1950 Planned Disposition: Inpatient Rehab Facility Anticipated Discharge Date: Discharge Date: Expected LOS: 0 Initial Reviewer: [email or web address] Initial Review Date: 07/28/2019 Generated: 08/06/19 4:14 pm Comments DCP- Discharge Planning Updated by [id number]: Sadia Valdovinos on 08/06/19 2:[address] Per Vikki, with [facility], a nurse will be here before 8:00 pm today, to start the patient's first dose of IV Antibiotics. CM contacted [facility] to verify that they can accept patient with IV Antibiotics, spoke with Jaki and she will have to consult her express manager to see if they can accept the patient before Sunday. CM contacted Vikki, With [facility] ([phone]), for cost to patient and when the drug would be available. Per Vikki, The drug would be billed through Medicare Part D and for 4 weeks, the patient's qsq-vb-pwpezu copay would be $1141.80 . Patient would be able to pay the medication cost out over a 9-12 month period at $96.00/month. Vikki is going to call the patient to verify that she is in agreement with this. Await CB from [facility] and [facility]. CB from [facility], with [facility] and patient is in agreement with the amount of the drug's cost. [facility] cannot see patient until Sunday. Contacted [facility] and they are not in network with [facility]. Contacted [facility], spoke with Amena and they are able to start the infusion 08/06 morning. Patient is in agreement to [facility]. Patient will be required to receive her evening dose before she is DC'd tonight. DCP- Discharge Planning Updated by [id number]: Sadia Valdovinos on 08/05/19 5:[address] DC Plan: Patient chose [facility] for PT/OT/IV Antibiotic infusion. Patient choice for IV Antibiotics is [facility]. Faxed order and information to [facility], spoke with Melissa, provided required information. Fletcher O/C returned call and will start working on home antibiotics 08/05. 4: 35 pm CM was notified of denial by [facility] for [facility]. DCP- Discharge Planning Updated by [id number]: Sadia Sotolroy on 07/29/19 2:[address] CM met with patient to discuss initial discharge planning. Patient is in agreement to proceed with the assessment. Patient reports that she lives at home independently with her family. Patient is alert/oriented. Stairs/steps: Ramp. PCP: Markos Hoang APRN, Dr. Zhao. Pharmacy: [address] Patient states she has been able to obtain all of her prescribed medications. HHS: [facility]. DME: Chidi, BSDonna, CPM, Shower Chair. Patient gives permission to speak with family members. Emergency contact: Linda Mccarthy (dtr) [phone], Fili Joya (spouse) [phone]. Patient is Independent with all ADL's, medication management CONTENT DESIGNER. CM discussed the availability of HH, Rehab, SNF, OP Therapy, DME services. Patient states she plans to go into [facility]. Patient feels safe returning to previous environment. Patient denies hospitalization within the past 30 days. Patient denies the use of community resources CONTENT DESIGNER. Transportation at time of discharge: Fili or Linda. CM will follow ad assist PRN. DCPIA - Discharge Planning Initial Assessment Updated by [email or web address]: Sadia Aruna on 08/01/19 4:29 pm * Is the patient Alert and Oriented? Yes * PCP LORETO Miller Dr[address] * Pharmacy [facility] * Preadmission Environment Home with Family * ADLs Independent * Equipment Bedside Commode Rolling Walker Shower Chair * Other Equipment CPM * List name and contact numbers for known caregivers / representatives who currently or will assist patient after discharge: Linda Mccarthy (dtr) [phone] Fili Joya (spouse) [phone] * Verbal permission to speak to the caregivers and representatives has been obtained from the patient. N/A * Community resources currently utilized None * Please name any agencies selected above. [facility] (past) Request [facility] [place] * Additional services required to return to the preadmission environment? Yes * Can the patient safely return to the preadmission environment? No * Has this patient been hospitalized within the prior 30 days at any hospital? No Coverage Notice Reviewer: [id number] Valdovinos Notice Issued Date-Time: 08/01/2019 16:17 Notice Type: Patient Choice Letter Notice Delivered To: Patient Relationship to Patient: Self Customer Service Engineer Name: Katie Joya Delivery Method: HAND - Hand Delivered Loly Days: Prior Verbal Notification: Recipient Understood Notice: Yes Recipient Signature: Yes Med Rec Note Co-signed by Attending: Coverage Notice Comment: Patient Choice signed/provided for [facility]. Original to chart. Reviewer: [id number] Valdovinos Notice Issued Date-Time: 08/01/2019 16:17 Notice Type: IM Discharge Notice Notice Delivered To: Patient Relationship to Patient: Self Customer Service Engineer Name: Norma Joya Delivery Method: HAND - Hand Delivered Loly Days: Prior Verbal Notification: Recipient Understood Notice: Yes Recipient Signature: Yes Med Rec Note Co-signed by Attending: Coverage Notice Comment: Patient signed DC IMM Reviewer: [id number] Valdovinos Notice Issued Date-Time: 08/05/2019 18:15 Notice Type: Patient Choice Letter Notice Delivered To: Patient Relationship to Patient: Self Customer Service Engineer Name: Katie Joya Delivery Method: HAND - Hand Delivered Loly Days: Prior Verbal Notification: Recipient Understood Notice: Yes Recipient Signature: Yes Med Rec Note Co-signed by Attending: Coverage Notice Comment: Patient choice for [facility]. Original to chart. Reviewer: [id number] Valdovinos Notice Issued Date-Time: 08/05/2019 18:15 Notice Type: Patient Choice Letter Notice Delivered To: Patient Relationship to Patient: Self Customer Service Engineer Name: Katie Joya Delivery Method: HAND - Hand Delivered Loly Days: Prior Verbal Notification: Recipient Understood Notice: Yes Recipient Signature: Yes Med Rec Note Co-signed by Attending: Coverage Notice Comment: [facility] Reviewer: [id number] Valdovinos Notice Issued Date-Time: 08/06/2019 13:02 Notice Type: IM Discharge Notice Notice Delivered To: Patient Relationship to Patient: Self Customer Service Engineer Name: Norma Joya Delivery Method: HAND - Hand Delivered Loly Days: Prior Verbal Notification: Recipient Understood Notice: Yes Recipient Signature: Yes Med Rec Note Co-signed by Attending: Coverage Notice Comment: DC IMM Last DP export: 08/06/19 12:09 p Patient Name: NORMA JOYA Page 60440 at 1515 All edits/amendments must be made on the electronic document DICTATION DATE: 08/06/191513 SUBSTATION ENGINEER: AFTAB 08/06/191513 RPT#: [id number] DC DATE: STATUS: ADM IN [facility] [address] [place] [address] END OF REPORT
--- NOTE | 2019-08-06 16:27 | MORECARE ---
CASE MANAGEMENT DISCHARGE SUMMARY PATIENT: NORMA JOYA UNIT: [id number] ADM DATE: 07/28/19 AGE: 68 : 52 SEX: F ROOM/BED: D.1209 AUTHOR: MARYSE,DOC PHYSICIAN: REFERRING PHYSICIAN: JORDAN BRISENO MD DATE OF SERVICE: 08/06/19 Discharge Plan Patient Name: NORMA JOYA Facility: [facility]:[place] : 1950 Planned Disposition: Inpatient Rehab Facility Anticipated Discharge Date: 08/06/19 Discharge Date: Expected LOS: 9 Initial Reviewer: [email or web address] Initial Review Date: 07/28/2019 Generated: 08/06/19 5:26 pm Comments DCP- Discharge Planning Updated by [email or web address]: Sadia Valdovinos on 08/06/19 2:[address] Per Vikki, with [facility], a nurse will be here before 8:00 pm today, to start the patient's first dose of IV Antibiotics. CM contacted [facility] to verify that they can accept patient with IV Antibiotics, spoke with Jkai and she will have to consult her redevelopment manager to see if they can accept the patient before Sunday. CM contacted Vikki, With [facility] ([phone]), for cost to patient and when the drug would be available. Per Vikki, The drug would be billed through Medicare Part D and for 4 weeks, the patient's qyy-wh-nwevkb copay would be $1141.80 . Patient would be able to pay the medication cost out over a 9-12 month period at $96.00/month. Vikki is going to call the patient to verify that she is in agreement with this. Await CB from [facility] and [facility]. CB from [facility], with [facility] and patient is in agreement with the amount of the drug's cost. [facility] cannot see patient until Sunday. Contacted [facility] and they are not in network with [facility]. Contacted [facility], spoke with Amena and they are able to start the infusion 08/06 morning. Patient is in agreement to [facility]. Patient will be required to receive her evening dose before she is DC'd tonight. DCP- Discharge Planning Updated by [id number]: Sadia Valdovinos on 08/05/19 5:[address] DC Plan: Patient chose [facility] for PT/OT/IV Antibiotic infusion. Patient choice for IV Antibiotics is [facility]. Faxed order and information to [facility], spoke with IrinaLuceroBrandondagoberto, provided required information. Fletcher O/C returned call and will start working on home antibiotics 08/05. 4: 35 pm CM was notified of denial by [facility] for [facility]. DCP- Discharge Planning Updated by [email or web address]: Sadia Sotolroy on 07/29/19 2:[address] CM met with patient to discuss initial discharge planning. Patient is in agreement to proceed with the assessment. Patient reports that she lives at home independently with her family. Patient is alert/oriented. Stairs/steps: Ramp. PCP: Markos Hoang APRN, Dr. Zhao. Pharmacy: [address] Patient states she has been able to obtain all of her prescribed medications. HHS: [facility]. DME: REGULO Murillo, CPM, Shower Chair. Patient gives permission to speak with family members. Emergency contact: Linda Mccarthy (dtr) [phone], Fili Joya (spouse) [phone]. Patient is Independent with all ADL's, medication management VARNISH REMOVER. CM discussed the availability of HH, Rehab, SNF, OP Therapy, DME services. Patient states she plans to go into [facility]. Patient feels safe returning to previous environment. Patient denies hospitalization within the past 30 days. Patient denies the use of community resources VARNISH REMOVER. Transportation at time of discharge: Fili or Linda. CM will follow ad assist PRN. DCPIA - Discharge Planning Initial Assessment Updated by [id number]: Sadia Sotolroy on 08/01/19 4:29 pm * Is the patient Alert and Oriented? Yes * PCP LORETO Miller Dr[address] * Pharmacy [facility] * Preadmission Environment Home with Family * ADLs Independent * Equipment Bedside Commode Rolling Walker Shower Chair * Other Equipment CPM * List name and contact numbers for known caregivers / representatives who currently or will assist patient after discharge: Linda Mccarthy (dtr) [phone] Fili Joya (spouse) [phone] * Verbal permission to speak to the caregivers and representatives has been obtained from the patient. N/A * Community resources currently utilized None * Please name any agencies selected above. [facility] (past) Request [facility] [place] * Additional services required to return to the preadmission environment? Yes * Can the patient safely return to the preadmission environment? No * Has this patient been hospitalized within the prior 30 days at any hospital? No Coverage Notice Reviewer: [id number] Valdovinos Notice Issued Date-Time: 08/01/2019 16:17 Notice Type: Patient Choice Letter Notice Delivered To: Patient Relationship to Patient: Self Clean Up Supervisor Name: Katie Timbs Delivery Method: HAND - Hand Delivered Loly Days: Prior Verbal Notification: Recipient Understood Notice: Yes Recipient Signature: Yes Med Rec Note Co-signed by Attending: Coverage Notice Comment: Patient Choice signed/provided for [facility]. Original to chart. Reviewer: [id number] Valdovinos Notice Issued Date-Time: 08/01/2019 16:17 Notice Type: IM Discharge Notice Notice Delivered To: Patient Relationship to Patient: Self Clean Up Supervisor Name: Normahay Joya Delivery Method: HAND - Hand Delivered Loly Days: Prior Verbal Notification: Recipient Understood Notice: Yes Recipient Signature: Yes Med Rec Note Co-signed by Attending: Coverage Notice Comment: Patient signed DC IMM Reviewer: [id number] Valdovinos Notice Issued Date-Time: 08/05/2019 18:15 Notice Type: Patient Choice Letter Notice Delivered To: Patient Relationship to Patient: Self Clean Up Supervisor Name: Katie Timbs Delivery Method: HAND - Hand Delivered Loly Days: Prior Verbal Notification: Recipient Understood Notice: Yes Recipient Signature: Yes Med Rec Note Co-signed by Attending: Coverage Notice Comment: Patient choice for [facility]. Original to chart. Reviewer: [id number] Valdovinos Notice Issued Date-Time: 08/05/2019 18:15 Notice Type: Patient Choice Letter Notice Delivered To: Patient Relationship to Patient: Self Clean Up Supervisor Name: Katie Timbs Delivery Method: HAND - Hand Delivered Loly Days: Prior Verbal Notification: Recipient Understood Notice: Yes Recipient Signature: Yes Med Rec Note Co-signed by Attending: Coverage Notice Comment: [facility] Reviewer: [id number] Valdovinos Notice Issued Date-Time: 08/06/2019 13:02 Notice Type: IM Discharge Notice Notice Delivered To: Patient Relationship to Patient: Self Clean Up Supervisor Name: Norma Joya Delivery Method: HAND - Hand Delivered Loly Days: Prior Verbal Notification: Recipient Understood Notice: Yes Recipient Signature: Yes Med Rec Note Co-signed by Attending: Coverage Notice Comment: DC IMM Last DP export: 08/06/19 2:15 p Patient Name: NORMA JOYA Page [id number] at 1627 All edits/amendments must be made on the electronic document DICTATION DATE: 08/06/191626 CELL ROOM SUPERVISOR: AFTAB 08/06/191626 RPT#: [id number] DC DATE: STATUS: ADM IN [facility] [address] [place] [address] END OF REPORT
[2019-08-06 16:29] VITALS: BP 133/83
--- NOTE | 2019-08-06 16:33 | NUR ---
RESTING IN BED WATCHING TV, DENIES ANY NEEDS AT THIS TIME, C/L AND FLUIDS IN REACH.
[2019-08-06 20:00] VITALS: BP 130/54
--- NOTE | 2019-08-06 22:36 | NUR ---
ANITABIOTIC FINISHED PICC LINE FLUSHED AND DRESSING CHANGED TO PICC LINE AND LEFT KNEE, DISCHARGE INSTRUCTIONS GIVEN, DC'D HOME VIA AND PRIVATE AUTO
--- NOTE | 2019-08-07 09:06 | MORECARE ---
CASE MANAGEMENT DISCHARGE SUMMARY PATIENT: NORMA JOYA UNIT: [id number] ADM DATE: 07/28/19 AGE: 68 : 52 SEX: F ROOM/BED: D.1209 AUTHOR: MARYSE,DOC PHYSICIAN: REFERRING PHYSICIAN: JORDAN BRISENO MD DATE OF SERVICE: 08/07/19 Discharge Plan Patient Name: NORMA JOYA Facility: [facility]:[place] : 1950 Planned Disposition: Inpatient Rehab Facility Anticipated Discharge Date: 08/06/19 Discharge Date: 08/06/2019 Expected LOS: 9 Initial Reviewer: [id number] Initial Review Date: 07/28/2019 Generated: 08/07/19 10:06 am Comments DCP- Discharge Planning Updated by [id number]: Sadia Valdovinos on 08/06/19 2:[address] Per Vikki, with [facility], a nurse will be here before 8:00 pm today, to start the patient's first dose of IV Antibiotics. CM contacted [facility] to verify that they can accept patient with IV Antibiotics, spoke with Jaki and she will have to consult her used car manager to see if they can accept the patient before Sunday. CM contacted Vikki, With [facility] ([phone]), for cost to patient and when the drug would be available. Per Vikki, The drug would be billed through Medicare Part D and for 4 weeks, the patient's [id number] copay would be $1141.80 . Patient would be able to pay the medication cost out over a 9-12 month period at $96.00/month. Vikki is going to call the patient to verify that she is in agreement with this. Await CB from [facility] and [facility]. CB from [facility], with [facility] and patient is in agreement with the amount of the drug's cost. [facility] cannot see patient until Sunday. Contacted [facility] and they are not in network with [facility]. Contacted [facility], spoke with Amena and they are able to start the infusion 08/06 morning. Patient is in agreement to [facility]. Patient will be required to receive her evening dose before she is DC'd tonight. DCP- Discharge Planning Updated by [id number]: Sadia Valdovinos on 08/05/19 5:[address] DC Plan: Patient chose [facility] for PT/OT/IV Antibiotic infusion. Patient choice for IV Antibiotics is [facility]. Faxed order and information to [facility], spoke with IrinaLuceroBrandondagoberto, provided required information. Fletcher O/C returned call and will start working on home antibiotics 08/05. 4: 35 pm CM was notified of denial by [facility] for [facility]. DCP- Discharge Planning Updated by [email or web address]: Sadia Valdovinos on 07/29/19 2:[address] CM met with patient to discuss initial discharge planning. Patient is in agreement to proceed with the assessment. Patient reports that she lives at home independently with her family. Patient is alert/oriented. Stairs/steps: Ramp. PCP: Markos Hoang APRN, Dr. Zhao. Pharmacy: [address] Patient states she has been able to obtain all of her prescribed medications. HHS: [facility]. DME: Walker, BSC, CPM, Shower Chair. Patient gives permission to speak with family members. Emergency contact: Linda Mccarthy (dtr) [phone], Fili Joya (spouse) [phone]. 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 CM discussed the availability of HH, Rehab, SNF, OP Therapy, DME services. Patient states she plans to go into [facility]. Patient feels safe returning to previous environment. Patient denies hospitalization within the past 30 days. Patient denies the use of community resources ASSEMBLY ROOM SUPERVISOR. Transportation at time of discharge: Fili or Linda. CM will follow ad assist PRN. DCPIA - Discharge Planning Initial Assessment Updated by [id number]: Sadia Sotolroy on 08/01/19 4:29 pm * Is the patient Alert and Oriented? Yes * PCP LORET[address] * Pharmacy [facility] * Preadmission Environment Home with Family * ADLs Independent * Equipment Bedside Commode Rolling Walker Shower Chair * Other Equipment CPM * List name and contact numbers for known caregivers / representatives who currently or will assist patient after discharge: Linda Mccarthy (dtr) [phone] Fili Joya (spouse) [phone] * Verbal permission to speak to the caregivers and representatives has been obtained from the patient. N/A * Community resources currently utilized None * Please name any agencies selected above. [facility] (past) Request [facility] at [place] * Additional services required to return to the preadmission environment? Yes * Can the patient safely return to the preadmission environment? No * Has this patient been hospitalized within the prior 30 days at any hospital? No Coverage Notice Reviewer: [id number] Valdovinos Notice Issued Date-Time: 08/01/2019 16:17 Notice Type: Patient Choice Letter Notice Delivered To: Patient Relationship to Patient: Self Customer Strategy Manager Name: Katie Joya Delivery Method: HAND - Hand Delivered Loly Days: Prior Verbal Notification: Recipient Understood Notice: Yes Recipient Signature: Yes Med Rec Note Co-signed by Attending: Coverage Notice Comment: Patient Choice signed/provided for [facility]. Original to chart. Reviewer: [email or web address] Valdovinos Notice Issued Date-Time: 08/01/2019 16:17 Notice Type: IM Discharge Notice Notice Delivered To: Patient Relationship to Patient: Self Customer Strategy Manager Name: Norma Joya Delivery Method: HAND - Hand Delivered Loly Days: Prior Verbal Notification: Recipient Understood Notice: Yes Recipient Signature: Yes Med Rec Note Co-signed by Attending: Coverage Notice Comment: Patient signed DC IMM Reviewer: [id number] Valdovinos Notice Issued Date-Time: 08/05/2019 18:15 Notice Type: Patient Choice Letter Notice Delivered To: Patient Relationship to Patient: Self Customer Strategy Manager Name: Katie Joya Delivery Method: HAND - Hand Delivered Loly Days: Prior Verbal Notification: Recipient Understood Notice: Yes Recipient Signature: Yes Med Rec Note Co-signed by Attending: Coverage Notice Comment: Patient choice for [facility]. Original to chart. Reviewer: [id number] Valdovinos Notice Issued Date-Time: 08/05/2019 18:15 Notice Type: Patient Choice Letter Notice Delivered To: Patient Relationship to Patient: Self Customer Strategy Manager Name: Katie Joya Delivery Method: HAND - Hand Delivered Loly Days: Prior Verbal Notification: Recipient Understood Notice: Yes Recipient Signature: Yes Med Rec Note Co-signed by Attending: Coverage Notice Comment: [facility] Reviewer: [id number] Valdovinos Notice Issued Date-Time: 08/06/2019 13:02 Notice Type: IM Discharge Notice Notice Delivered To: Patient Relationship to Patient: Self Customer Strategy Manager Name: Norma Joya Delivery Method: HAND - Hand Delivered Loly Days: Prior Verbal Notification: Recipient Understood Notice: Yes Recipient Signature: Yes Med Rec Note Co-signed by Attending: Coverage Notice Comment: DC IMM Last DP export: 08/06/19 3:27 p Patient Name: NORMA JOYA Page [phone] at 0906 All edits/amendments must be made on the electronic document DICTATION DATE: 08/07/19905 VISION SPECIALIST: AFTAB 08/07/19905 RPT#: [id number] DC DATE:08/06/19 STATUS: DIS IN [facility] [address] [place] [address] END OF REPORT
== END 2019-08-06 22:40 | disposition home health service (06) | DRG 468 ==
LOC: D.SDCHOLD 06-09 18:15 → D.M3 07-28 09:53 → D.SDCHOLD 07-28 09:53 → D.M3 07-28 16:37 → D.SDCHOLD 07-28 18:15 → D.M3 08-06 22:40
PROVIDERS: ADMIT Orthopaedic Surgery; ATTEND Orthopaedic Surgery
PROC: 0SRW0J9 Replacement of Left Knee Joint, Tibial Surface with Synthetic Substitute, Cemented, Open Approach (ICD-10-PCS; 2019-07-28)
PROC: 0QBC0ZZ Excision of Left Lower Femur, Open Approach (ICD-10-PCS; 2019-07-28)
PROC: 0SRD0EZ Replacement of Left Knee Joint with Articulating Spacer, Open Approach (ICD-10-PCS; 2019-07-28)
PROC: 0SPD0JZ Removal of Synthetic Substitute from Left Knee Joint, Open Approach (ICD-10-PCS; principal; 2019-07-28 12:00)
DX: T84.54XA Infection and inflammatory reaction due to internal left knee prosthesis, initial encounter (principal); Y83.9 Surgical procedure, unspecified as the cause of abnormal reaction of the patient, or of later complication, without mention of misadventure at the time of the procedure; I95.9 Hypotension, unspecified

== ENCOUNTER → 2019-05-21 22:16 | Outpatient (CLI) | payer MEDICARE, OTHER ==
[2019-04-01 10:34] VITALS: BMI 34.0
== END | disposition home or self-care (01) ==
LOC: D.LABREF 22:16
PROVIDERS: ATTEND Orthopaedic Surgery
DX: M25.562 Pain in left knee (principal)

== ENCOUNTER → 2019-08-11 13:07 | Outpatient (CLI) | payer MEDICARE, OTHER ==
[2019-07-31 13:03] VITALS: BMI 38.6
[~2019-08-11 13:07] MED LIST changes: +CYMBALTA60 MG PO; +ZYVOX PREMIX600 MG IV
[2019-08-11 20:52] LABS: C-REACTIVE PROTEIN 2.8 mg/dL (0.0-0.9); CREATININE - SERUM 1.1 mg/dL (0.6-1.3)
[2019-08-11 20:57] LABS: BASOPHILS 0.2 % (0-2); EOSINOPHILS 5.8 % (0-7); HEMATOCRIT 32.5 % (36.0-48.0); HEMOGLOBIN 10.1 g/dL (12-16); IMMATURE GRANULOCYTES 0.2 % (0-5); LYMPHOCYTES 22.4 % (15-50); MCH 25.7 pg (26.0-34.0); MCHC 31.1 g/dL (31.0-37.0); MCV 82.7 fL (80.0-100.0); MEAN PLATELET VOLUME 8.6 fL (7.4-10.4); MONOCYTES 6.1 % (2-11); NEUTROPHILS 65.3 % (40-80); RBC 3.93 10x6/uL (4.00-5.40); RDW 14.4 % (11.5-14.5); WBC 5.5 10x3/uL (4.8-10.8)
[2019-08-11 21:21] LABS: PLATELET COUNT 235 10x3/uL (130-400)
[2019-08-11 22:25] LABS: ERYTHROCYTE SEDIMENTATION RATE 32 mm/hr (0-30)
== END | disposition home or self-care (01) ==
LOC: D.LABREF 13:07
PROVIDERS: ATTEND Orthopaedic Surgery
DX: B99.9 Unspecified infectious disease (principal); Z96.652 Presence of left artificial knee joint; Z79.2 Long term (current) use of antibiotics

== ENCOUNTER → 2019-08-18 20:26 | Outpatient (CLI) | payer MEDICARE, OTHER ==
[2019-07-31 13:03] VITALS: BMI 38.6
[2019-08-18 21:22] LABS: BASOPHILS 0.5 % (0-2); EOSINOPHILS 6.5 % (0-7); HEMOGLOBIN 9.6 g/dL (12-16); IMMATURE GRANULOCYTES 0.2 % (0-5); LYMPHOCYTES 29.2 % (15-50); MCH 25.7 pg (26.0-34.0); MCV 85.8 fL (80.0-100.0); MEAN PLATELET VOLUME 8.3 fL (7.4-10.4); MONOCYTES 9.7 % (2-11); NEUTROPHILS 53.9 % (40-80); RBC 3.73 10x6/uL (4.00-5.40); RDW 15.4 % (11.5-14.5); WBC 5.5 10x3/uL (4.8-10.8)
[2019-08-18 21:25] LABS: C-REACTIVE PROTEIN 0.8 mg/dL (0.0-0.9); CREATININE - SERUM 1.3 mg/dL (0.6-1.3)
[2019-08-18 21:40] LABS: PLATELET COUNT 181 10x3/uL (130-400)
[2019-08-18 22:54] LABS: ERYTHROCYTE SEDIMENTATION RATE 8 mm/hr (0-30)
== END | disposition home or self-care (01) ==
LOC: D.LABREF 20:26
PROVIDERS: ATTEND Orthopaedic Surgery
DX: B99.9 Unspecified infectious disease (principal)

== ENCOUNTER → 2019-08-25 19:20 | Outpatient (CLI) | payer MEDICARE, OTHER ==
[2019-07-31 13:03] VITALS: BMI 38.6
[2019-08-25 20:20] LABS: BASOPHILS 0.6 % (0-2); EOSINOPHILS 7.1 % (0-7); HEMATOCRIT 44.1 % (36.0-48.0); HEMOGLOBIN 13.7 g/dL (12-16); IMMATURE GRANULOCYTES 1.3 % (0-5); LYMPHOCYTES 21.1 % (15-50); MCH 26.9 pg (26.0-34.0); MCHC 31.1 g/dL (31.0-37.0); MCV 86.5 fL (80.0-100.0); MEAN PLATELET VOLUME 8.7 fL (7.4-10.4); MONOCYTES 10.7 % (2-11); NEUTROPHILS 59.2 % (40-80); RDW 16.5 % (11.5-14.5); WBC 3.1 10x3/uL (4.8-10.8)
[2019-08-25 20:35] LABS: PLATELET COUNT 96 10x3/uL (130-400)
[2019-08-25 21:09] LABS: PLATELET ESTIMATE DECREASED
[2019-08-25 21:26] LABS: ERYTHROCYTE SEDIMENTATION RATE 4 mm/hr (0-30)
== END | disposition home or self-care (01) ==
LOC: D.LABREF 19:20
PROVIDERS: ATTEND Orthopaedic Surgery
DX: B99.9 Unspecified infectious disease (principal)

== ENCOUNTER → 2019-09-01 15:43 | Outpatient (CLI) | payer MEDICARE, OTHER ==
[2019-07-31 13:03] VITALS: BMI 38.6
[2019-09-01 17:37] LABS: BASOPHILS 0.5 % (0-2); EOSINOPHILS 7.5 % (0-7); HEMATOCRIT 31.7 % (36.0-48.0); HEMOGLOBIN 9.8 g/dL (12-16); IMMATURE GRANULOCYTES 0.2 % (0-5); LYMPHOCYTES 25.9 % (15-50); MCH 26.3 pg (26.0-34.0); MCHC 30.9 g/dL (31.0-37.0); MEAN PLATELET VOLUME 8.6 fL (7.4-10.4); MONOCYTES 8.9 % (2-11); RBC 3.73 10x6/uL (4.00-5.40); RDW 16.7 % (11.5-14.5); WBC 4.4 10x3/uL (4.8-10.8)
[2019-09-01 17:39] LABS: PLATELET COUNT 164 10x3/uL (130-400)
[2019-09-01 17:54] LABS: CREATININE - SERUM 1.1 mg/dL (0.6-1.3)
[2019-09-01 19:19] LABS: ERYTHROCYTE SEDIMENTATION RATE 11 mm/hr (0-30)
== END | disposition home or self-care (01) ==
LOC: D.LABREF 15:43
PROVIDERS: ATTEND Orthopaedic Surgery
DX: Z47.89 Encounter for other orthopedic aftercare (principal)

== ENCOUNTER 2019-09-19 12:27 | Inpatient (IN) | payer MEDICARE, OTHER ==
[~2019-09-19] VITALS: Ht 157.5 cm; Wt 86.2 kg
[2019-09-25] MEDS ORDERED: TRAZODONE HCL150 MG PO (08:59)
[2019-09-25 09:54] LABS: HEMATOCRIT 35.4 % (36.0-48.0); LYMPHOCYTES 35.3 % (15-50); MCH 26.8 pg (26.0-34.0); MCHC 31.1 g/dL (31.0-37.0); MCV 86.3 fL (80.0-100.0); MEAN PLATELET VOLUME 8.8 fL (7.4-10.4); NEUTROPHILS 46.4 % (40-80); RDW 16.8 % (11.5-14.5); WBC 5.8 10x3/uL (4.8-10.8)
[2019-09-25 10:01] LABS: PLATELET COUNT 237 10x3/uL (130-400)
[2019-09-25 10:02] LABS: ANION GAP 8.8 mmol/L (8-16); CALCIUM 8.8 mg/dL (8.5-10.1); CARBON DIOXIDE 31.9 mmol/L (21.0-32.0); POTASSIUM - SERUM 3.7 mmol/L (3.5-5.1)
[2019-09-25 11:03] LABS: APTT 34.3 SECONDS (22.8-39.4); INR 0.97 (0.85-1.17); PROTIME 12.9 SECONDS (11.6-15.0)
[2019-09-29] VITALS (11 sets, daily range): BP systolic 115–135; BP diastolic 65–93; BMI 34.8
[2019-09-29] MEDS ORDERED: VALIUM5 MG PO (11:25)
--- NOTE | 2019-09-29 14:17 | NUR ---
PLASMA BLADE USED ON SETTING 6/8. CAUTERY PAD PLACED ON RIGHT BUTTOCK. LOT#[id number] EXP. 12/03/2020.
--- NOTE | 2019-09-29 16:42 | NUR ---
OPA IN AIRWAY ON ADMIT
--- NOTE | 2019-09-29 16:48 | NUR ---
SCOPE PATCH BEHIND RT EAR ON ADMIT
--- NOTE | 2019-09-29 19:11 | NUR ---
PATIENT RESTING IN BED WITH EYES CLOSED AND NO S/S OF DISTRESS. BED IN LOWEST POSITION, CALL LIGHT WITHIN REACH, AND BED ALARM ON. ENCOURAGED THE PATIENT TO CALL IF SHE HAS NEEDS. DAUGHTER AT BEDSIDE. WILL CONTINUE TO MONITOR.
--- NOTE | 2019-09-29 19:12 | NUR ---
CONTACTED RECOVERY TO VERIFY IF DR. BRISENO WISHED FOR PT TO HAVE CPM, DUE TO FAMILY VOICING THAT SHE WAS NOT TO HAVE CPM. DR. BRISENO VOICES NO CPM FOR PT AT THIS TIME.
--- NOTE | 2019-09-29 20:26 | NUR ---
ADMINISTERED MEDS PER ORDERS. PATIENT DENIES OTHER NEEDS. VSS. WILL CONTINUE TO MONITOR.
--- NOTE | 2019-09-29 23:20 | NUR ---
ASSISTED PATIENT ON AND OFF BEDPAN. PATIENT VOIDED.
[2019-09-30 01:05] LABS: BILIRUBIN NEGATIVE (NEGATIVE); GLUCOSE NEGATIVE (NEGATIVE); KETONE NEGATIVE (NEGATIVE); NITRITE NEGATIVE (NEGATIVE); UROBILINOGEN NORMAL (NORMAL)
--- NOTE | 2019-09-30 01:58 | NUR ---
PATIENT RESTING IN BED WITH EYES CLOSED AND NO S/S OF DISTRESS. BED IN LOWEST POSITION, CL IN REACH. WILL CONTINUE TO MONITOR.
--- NOTE | 2019-09-30 02:25 | NUR ---
ASSISTED PATIENT ON AND OFF BEDPAN. WILL CONTINUE TO MONITOR
[2019-09-30 03:36] VITALS: BP 136/88
[2019-09-30 06:52] LABS: HEMATOCRIT 31.3 % (36.0-48.0); HEMOGLOBIN 9.6 g/dL (12-16); MCH 26.8 pg (26.0-34.0); MCHC 30.7 g/dL (31.0-37.0); MCV 87.4 fL (80.0-100.0); MEAN PLATELET VOLUME 9.3 fL (7.4-10.4); RBC 3.58 10x6/uL (4.00-5.40); RDW 16.9 % (11.5-14.5); WBC 6.1 10x3/uL (4.8-10.8)
[2019-09-30 07:40] VITALS: BP 160/80
--- NOTE | 2019-09-30 07:44 | NUR ---
PT RESTING IN BED. WITH C/O PAIN TO LEFT LOWER EXTREMITY 12/19. DISCUSSED PT RECENT ADMINISTRATION OF PAIN MEDICATION. SHE VOICES "DEEPAK GUEVARA TELL THE DR THAT I WANT SOME PAIN MEDICINE TO SHOOT THROUGH MY IV." PROVIDED EDUCATION REGARDING PAIN MEDICATION AND ADMINISTRATION TIMES. PT VOICES UNDERSTANDING. SALINE LOC TO RIGHT WRIST. SITE WITHOUT REDNESS OR EDEMA. DRESSING TO LEFT LOWER EXTREMITY, C/D/I. DENIES FURTHER NEEDS AT THIS TIME. CL WITHIN REACH. ENCOURAGED TO CALL WITH NEEDS. CONTINUE POC
[2019-09-30 11:20] VITALS: Ht 157.5 cm; Wt 86.2 kg
[2019-09-30 12:00] VITALS: BP 123/80
--- NOTE | 2019-09-30 14:20 | NUR ---
PT CALLED REQUESTING ASSISTANCE TO BSC. PT ASSISTED FROM CHAIR AT BEDSIDE TO BEDSIDE COMMODE X 1 PERSON ASSIST. PT REQUEST TO LIE DOWN IN BED. INSTRUCTED PT THAT PT WAS HERE TO WALK WITH HER. PT VOICES "I AM HURTING TOO BAD TO WALK RIGHT NOW. I JUST NEED TO LAY DOWN BECAUSE I AM FEELING NAUSEATED." INFORMED BUCK WITH PT. PT ENTERED ROOM FOR PHYSICAL THERAPY EXERCISE. SHE AGAIN VOICES TAHT SHE IS UNABLE TO AMBULATE AT THIS TIME WITH PT.
[2019-09-30 17:09] VITALS: BP 132/78
--- NOTE | 2019-09-30 19:30 | NUR ---
ASSISTED UP TO BEDSIDE COMODE, VOIDED WITHOUT DIFFICULTY ASSISTED BACK TO BED, BRACE IN USE TO LEFT KNEE, C/O PAIN TO LEFT KNEE DRESSING C/D/I, PAIN PILL OFFERED STATES I CAN HAVE TORDOL AGAIN AT 10PM THEY SCHEDULED IT FOR ME EVERY 6 HRS IT WORKS BETTER THAN THE PILLS, SEE SHIFT ASSESSMENT, CALL LIGHT IN REACH
[2019-09-30 21:00] VITALS: BP 114/70
[2019-10-01 05:00] VITALS: BP 120/66
[2019-10-01 08:00] VITALS: BP 116/74
[2019-10-01 09:05] LABS: ANION GAP 11.3 mmol/L (8-16); CALCIUM 8.1 mg/dL (8.5-10.1); CREATININE - SERUM 0.9 mg/dL (0.6-1.3); POTASSIUM - SERUM 4.3 mmol/L (3.5-5.1)
--- NOTE | 2019-10-01 09:07 | MORECARE ---
CASE MANAGEMENT DISCHARGE SUMMARY PATIENT: IKER JOYA UNIT: [id number] ADM DATE: 09/29/19 AGE: 68 : 52 SEX: F ROOM/BED: D.1212 AUTHOR: VALENTINA SERRA PHYSICIAN: REFERRING PHYSICIAN: JORDAN BRISENO MD DATE OF SERVICE: 10/01/19 Discharge Plan Patient Name: IKER JOYA [facility] [facility] 1950 Planned Disposition: Home with Home Health Anticipated Discharge Date: Discharge Date: Expected LOS: Initial Reviewer: [email or web address] Initial Review Date: 09/29/2019 Generated: 10/01/19 10:07 am DCPIA - Discharge Planning Initial Assessment Updated by [email or web address]: Filomena Newman on 10/01/19 9:06 am * Is the patient Alert and Oriented? Yes * How many steps to enter\exit or inside your home? ramp * PCP WILLIS * [facility] * Preadmission Environment Home with Family * ADLs Independent * Equipment Bedside Commode Rolling Walker Shower Chair * Other Equipment KNEE BRACE * List name and contact numbers for known caregivers / representatives who currently or will assist patient after discharge: SABRINA ARREDONDO [phone] SARKIS (SPOUSE) [phone] * Verbal permission to speak to the caregivers and representatives has been obtained from the patient. N/A * Community resources currently utilized None * Additional services required to return to the preadmission environment? Yes * Can the patient safely return to the preadmission environment? Yes * Has this patient been hospitalized within the prior 30 days at any hospital? No Patient Name: IKER JOYA Page [phone] at 0907 All edits/amendments must be made on the electronic document DICTATION DATE: 10/01/19906 WORK ORDER CLERK: AFTAB 10/01/19906 RPT#: [id number] DC DATE: STATUS: ADM IN [facility] [address] [place] [address] END OF REPORT
--- NOTE | 2019-10-01 09:14 | MORECARE ---
CASE MANAGEMENT DISCHARGE SUMMARY PATIENT: IKER JOYA UNIT: [id number] ADM DATE: 09/29/19 AGE: 68 : 52 SEX: F ROOM/BED: D.1212 AUTHOR: MARYSE,DOC PHYSICIAN: REFERRING PHYSICIAN: JORDAN BRISENO MD DATE OF SERVICE: 10/01/19 Discharge Plan Patient Name: IKER JOYA Facility: [facility]:[place] : 1950 Planned Disposition: Home with Home Health Anticipated Discharge Date: Discharge Date: Expected LOS: Initial Reviewer: [email or web address] Initial Review Date: 09/29/2019 Generated: 10/01/19 10:14 am DCP- Discharge Planning Updated by [email or web address]: Filomena Newman on 10/01/19 8:[address] imm served and explained DCP- Discharge Planning Updated by [email or web address]: Filomena Newman on 10/01/19 8:[address] Patient Name: IKER JOYA Admission Status: Elective Accout number: [id number] Admission Date: 09-29-2019 : 1950 Admission Diagnosis: Attending: JORDAN BRISENO Current LOS: 2 Anticipated DC Date: Planned Disposition: Home with Home Health Primary Insurance: [employer] CHOICE PPO M[employer]VANT Discharge Planning Comments: CM met with patient to complete initial dc planning assessment. CM educated patient on the CM role and verbal consent given by patient to complete assessment. Patient lives at home with her spouse and her adult daughter and her family. At discharge patient plans to return home and feels this is a safe discharge. Her daughter will be the one to drive her home. CM discussed availability of home health, rehab services, and medical equipment. Patient states that she has a ramp, walker, BSC, shower chair and an electric ernandez size bed. She plans on discharging today and would like to have HH in the home. BLANKA with [facility]. I will send clinicals to [facility] and let her know. Patient denied known discharge needs at this time. CM will continue to follow and will assist as needed with dc plans/needs. Irrigationist: Filomena Newman DCPIA - Discharge Planning Initial Assessment Updated by [email or web address]: Filomena Newman on 10/01/19 9:06 am * Is the patient Alert and Oriented? Yes * How many steps to enter\exit or inside your home? ramp * PCP WILL[facility] * [facility] * Preadmission Environment Home with Family * ADLs Independent * Equipment Bedside Commode Rolling Walker Shower Chair * Other Equipment KNEE BRACE * List name and contact numbers for known caregivers / representatives who currently or will assist patient after discharge: SABRINA ARREDONDO [phone] SARKIS (SPOUSE) [phone] * Verbal permission to speak to the caregivers and representatives has been obtained from the patient. N/A * Community resources currently utilized None * Additional services required to return to the preadmission environment? Yes * Can the patient safely return to the preadmission environment? Yes * Has this patient been hospitalized within the prior 30 days at any hospital? No External Providers External Provider: [facility] Next Contact Date: Service Request Date: Service Type: Resolution: Reviewer: Comments: Coverage Notice Reviewer: [email or web address] Dominick Newman Notice Issued Date-Time: 10/01/2019 8:10 Notice Type: Patient Choice Letter Notice Delivered To: Patient Relationship to Patient: Deliverer Outside Name: Delivery Method: HAND - Hand Delivered Loly Days: Prior Verbal Notification: Recipient Understood Notice: Yes Recipient Signature: Yes Med Rec Note Co-signed by Attending: Coverage Notice Comment: blanka with ponce Reviewer: [id number] Dominick Newman Notice Issued Date-Time: 10/01/2019 8:10 Notice Type: IM Discharge Notice Notice Delivered To: Patient Relationship to Patient: Deliverer Outside Name: Delivery Method: HAND - Hand Delivered Loly Days: Prior Verbal Notification: Recipient Understood Notice: Yes Recipient Signature: Yes Med Rec Note Co-signed by Attending: Coverage Notice Comment: imm given and explained Last DP export: 10/01/19 8:07 a Patient Name: IKER JOYA Page [phone] at 0914 All edits/amendments must be made on the electronic document DICTATION DATE: 10/01/19913 BEAM PRESS OPERATOR: AFTAB 10/01/19913 RPT#: [id number] DC DATE: STATUS: ADM IN [facility] [address] [place] [address] END OF REPORT
--- NOTE | 2019-10-01 09:14 | NUR ---
PT ALERT X 4. BREATH SOUNDS CLEAR BILAT. IV TO RIGHT WRIST, SALINE LOCKED. DRESSING TO LEFT KNEE, BRACE IN PLACE. PT REPORTING PAIN OF 8/10, NO MEDICATION AVAILABLE AT THIS TIME, WILL CONTINUE TO MONITOR. BED LOW, CALL LIGHT IN REACH. NO OTHER NEEDS AT THIS TIME.
[2019-10-01 10:57] LABS: BASOPHILS 0.8 % (0-2); EOSINOPHILS 9.2 % (0-7); HEMATOCRIT 27.8 % (36.0-48.0); HEMOGLOBIN 8.6 g/dL (12-16); IMMATURE GRANULOCYTES 0.3 % (0-5); LYMPHOCYTES 13.1 % (15-50); MCH 26.9 pg (26.0-34.0); MCHC 30.9 g/dL (31.0-37.0); MCV 86.9 fL (80.0-100.0); MEAN PLATELET VOLUME 9.1 fL (7.4-10.4); NEUTROPHILS 65.6 % (40-80); PLATELET COUNT 115 10x3/uL (130-400); RDW 16.9 % (11.5-14.5); WBC 5.9 10x3/uL (4.8-10.8)
[2019-10-01] MEDS ORDERED: HYDROCODON-ACE1 EA10 PO (11:27)
[2019-10-01] MEDS ORDERED: ELIQUIS2.5 MG PO (11:27)
--- NOTE | 2019-10-01 15:07 | NUR ---
DISCHARGE PAPERWORK SIGNED, ALL QUESTIONS ANSWERED. IV TO RIGHT WRIST DC'D, TIP INTACT. ESCORTED OUT VIA WHEELCHAIR.
--- NOTE | 2019-10-04 09:11 | OP ---
PATIENT NAME: IKER JOYA MEDICAL RECORD: [id number] :54 LOCATION:D. 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 PROCEDURE: Revision of left total knee arthroplasty. SURGEON: Jordan Briseno MD ISOLATION WASHER: GEOVANNI David INTRAOPERATIVE COMPLICATIONS: Essentially none. SUMMARY OF PATHOLOGIC FINDINGS: The patient had fairly clean synovial fluid with no evidence of further infection. INDICATIONS: Ms. Iker Joya had a very subtle infection that caused loosening. She had had an articulated spacer put in place and done very well and her inflammatory markers had gone to normal. She was then scheduled for revision to take out the articulated spacer and put in a Triathlon total stabilized implant. For details of the components used, please see the chart. It was a Triathlon stabilized implant. OPERATIVE SUMMARY IN DETAIL: After obtaining the appropriate preoperative orthopedic surgery consent as well as anesthetic consultation, evaluation and clearance, the patient was brought to the operating room and placed on the operating table in supine position. After adequate general laryngeal mask airway was administered, the patient's left lower extremity was prepared with a tourniquet, it was then prepped and draped in a routine sterile fashion. The leg was elevated and exsanguinated, tourniquet inflated to 350 mmHg. At this point, the appropriate timeout was taken and agreed upon by all in the operative suite, given the patient's unique identifiers. A midline incision was made over the previous incision. This was taken down for paramedian arthrotomy. The previously placed Ethibonds were removed in their entirety. The patella was subluxed laterally and the distal femoral component was exposed. The articulated distal femoral component was removed with relative ease without substantial blood loss and all-poly tibia was also removed with very little bone loss. At this point, all excess cement was removed, both from the distal femur and the tibia. Serial and sequential reaming was done for the appropriate sized stem for the TS insert. This was followed by measuring and cutting the chamfer cuts as well as the notch box for the distal femoral component. The trial was then built on the back table and placed with good fit and fill. Attention was turned to the proximal tibia while the femoral trial was left in place. Serial and sequential reaming and broaching were done. This was followed by cleanup cut on the proximal tibia. The appropriate size tibial baseplate was then put into place and final tibial preparations were made. The trial was put into place along with the trial insert and the knee was taken through range of motion with the trial in place and found to be stable in all OPERATIVE REPORT [id number] IKER JOYA planes. At this point, the trial was removed. The knee was irrigated with pulsatile lavage hair clipper power while the final implants were being assembled on the back table. Final implants were then cemented into place. All excess cement was removed. When the cement was allowed to harden, the knee was taken through range of motion and found to be stable in all planes. A gram of vancomycin and a gram of tobramycin were then put into the knee cavity. Paramedian arthrotomy was closed with #2 Ethibond by GEOVANNI David followed by #1 Vicryl, 2-0 Vicryl, and skin daniel. Sterile dressings were applied. The patient was awakened and taken to recovery room in stable condition. All final needle and sponge counts were correct. TRANSINT:[id number] Voice Confirmation ID: [id number] DOCUMENT ID: [id number] JORDAN BRISENO MD at 0911 CC: [id number] DICTATION DATE: 10/03/19 1010 FIBERGLASS FABRICATOR: 10/03/19 1653 DIS IN 10/01/19 [facility] [address] [id number]
--- NOTE | 2019-10-04 15:16 | MORECARE ---
CASE MANAGEMENT DISCHARGE SUMMARY PATIENT: IKER JOYA UNIT: [id number] ADM DATE: 09/29/19 AGE: 68 : 52 SEX: F ROOM/BED: D.1212 AUTHOR: MARYSE,DOC PHYSICIAN: REFERRING PHYSICIAN: JORDAN BRISENO MD DATE OF SERVICE: 10/04/19 Discharge Plan Patient Name: IKER JOYA Facility: [facility]:[place] : 1950 Planned Disposition: Home with Home Health Anticipated Discharge Date: Discharge Date: 10/01/2019 Expected LOS: Initial Reviewer: [id number] Initial Review Date: 09/29/2019 Generated: 10/04/19 4:16 pm DCP- Discharge Planning Updated by [id number]: Filomena Newman on 10/01/19 8:[address] imm served and explained DCP- Discharge Planning Updated by [id number]: Filomena Newman on 10/01/19 8:[address] Patient Name: IKER JOYA Admission Status: Elective Accout number: [id number] Admission Date: 09-29-2019 : 1950 Admission Diagnosis: Attending: JORDAN BRISENO Current LOS: 2 Anticipated DC Date: Planned Disposition: Home with Home Health Primary Insurance: [employer] CHOICE PPO [employer] Discharge Planning Comments: CM met with patient to complete initial dc planning assessment. CM educated patient on the CM role and verbal consent given by patient to complete assessment. Patient lives at home with her spouse and her adult daughter and her family. At discharge patient plans to return home and feels this is a safe discharge. Her daughter will be the one to drive her home. CM discussed availability of home health, rehab services, and medical equipment. Patient states that she has a ramp, walker, BSC, shower chair and an electric ernandez size bed. She plans on discharging today and would like to have HH in the home. BLANKA with [facility]. I will send clinicals to [facility] and let her know. Patient denied known discharge needs at this time. CM will continue to follow and will assist as needed with dc plans/needs. Lawn Care Professional: Filomena Newman DCPIA - Discharge Planning Initial Assessment Updated by [id number]: Filomena Newman on 10/01/19 9:06 am * Is the patient Alert and Oriented? Yes * How many steps to enter\exit or inside your home? ramp * PCP WILLIS * Pharmacy [facility] * Preadmission Environment Home with Family * ADLs Independent * Equipment Bedside Commode Rolling Walker Shower Chair * Other Equipment KNEE BRACE * List name and contact numbers for known caregivers / representatives who currently or will assist patient after discharge: SABRINA ARREDONDO [phone] SARKIS (SPOUSE) [phone] * Verbal permission to speak to the caregivers and representatives has been obtained from the patient. N/A * Community resources currently utilized None * Additional services required to return to the preadmission environment? Yes * Can the patient safely return to the preadmission environment? Yes * Has this patient been hospitalized within the prior 30 days at any hospital? No Coverage Notice Reviewer: [id number] Dominick Newman Notice Issued Date-Time: 10/01/2019 8:10 Notice Type: Patient Choice Letter Notice Delivered To: Patient Relationship to Patient: Clay Thrower Name: Delivery Method: HAND - Hand Delivered Loly Days: Prior Verbal Notification: Recipient Understood Notice: Yes Recipient Signature: Yes Med Rec Note Co-signed by Attending: Coverage Notice Comment: [facility] Reviewer: [id number] Dominick Newman Notice Issued Date-Time: 10/01/2019 8:10 Notice Type: IM Discharge Notice Notice Delivered To: Patient Relationship to Patient: Clay Thrower Name: Delivery Method: HAND - Hand Delivered Loly Days: Prior Verbal Notification: Recipient Understood Notice: Yes Recipient Signature: Yes Med Rec Note Co-signed by Attending: Coverage Notice Comment: imm given and explained Last DP export: 10/01/19 8:14 a Patient Name: IKER JOYA Page [phone] at 1516 All edits/amendments must be made on the electronic document DICTATION DATE: 10/04/191515 [employer] MAINFRAME SYSTEMS PROGRAMMER: AFTAB 10/04/191515 RPT#: [id number] DC DATE:10/01/19 STATUS: DIS IN [facility] [address] [place] [address] END OF REPORT
== END 2019-10-01 15:07 | disposition home health service (06) | DRG 468 ==
LOC: D.M2 09-29 12:45 → D.SDCHOLD 09-29 13:00 → D.M2 09-29 13:10 → D.M3 09-29 18:29
PROVIDERS: Family Medicine; ADMIT Orthopaedic Surgery; ATTEND Orthopaedic Surgery
PROC: 0SRD0J9 Replacement of Left Knee Joint with Synthetic Substitute, Cemented, Open Approach (ICD-10-PCS; 2019-09-29)
PROC: 0SPD0JZ Removal of Synthetic Substitute from Left Knee Joint, Open Approach (ICD-10-PCS; principal; 2019-09-29 12:45)
DX: T84.54XA Infection and inflammatory reaction due to internal left knee prosthesis, initial encounter (principal); Y83.9 Surgical procedure, unspecified as the cause of abnormal reaction of the patient, or of later complication, without mention of misadventure at the time of the procedure; D64.9 Anemia, unspecified; F32.9 Major depressive disorder, single episode, unspecified

== ENCOUNTER 2019-10-01 22:32 | Inpatient (IN) | payer MEDICARE, OTHER ==
[~2019-10-01] VITALS: Ht 157.5 cm; Wt 104.2 kg
[~2019-10-01 22:32] MED LIST changes: +VALIUM5 MG PO
[2019-10-01 23:06] LABS: BASOPHILS 0.3 % (0-2); HEMATOCRIT 25.8 % (36.0-48.0); HEMOGLOBIN 8.1 g/dL (12-16); IMMATURE GRANULOCYTES 0.3 % (0-5); LYMPHOCYTES 14.6 % (15-50); MCH 26.9 pg (26.0-34.0); MCHC 31.4 g/dL (31.0-37.0); MCV 85.7 fL (80.0-100.0); MEAN PLATELET VOLUME 9.1 fL (7.4-10.4); MONOCYTES 9.5 % (2-11); NEUTROPHILS 66.3 % (40-80); PLATELET COUNT 123 10x3/uL (130-400); RBC 3.01 10x6/uL (4.00-5.40); RDW 16.9 % (11.5-14.5); WBC 6.4 10x3/uL (4.8-10.8)
[2019-10-01 23:11] LABS: APTT 44.7 SECONDS (22.8-39.4); INR 1.26 (0.85-1.17); PROTIME 15.7 SECONDS (11.6-15.0)
--- NOTE | 2019-10-01 23:11 | NUR ---
URINE SENT TO LAB AT THIS TIME, PT REPOSITIONED IN BED. DAUGHTER IS AT BEDSIDE. PT IS AAOX4 AND ANSWERING QUESTIONS APPROPRIATELY.
[2019-10-01 23:13] LABS: CALC OSMOLALITY 265 mosm/kg (275-300); CALCIUM 8.2 mg/dL (8.5-10.1); CARBON DIOXIDE 28.2 mmol/L (21.0-32.0); CHLORIDE - SERUM 100 mmol/L (98-107); CREATININE - SERUM 1.1 mg/dL (0.6-1.3); GLUCOSE 111 mg/dL (74-106); POTASSIUM - SERUM 4.1 mmol/L (3.5-5.1); SODIUM 133 mmol/L (136-145); UREA NITROGEN 9 mg/dL (7-18); eGFR NON AFRICAN AMERICAN 53 mL/min (90-120)
[2019-10-01 23:25] LABS: BILIRUBIN NEGATIVE (NEGATIVE); GLUCOSE NEGATIVE (NEGATIVE); KETONE NEGATIVE (NEGATIVE); NITRITE NEGATIVE (NEGATIVE); SPECIFIC GRAVITY 1.005 (1.005-1.020); UROBILINOGEN NORMAL (NORMAL)
[2019-10-01 23:34] LABS: ALBUMIN 2.7 g/dL (3.4-5.0); ALKALINE PHOSPHATASE 190 U/L (30-120); ALT (SGPT) 70 U/L (10-68); BILIRUBIN - TOTAL 0.93 mg/dL (0.2-1.3); CREATINE KINASE 152 UL (21-215); PRO BNP 308 pg/mL (0-125); PROTEIN - SERUM 5.3 g/dL (6.4-8.2); TROPONIN-I 0.039 ng/mL (0.000-0.060)
[2019-10-01 23:43] LABS: CREATINE KINASE 152 UL (21-215); TROPONIN-I 0.039 ng/mL (0.000-0.060)
[2019-10-02] VITALS (11 sets, daily range): BP systolic 90–119; BP diastolic 46–78; BMI 34.8
--- NOTE | 2019-10-02 01:00 | NUR ---
PT RESTING IN BED, AWAKES TO VERBAL STIMULI. EVEN RISE AND FALL OF CHEST. REPORTS THAT SUPPLEMENTAL O2 HAS HELPED WITH HER SHORTNESS OF BREATH. PT DENIES NEEDS AT THIS TIME. WILL CONTINUE TO MONITOR.
--- NOTE | 2019-10-02 02:35 | NUR ---
ASSISTED PT WITH BED LUGO AT THIS TIME AND REPOSITIONED IN BED. CALL LIGHT IN REACH, PT DENIES NEEDS.
--- NOTE | 2019-10-02 03:50 | NUR ---
PT ARRIVED TO FLOOR VIA STRETCHER. TRANSFERED TO BED. STATES PAIN IN LEFT KNEE 12/19. GAVE MORPHINE ORDERED. IV LEFT WRIST INFUSING NS @ 75. LEFT KNEE SWOLLEN AND WARM TO TOUCH. DENIES NEEDS AT THIS TIME. CL IN REACH, WILL CTM
[2019-10-02 06:59] LABS: BASOPHILS 0.2 % (0-2); EOSINOPHILS 11.1 % (0-7); HEMATOCRIT 25.4 % (36.0-48.0); HEMOGLOBIN 7.6 g/dL (12-16); IMMATURE GRANULOCYTES 0.2 % (0-5); LYMPHOCYTES 17.8 % (15-50); MCHC 29.9 g/dL (31.0-37.0); MEAN PLATELET VOLUME 9.2 fL (7.4-10.4); MONOCYTES 11.5 % (2-11); NEUTROPHILS 59.2 % (40-80); PLATELET COUNT 116 10x3/uL (130-400); RBC 2.92 10x6/uL (4.00-5.40); RDW 16.9 % (11.5-14.5); WBC 5.4 10x3/uL (4.8-10.8)
[2019-10-02 07:16] LABS: ALBUMIN 2.5 g/dL (3.4-5.0); ANION GAP 5.8 mmol/L (8-16); BILIRUBIN - TOTAL 1.11 mg/dL (0.2-1.3); CALCIUM 8.5 mg/dL (8.5-10.1); CARBON DIOXIDE 30.1 mmol/L (21.0-32.0); MAGNESIUM - SERUM 1.9 mg/dL (1.8-2.4); POTASSIUM - SERUM 3.9 mmol/L (3.5-5.1); PROTEIN - SERUM 5.5 g/dL (6.4-8.2)
--- NOTE | 2019-10-02 18:48 | NUR ---
ALERT AND ORIENTED RESTING IN BED WITH EYES OPEN. NO C/O PAIN. NO S/S OF ACUTE DISTRESS NOTED. 2ND BAG OF PRBC INFUSING. DENIES ANY NEEDS AT THIS TIME. CALL LIGHT IN REACH. WILL CONTINUE TO MONITOR.
--- NOTE | 2019-10-02 18:50 | NUR ---
I have reviewed this patient and I concur with the Shift Assessment completed by the Licensed Practical Nurse today this shift.
--- NOTE | 2019-10-02 20:00 | NUR ---
ALERT RESTING IN BED REPORTS PAIN RELIEVED WITH PAIN MED GIVEN EARLIER, DENIES NEEDS AT THIS TIME, SEE SHIFT ASSESSMENT CALL LIGHT IN REACH
[2019-10-03] VITALS: BP 84/65
[2019-10-03 04:00] VITALS: BP 123/63
[2019-10-03 06:28] LABS: BASOPHILS 0.4 % (0-2); EOSINOPHILS 11.2 % (0-7); HEMATOCRIT 26.7 % (36.0-48.0); HEMOGLOBIN 8.5 g/dL (12-16); IMMATURE GRANULOCYTES 0.5 % (0-5); LYMPHOCYTES 20.4 % (15-50); MCH 27.3 pg (26.0-34.0); MCHC 31.8 g/dL (31.0-37.0); MCV 85.9 fL (80.0-100.0); MEAN PLATELET VOLUME 9.8 fL (7.4-10.4); MONOCYTES 13.7 % (2-11); NEUTROPHILS 53.8 % (40-80); PLATELET COUNT 131 10x3/uL (130-400); RBC 3.11 10x6/uL (4.00-5.40); WBC 5.6 10x3/uL (4.8-10.8)
[2019-10-03 06:52] LABS: ALBUMIN 2.4 g/dL (3.4-5.0); ANION GAP 9.1 mmol/L (8-16); BILIRUBIN - TOTAL 1.19 mg/dL (0.2-1.3); CALCIUM 7.9 mg/dL (8.5-10.1); CARBON DIOXIDE 25.8 mmol/L (21.0-32.0); CREATININE - SERUM 1.1 mg/dL (0.6-1.3); MAGNESIUM - SERUM 1.7 mg/dL (1.8-2.4); POTASSIUM - SERUM 3.9 mmol/L (3.5-5.1); PROTEIN - SERUM 5.4 g/dL (6.4-8.2)
--- NOTE | 2019-10-03 08:00 | NUR ---
PT CO OF PAIN. GIVEN PAIN MEDS PER EMAR. CL IN REACH. WCTM
[2019-10-03 08:49] VITALS: BP 106/49
--- NOTE | 2019-10-03 12:14 | NUR ---
PT ASSISTED ON/OFF BSC VIA DIANE, STEEL ERECTING PUSHER. WALKER SEEMED TO MAKE TRANSFERRING EASIER. CO OF PAIN 8 OUT OF 10. TREATED PER EMAR. CL IN REACH. PHONE FARMWORKER MACHINE IN REACH. WCTM
[2019-10-03 12:47] VITALS: BP 129/72
[2019-10-03 13:55] VITALS: Ht 157.5 cm; Wt 104.2 kg
--- NOTE | 2019-10-03 14:18 | NUR ---
PT SARKIS IN ROOM. ASSISTED TO BSC AND OFF. CL IN REACH. NO FURTHER NEEDS AT THIS TIME. WCPAOLA
[2019-10-03 16:00] VITALS: BP 110/60
--- NOTE | 2019-10-03 16:01 | NUR ---
Rehab Note- Acute Inpatient Rehab prescreen order received. The patient has [employer] insurance and will require a PreAuth prior to an inpatient acute rehab stay. SHe has a pending OT Eval that will be needed for PreAuth process. Also she will have to be willing to participate in the required 3hrs/day of therapy as she refused PT today. Will continue to follow at this time. THank you for this referral! Tata Brock RN Clinical Liaison, [facility] Rehab
--- NOTE | 2019-10-03 17:05 | NUR ---
PT ASLEEP. EASILY AWAKENED. NO NEEDS AT THIS TIME. WCTM
[2019-10-03 20:00] VITALS: BP 95/51
[2019-10-04] VITALS: BP 124/63
--- NOTE | 2019-10-04 00:53 | NUR ---
A&O X 4. PRIYA ASSIST TO BSC. PT VOIDED. REPORTS PAIN 10/ TO LLE. DRESSING CDI. IMMOBILIZER IN USE, NO FURTHER NEEDS VOICED, CTM.
--- NOTE | 2019-10-04 03:45 | NUR ---
I have reviewed this patient and I concur with the Shift Assessment completed by the Licensed Practical Nurse today this shift.
[2019-10-04 04:00] VITALS: BP 102/66
[2019-10-04 06:14] LABS: BASOPHILS 0.6 % (0-2); EOSINOPHILS 11.9 % (0-7); HEMATOCRIT 27.2 % (36.0-48.0); HEMOGLOBIN 8.3 g/dL (12-16); IMMATURE GRANULOCYTES 0.6 % (0-5); LYMPHOCYTES 19.1 % (15-50); MCH 26.4 pg (26.0-34.0); MCHC 30.5 g/dL (31.0-37.0); MCV 86.6 fL (80.0-100.0); MEAN PLATELET VOLUME 9.4 fL (7.4-10.4); MONOCYTES 14.9 % (2-11); NEUTROPHILS 52.9 % (40-80); PLATELET COUNT 141 10x3/uL (130-400); RBC 3.14 10x6/uL (4.00-5.40); RDW 17.1 % (11.5-14.5); WBC 4.8 10x3/uL (4.8-10.8)
[2019-10-04 06:37] LABS: ALBUMIN 2.3 g/dL (3.4-5.0); ANION GAP 10.1 mmol/L (8-16); BILIRUBIN - TOTAL 0.93 mg/dL (0.2-1.3); CARBON DIOXIDE 28.1 mmol/L (21.0-32.0); MAGNESIUM - SERUM 2.1 mg/dL (1.8-2.4); POTASSIUM - SERUM 4.2 mmol/L (3.5-5.1); PROTEIN - SERUM 4.9 g/dL (6.4-8.2)
[2019-10-04 06:48] LABS: BILIRUBIN NEGATIVE (NEGATIVE); GLUCOSE NEGATIVE (NEGATIVE); KETONE NEGATIVE (NEGATIVE); NITRITE NEGATIVE (NEGATIVE); UROBILINOGEN NORMAL (NORMAL)
[2019-10-04 06:50] LABS: BACTERIA FEW /hpf (NEGATIVE); EPITHELIAL CELLS 0-5 /hpf (0-5); RED CELLS - URINE 0-5 /hpf (0-5); WHITE CELLS - URINE 0-5 /hpf (NEGATIVE)
--- NOTE | 2019-10-04 07:31 | NUR ---
ALERT AND ORIENTED. LUNGS DIMINISHED TO BLL. HEART SOUNDS S1 AND S2 HEARD IN ALL JETT. BOWEL SOUNDS ACTIVE X 4. IV TO LEFT WRIST PATENT WITHOUT REDNESS. IV TO RIGHT HAND PATENT WITHOUT REDNESS. DENIES NEEDS. BED ALARM ON. CALL ESPINOSA AND PERSONAL ITEMS IN REACH. WILL CONTINUE TO MONITOR.
[2019-10-04 09:18] VITALS: BP 95/62
[2019-10-04 13:21] VITALS: BP 163/67
--- NOTE | 2019-10-04 15:41 | NUR ---
REQUESTED AND GIVEN PRN PAIN MEDICATION. DENIES FURTHER NEEDS.
[2019-10-04 16:35] VITALS: BP 123/69
--- NOTE | 2019-10-04 17:43 | NUR ---
PATIENT C/O SOB. O2 94% ON 1L O2. CALLED RT FOR PRN BREATHING TREATMENT.
[2019-10-04 20:00] VITALS: BP 124/58
--- NOTE | 2019-10-04 20:20 | NUR ---
MEDICATED WITH PHENERGAN FOR C/O NAUSEA.
--- NOTE | 2019-10-04 20:20 | NUR ---
LYING IN BED. ALERT AND ORIENTED X4. RESP EVEN AND NONLABORED. O2 @ 1L/NC. DRSG NOTED TO LT KNEE HAS OLD DRAINAGE. KNEE IMMOBILIZER IN USE. SCDS ON BILAT. REPORTS PROD COUGH WITH GREEN SPUTUM. NS @ 75 MLHR INFUSING IN LT WRIST AND SALINE LOCK NOTED TO RT HAND. REPORTS PAIN IN LT KNEE 9, MEDICATED WITH PERCOCET. BED ALARM ON. CL IN REACH.
--- NOTE | 2019-10-04 23:25 | NUR ---
MEDICATED WITH ZOFRAN FOR C/O NAUSEA.
[2019-10-05] VITALS: BP 148/93
--- NOTE | 2019-10-05 01:52 | NUR ---
RESTING QUIETLY. NO DISTRESS. CL IN REACH.
--- NOTE | 2019-10-05 03:40 | NUR ---
ASSISTED UP TO BSC TO VOID. PT STARTED CRYING FROM PAIN. MEDICATED WITH PERCOCET FOR C/O PAIN IN LT KNEE. ASSISTED BACK TO BED. BED ALARM ON. CL IN REACH.
[2019-10-05 04:00] VITALS: BP 114/69
--- NOTE | 2019-10-05 04:41 | NUR ---
RESTING NOW. RESP NONLABORED. NO DISTRESS. CL IN REACH.
[2019-10-05 06:09] LABS: BASOPHILS 0.5 % (0-2); EOSINOPHILS 9.9 % (0-7); HEMATOCRIT 27.8 % (36.0-48.0); HEMOGLOBIN 8.6 g/dL (12-16); IMMATURE GRANULOCYTES 0.5 % (0-5); LYMPHOCYTES 19.2 % (15-50); MCH 27.1 pg (26.0-34.0); MCHC 30.9 g/dL (31.0-37.0); MCV 87.7 fL (80.0-100.0); MEAN PLATELET VOLUME 9.3 fL (7.4-10.4); MONOCYTES 11.2 % (2-11); NEUTROPHILS 58.7 % (40-80); PLATELET COUNT 154 10x3/uL (130-400); RBC 3.17 10x6/uL (4.00-5.40); RDW 16.9 % (11.5-14.5); WBC 5.5 10x3/uL (4.8-10.8)
[2019-10-05 06:28] LABS: ALBUMIN 2.4 g/dL (3.4-5.0); ANION GAP 6.7 mmol/L (8-16); BILIRUBIN - TOTAL 0.81 mg/dL (0.2-1.3); CALCIUM 7.9 mg/dL (8.5-10.1); CARBON DIOXIDE 29.4 mmol/L (21.0-32.0); CREATININE - SERUM 1.1 mg/dL (0.6-1.3); MAGNESIUM - SERUM 1.9 mg/dL (1.8-2.4); POTASSIUM - SERUM 4.1 mmol/L (3.5-5.1); PROTEIN - SERUM 5.7 g/dL (6.4-8.2)
--- NOTE | 2019-10-05 07:54 | NUR ---
PATIENT ALERT AND ORIENTED. RESTING QUIETLY IN BED WITH EYES CLOSED. RESPIRATIONS EVEN NON LABORED. NO SIGNS OF DISTRESS NOTED. POST OP DAY 6. ELECTROLYTE PROTOCOL. O2 1L. SCDS. KNEE IMMOBILIXER ON LEFT KNEE. GLASSES. NORMAL SALINE LEFT WRIST 75ML/HR. SALINE LOCK RIGHT HAND. SCRICT I&O. DAILY WEIGHT. DENIES FURTHER NEEDS. SIDE RAILS UP X4. CALL LIGHT IN REACH. WILL CONTINUE TO MONITOR FOR SAFETY.
[2019-10-05 09:38] VITALS: BP 104/55
[2019-10-05 12:59] VITALS: BP 115/61
--- NOTE | 2019-10-05 15:31 | NUR ---
PATIENT ALERT AND ORIENTED WATCHING TV. RESPIRATIONS EVEN NON LABORED. NO SIGNS OF DISTRESS NOTED. DENIES FURTHER NEEDS. SIDE RAILS UP X4. CALL LIGHT IN REACH. WILL CONTINUE TO MONITOR FOR SAFETY.
[2019-10-05 15:50] VITALS: BP 114/66
--- NOTE | 2019-10-05 17:38 | NUR ---
I have reviewed this patient and I concur with the Shift Assessment completed by the Licensed Practical Nurse today this shift.
--- NOTE | 2019-10-05 19:17 | NUR ---
PATIENT ALERT AND ORIENTED. RESTING QUIETLY IN BED WITH EYES OPEN. RESPIRATIONS EVEN NON LABORED. NO SIGNS OF DISTRESS NOTED. DENIES FURTHER NEEDS. SIDE RAILS UP X4. CALL LIGHT IN REACH. WILL CONTINUE TO MONITOR FOR SAFETY.
--- NOTE | 2019-10-05 19:40 | NUR ---
LYING IN BED. ALERT AND ORIENTED X4. RESP NONLABORED. O2 @ 1L/NC. REPORTS PROD COUGH WITH GREEN SPUTUM. RATES PAIN IN LT KNEE 8. DRSG NOTED WITH KNEE IMMOBILIZER IN USE. EDEMA NOTED TO BLE. REPORTS NAUSEA. STATES SHE IS PASSING GAS. NS @ 75 ML/HR INFUSING IN LT WRIST. SALINE LOCK NOTED TO RT HAND. ALERT AND ORIENTED X4. SR ELEVATED X2. CL IN REACH. BED ALARM ON.
[2019-10-05 20:00] VITALS: BP 121/64
--- NOTE | 2019-10-05 20:10 | NUR ---
MEDICATED WITH PERCOCET FOR C/O KNEE PAIN AND PHENERGAN FOR C/O NAUSEA. CL IN REACH.
--- NOTE | 2019-10-06 03:59 | NUR ---
HAS RESTED WELL SO FAR THIS SHIFT. NO DISTRESS. CL IN REACH.
[2019-10-06 04:00] VITALS: BP 150/91
[2019-10-06 05:19] LABS: BASOPHILS 0.8 % (0-2); EOSINOPHILS 12.1 % (0-7); HEMATOCRIT 28.7 % (36.0-48.0); HEMOGLOBIN 8.7 g/dL (12-16); IMMATURE GRANULOCYTES 0.6 % (0-5); LYMPHOCYTES 21.8 % (15-50); MCH 26.9 pg (26.0-34.0); MCHC 30.3 g/dL (31.0-37.0); MCV 88.6 fL (80.0-100.0); MEAN PLATELET VOLUME 9.2 fL (7.4-10.4); MONOCYTES 10.3 % (2-11); NEUTROPHILS 54.4 % (40-80); RBC 3.24 10x6/uL (4.00-5.40); RDW 17.1 % (11.5-14.5); WBC 5.1 10x3/uL (4.8-10.8)
[2019-10-06 05:22] LABS: ALBUMIN 2.5 g/dL (3.4-5.0); ANION GAP 9.3 mmol/L (8-16); BILIRUBIN - TOTAL 0.8 mg/dL (0.2-1.3); CALCIUM 8.4 mg/dL (8.5-10.1); CREATININE - SERUM 0.9 mg/dL (0.6-1.3); POTASSIUM - SERUM 4.3 mmol/L (3.5-5.1); PROTEIN - SERUM 5.2 g/dL (6.4-8.2)
[2019-10-06 05:30] LABS: PLATELET COUNT 195 10x3/uL (130-400)
[2019-10-06 08:00] VITALS: BP 151/87
[2019-10-06 11:00] VITALS: BP 127/78
--- NOTE | 2019-10-06 12:11 | NUR ---
PT UP IN CHAIR. CL IN REACH. SOME NAUSEA. WCTM
--- NOTE | 2019-10-06 13:45 | NUR ---
Nutrition follow-up: Diet: Regular low sodium PO intkae 70% average of last 9 meals Labs reviewed Wt: 229# DC to rehab soon RDN following.
[2019-10-06 16:40] VITALS: BP 148/91
--- NOTE | 2019-10-06 19:00 | NUR ---
WAYLON REMOVED PER Evy HOOVER APN. 8.5 ML REMOVED FROM BALLOON. TOLERATED WELL. CL IN REACH. PT UPSET BUT WILL NOT TELL ME WHY. REQUESTS THAT I LEAVE. STATED NO ONE SHOULD BE TREATED SUCH. I EXPLAINED TO HER SHE HAD HAD A BM THAT I WAS NOT GOING TO LEAVE HER IN HER OWN EXCREMENT. SHE STARTED YELLING FOR "RYAN" STATED THAT SHE WAS GOING TO SLEEP AND THAT I SHOULD JUST GO AWAY. CL IN REACH.
[2019-10-06 20:00] VITALS: BP 141/85
--- NOTE | 2019-10-06 20:01 | NUR ---
REC'D.IN BED DURING CHGE OF SHIFT WALKING ROUNDS SITTING POSITION. FLEX HINGED KNEE BRACE INTACT LEFT LEG FOOT PINK, WARM PEDAL PULSE PRESENT SMALL AMOUNT NUMBNESS AND SWELLING ELEVATED ON PILLOW WILL CONTINUE TO MONITOR FOR ANY CHGES IN NEUROVASCULAR STATUS AND FOLLOW CURRENT PLAN OF CARE.
[2019-10-07] VITALS: BP 133/75
[2019-10-07 04:00] VITALS: BP 136/61
--- NOTE | 2019-10-07 05:26 | NUR ---
I have reviewed this patient and I concur with the Shift Assessment completed by the Licensed Practical Nurse today this shift.
--- NOTE | 2019-10-07 07:34 | NUR ---
DID WALKING ROUNDS, PT LAYING IN BED WATCHING TV, PT IS A&O, PT DENIES ANY NEEDS AT THIS TIME, IV INFUSING WITHOUT DIFFICULTY, SITE CLEAR, KNEE IMMOBILIZER IN USE ON LEFT LEG, DRESSING SECURE WITH OLD DRAINAGE NOTED, NO OTHER NEEDS VOICED, SR UP X2, CALL LIGHT IN REACH, BED LOW AND LOCKED, WILL CONTINUE TO MONITOR
[2019-10-07 09:15] VITALS: BP 147/88
--- NOTE | 2019-10-07 09:25 | NUR ---
GAVE PT SCHEDULED MEDS, ALSO GAVE PERCOCET 1 TAB FOR PAIN AND ZOFRAN FOR NAUSEA, NO OTHER NEEEDS VOICED, CALL LIGHT IN REACH, SR UP X2, WILL CONTINUE TO MONITOR
[2019-10-07 11:48] LABS: MAGNESIUM - SERUM 1.8 mg/dL (1.8-2.4); PHOSPHOROUS 3.9 mg/dL (2.5-4.9); POTASSIUM - SERUM 3.7 mmol/L (3.5-5.1)
--- NOTE | 2019-10-07 12:28 | NUR ---
HUNG VANCOMYCIN, TROUGH 18.3, SITE CLEAR, NO OTHER NEEDS VOICED
[2019-10-07 13:03] VITALS: BP 128/80
[2019-10-07] MEDS ORDERED: PERCOCET 10-321 EAC1 PO (13:16)
[2019-10-07] MEDS ORDERED: LEVOFLOXACIN500 MG PO (13:16)
--- NOTE | 2019-10-07 14:11 | NUR ---
PT JUST FINISHED WITH THERAPY, PT REQUEST PAIN AND NAUSEA MEDS, GAVE PT PERCOCET 10MG PO FOR PAIN, RATES PAIN 10/19, ALSO GAVE ZOFRAN FOR NAUSEA, NO OTHER NEEDS VOICED
--- NOTE | 2019-10-07 14:14 | MORECARE ---
CASE MANAGEMENT DISCHARGE SUMMARY PATIENT: IKER JOYA UNIT: [id number] ADM DATE: 10/02/19 AGE: 68 : 52 SEX: F ROOM/BED: D.2209 AUTHOR: VALENTINA SERRA PHYSICIAN: REFERRING PHYSICIAN: JORDAN BRISENO MD DATE OF SERVICE: 10/07/19 Discharge Plan Patient Name: IKER JOYA Facility: [facility]:[place] : 1950 Planned Disposition: Home with Home Health Anticipated Discharge Date: Discharge Date: Expected LOS: Initial Reviewer: [email or web address] Initial Review Date: 10/02/2019 Generated: 10/07/19 3:13 pm External [facility]iders [facility] Next Contact Date: Service Request Date: Service Type: Resolution: Reviewer: Comments: Patient Name: IKER JOYA Page [phone] at 1414 All edits/amendments must be made on the electronic document DICTATION DATE: 10/07/19 1413 CATH LAB RADIOLOGICAL TECHNOLOGIST: AFTAB 10/07/19 1413 RPT#: [id number] DC DATE: STATUS: ADM IN [facility] [address] [place] [address] END OF REPORT
--- NOTE | 2019-10-07 14:24 | MORECARE ---
CASE MANAGEMENT DISCHARGE SUMMARY PATIENT: IKER JOYA UNIT: [id number] ADM DATE: 10/02/19 AGE: 68 : 52 SEX: F ROOM/BED: D.2209 AUTHOR: VALENTINA SERRA PHYSICIAN: REFERRING PHYSICIAN: JORDAN BRISENO MD DATE OF SERVICE: 10/07/19 Discharge Plan Patient Name: IKER JOYA [facility] [facility] 1950 Planned Disposition: Home with Home Health Anticipated Discharge Date: Discharge Date: Expected LOS: Initial Reviewer: [email or web address] Initial Review Date: 10/02/2019 Generated: 10/07/19 3:24 pm DCPIA - Discharge Planning Initial Assessment Updated by [email or web address]: Filomena Newman on 10/07/19 2:16 pm * Is the patient Alert and Oriented? Yes * How many steps to enter\exit or inside your home? RAMP * PCP WILLIS * [facility] * Preadmission Environment Home with Family * ADLs Independent * Equipment Bedside Commode Rolling Walker Shower Chair * Other Equipment KNEE BRACE * List name and contact numbers for known caregivers / representatives who currently or will assist patient after discharge: SABRINA ARREDONDO [phone] * Verbal permission to speak to the caregivers and representatives has been obtained from the patient. Yes * Community resources currently utilized Home Health * Please name any agencies selected above. [facility] , [facility] * Additional services required to return to the preadmission environment? Yes * Can the patient safely return to the preadmission environment? Yes * Has this patient been hospitalized within the prior 30 days at any hospital? Yes Last DP export: 10/07/19 1:13 p Patient Name: IKER JOYA Page [id number] at 1424 All edits/amendments must be made on the electronic document DICTATION DATE: 10/07/191423 PLUG MAKING OPERATOR: AFTAB 10/07/19 142 RPT#: [id number] DC DATE: STATUS: ADM IN [facility] [address] [place] [address] END OF REPORT
--- NOTE | 2019-10-07 14:33 | MORECARE ---
CASE MANAGEMENT DISCHARGE SUMMARY PATIENT: IKER JOYA UNIT: [id number] ADM DATE: 10/02/19 AGE: 68 : 52 SEX: F ROOM/BED: D.2208 AUTHOR: VALENTINA SERRA PHYSICIAN: REFERRING PHYSICIAN: JORDAN BRISENO MD DATE OF SERVICE: 10/07/19 Discharge Plan Patient Name: IKER JOYA Facility: [facility]:[place] : 1950 Planned Disposition: Home with Home Health Anticipated Discharge Date: Discharge Date: Expected LOS: Initial Reviewer: [id number] Initial Review Date: 10/02/2019 Generated: 10/07/19 3:33 pm Comments DCP- Discharge Planning Updated by [id number]: Filomena Newman on 10/07/19 1:[address] Patient Name: IKER JOYA Admission Status: ER Accout number: [id number] Admission Date: 10-02-2019 : 1950 Admission Diagnosis:INFECT/INFLM REACTION DUE TO INTERNAL LEFT KNEE PROSTH, Attending: JORDAN BRISENO Current LOS: 5 Anticipated DC Date: Planned Disposition: Home with Home Health Primary Insurance: [employer] CHOICE PPO [facility] Discharge Planning Comments: CM met with patient to complete initial dc planning assessment. CM educated patient on the CM role and verbal consent given by patient to complete assessment. Patient lives at home with her family where she was independent with her care. At discharge patient plans to return home and feels this is a safe discharge. CM discussed availability of home health, rehab services, and medical equipment. She is a readmit. Her last stay she wanted [facility], but this time she said that she told me wrong and she wanted [facility] . I have contacted [facility] and they will see patient either Sunday or Sunday. Patient has a walker, shower chair, BSC, and knee brace. Her family will be her motor bus driver home. BLANKA signed and placed in chart. IMM also signed. Patient stated that her breathing was better and she felt good in going home. She is not on any O2. Patient denied known discharge needs at this time. CM will continue to follow and will assist as needed with dc plans/needs. Wheel Installer: Filomena Newman DCPIA - Discharge Planning Initial Assessment Updated by [email or web address]: Filomena Newman on 10/07/19 2:16 pm * Is the patient Alert and Oriented? Yes * How many steps to enter\exit or inside your home? RAMP * PCP WILLIS * [facility] * Preadmission Environment Home with Family * ADLs Independent * Equipment Bedside Commode Rolling Walker Shower Chair * Other Equipment KNEE BRACE * List name and contact numbers for known caregivers / representatives who currently or will assist patient after discharge: SABRINA ARREDONDO [phone] * Verbal permission to speak to the caregivers and representatives has been obtained from the patient. Yes * Community resources currently utilized Home Health * Please name any agencies selected above. [facility], [facility] * Additional services required to return to the preadmission environment? Yes * Can the patient safely return to the preadmission environment? Yes * Has this patient been hospitalized within the prior 30 days at any hospital? Yes Coverage Notice Reviewer: [id number] Dominick Newman Notice Issued Date-Time: 10/07/2019 13:45 Notice Type: IM Discharge Notice Notice Delivered To: Patient Relationship to Patient: Video Game Designer Name: Delivery Method: HAND - Hand Delivered Loly Days: Prior Verbal Notification: Recipient Understood Notice: Yes Recipient Signature: Yes Med Rec Note Co-signed by Attending: Coverage Notice Comment: Reviewer: [id number] Dominick Newman Notice Issued Date-Time: 10/07/2019 13:45 Notice Type: Patient Choice Letter Notice Delivered To: Patient Relationship to Patient: Video Game Designer Name: Delivery Method: HAND - Hand Delivered Loly Days: Prior Verbal Notification: Recipient Understood Notice: Yes Recipient Signature: Yes Med Rec Note Co-signed by Attending: Coverage Notice Comment: [facility] did not want [facility] Last DP export: 10/07/19 1:24 p Patient Name: IKER JOYA Page [id number] at 1433 All edits/amendments must be made on the electronic document DICTATION DATE: 10/07/19 1433 PLANNING INTERN: AFTAB 10/07/19 143 RPT#: [id number] DC DATE: STATUS: ADM IN [facility] [address] [place] [address] END OF REPORT
--- NOTE | 2019-10-07 14:46 | NUR ---
OT NOTE: PT SEEN IN PM..REPORTED PAIN WAS MUCH BETTER THAN AM BECAUSE THEY GAVE HER A SHOT OF TORIDAL. PTS IMMOBILIZER HAD SLID DOWN LEG AGAIN.. RE ADJUSTED AND MOVED TO PROPER LOCATION ON LEG. BED MOB WITH MIN ASSIST; SIT TO STAND WITH WALKER AND MIN ASSIST; AMB IN ROOM WITH CGA WITH USE OF WALKER. BACK TO BED WITH MIN ASSIST. SINGH ROBERTS, OTR/L [phone]
--- NOTE | 2019-10-07 15:47 | NUR ---
OT NOTE: PT REPORTED INCREASE L PATELLA PAIN AND SWELLING. NURSING AWARE. PT COMPLETED BUE AROM EXS TOLERATED. PT COMPLETED POSITIONING WITH MOD A . PT COMPLETED FACE HYGIENE AND HAIR GROOMING WITH SETUP. PT PAIN IS A BARRIER TO FUNCTIONAL MVMT. [phone] THANK YOU,VILMA VALDEZ
--- NOTE | 2019-10-07 16:47 | NUR ---
WENT OVER PT DISCHARGE INSTRUCTIONS, ALL QUESTIONS ANSWERED, ALL PERSONAL BELONGINGS RETURNED TO PT, REMOVED IV, CATHLON INTACT, PT CALLED DAUGHTER TO PICK HER UP
--- NOTE | 2019-10-08 13:03 | MORECARE ---
CASE MANAGEMENT DISCHARGE SUMMARY PATIENT: IKER JOYA UNIT: [id number] ADM DATE: 10/02/19 AGE: 68 : 52 SEX: F ROOM/BED: D.2202 AUTHOR: MARYSE,DOC PHYSICIAN: REFERRING PHYSICIAN: JORDAN BRISENO MD DATE OF SERVICE: 10/08/19 Discharge Plan Patient Name: IKER JOYA Facility: [facility]:[place] : 1950 Planned Disposition: Home with Home Health Anticipated Discharge Date: Discharge Date: 10/07/2019 Expected LOS: 0 Initial Reviewer: [email or web address] Initial Review Date: 10/02/2019 Generated: 10/08/19 2:02 pm Comments DCP- Discharge Planning Updated by [email or web address]: Filomena Newman on 10/07/19 1:[address] Patient Name: IKER JOYA Admission Status: ER Accout number: [id number] Admission Date: 10-02-2019 : 1950 Admission Diagnosis:INFECT/INFLM REACTION DUE TO INTERNAL LEFT KNEE PROSTH, Attending: JORDAN BRISENO Current LOS: 5 Anticipated DC Date: Planned Disposition: Home with Home Health Primary Insurance: [employer] CHOICE PPO [facility] Discharge Planning Comments: CM met with patient to complete initial dc planning assessment. CM educated patient on the CM role and verbal consent given by patient to complete assessment. Patient lives at home with her family where she was independent with her care. At discharge patient plans to return home and feels this is a safe discharge. CM discussed availability of home health, rehab services, and medical equipment. She is a readmit. Her last stay she wanted [facility], but this time she said that she told me wrong and she wanted [facility] . I have contacted [facility] and they will see patient either Sunday or Sunday. Patient has a walker, shower chair, BSC, and knee brace. Her family will be her trolley coach driver home. BLANKA signed and placed in chart. IMM also signed. Patient stated that her breathing was better and she felt good in going home. She is not on any O2. Patient denied known discharge needs at this time. CM will continue to follow and will assist as needed with dc plans/needs. Apprenticeship Representative: Filomena Newman DCPIA - Discharge Planning Initial Assessment Updated by [email or web address]: Filomena Newman on 10/07/19 2:16 pm * Is the patient Alert and Oriented? Yes * How many steps to enter\exit or inside your home? RAMP * PCP WILLIS * Pharmacy [facility] [address] * Preadmission Environment Home with Family * ADLs Independent * Equipment Bedside Commode Rolling Walker Shower Chair * Other Equipment KNEE BRACE * List name and contact numbers for known caregivers / representatives who currently or will assist patient after discharge: SABRINA ARREDONDO [phone] * Verbal permission to speak to the caregivers and representatives has been obtained from the patient. Yes * Community resources currently utilized Home Health * Please name any agencies selected above. [facility], [facility] * Additional services required to return to the preadmission environment? Yes * Can the patient safely return to the preadmission environment? Yes * Has this patient been hospitalized within the prior 30 days at any hospital? Yes Coverage Notice Reviewer: [id number] Dominick Newman Notice Issued Date-Time: 10/07/2019 13:45 Notice Type: IM Discharge Notice Notice Delivered To: Patient Relationship to Patient: Sheriff'S Officer Name: Delivery Method: HAND - Hand Delivered Loly Days: Prior Verbal Notification: Recipient Understood Notice: Yes Recipient Signature: Yes Med Rec Note Co-signed by Attending: Coverage Notice Comment: Reviewer: [id number] Dominick Newman Notice Issued Date-Time: 10/07/2019 13:45 Notice Type: Patient Choice Letter Notice Delivered To: Patient Relationship to Patient: Sheriff'S Officer Name: Delivery Method: HAND - Hand Delivered Loly Days: Prior Verbal Notification: Recipient Understood Notice: Yes Recipient Signature: Yes Med Rec Note Co-signed by Attending: Coverage Notice Comment: [facility] did not want [facility] Last DP export: 10/07/19 1:33 p Patient Name: IKER JOYA Page [phone] at 1303 All edits/amendments must be made on the electronic document DICTATION DATE: 10/08/19 1302 LETTER STAMPING MACHINE OPERATOR: AFTAB 10/08/19 1302 RPT#: [id number] DC DATE:10/07/19 STATUS: DIS IN [place] [id number] [place] [address] END OF REPORT
== END 2019-10-07 17:32 | disposition home health service (06) | DRG 561 ==
LOC: D.ER 22:32 → D.MS 10-02 01:50
PROVIDERS: Emergency Medicine; Family Medicine; ADMIT Orthopaedic Surgery; ATTEND Orthopaedic Surgery
DX: T84.54XA Infection and inflammatory reaction due to internal left knee prosthesis, initial encounter (principal); M19.90 Unspecified osteoarthritis, unspecified site; D64.9 Anemia, unspecified; F32.9 Major depressive disorder, single episode, unspecified; D69.6 Thrombocytopenia, unspecified; G89.29 Other chronic pain; Z96.652 Presence of left artificial knee joint; R50.9 Fever, unspecified

== ENCOUNTER → 2019-10-29 12:17 | Outpatient (CLI) | payer MEDICARE, OTHER ==
[2019-10-03 13:55] VITALS: BMI 34.7
[~2019-10-29 12:17] MED LIST changes: +LEVOFLOXACIN500 MG PO
[2019-10-29 20:20] LABS: BASOPHILS 0.6 % (0-2); EOSINOPHILS 4.8 % (0-7); HEMATOCRIT 40.2 % (36.0-48.0); HEMOGLOBIN 12.5 g/dL (12-16); IMMATURE GRANULOCYTES 0.2 % (0-5); LYMPHOCYTES 18.4 % (15-50); MCH 26.5 pg (26.0-34.0); MCHC 31.1 g/dL (31.0-37.0); MCV 85.4 fL (80.0-100.0); MEAN PLATELET VOLUME 9.7 fL (7.4-10.4); MONOCYTES 8.6 % (2-11); NEUTROPHILS 67.4 % (40-80); RBC 4.71 10x6/uL (4.00-5.40); RDW 15.3 % (11.5-14.5)
[2019-10-29 20:21] LABS: PLATELET COUNT 271 10x3/uL (130-400)
[2019-10-29 21:36] LABS: ERYTHROCYTE SEDIMENTATION RATE 43 mm/hr (0-30)
== END | disposition home or self-care (01) ==
LOC: D.US 12:17
PROVIDERS: ATTEND Clinical Nurse Specialist Family Health
DX: R22.42 Localized swelling, mass and lump, left lower limb (principal); M25.562 Pain in left knee

== ENCOUNTER → 2019-11-20 13:27 | Outpatient (CLI) | payer MEDICARE, OTHER ==
[2019-10-03 13:55] VITALS: BMI 34.7
== END | disposition home or self-care (01) ==
LOC: D.MRI 13:27
PROVIDERS: ATTEND Orthopaedic Surgery
DX: M25.551 Pain in right hip (principal)

== ENCOUNTER 2019-11-20 16:27 | Inpatient (IN) | payer MEDICARE, OTHER ==
[~2019-11-20] VITALS: Ht 157.5 cm; Wt 90.9 kg
--- NOTE | 2019-11-20 16:50 | NUR ---
PT ARRIVES TO ROOM VIA WHEELCHAIR ESCORTED BY FAMILY MEMBER AND HOSPITAL STAFF. PT IS AAO X 4 AND ANSWERS ALL QUESTIONS APPROPRIATLEY. PT STATES THAT SHE WAS "TRYING TO GET ON OUR PORCH SWING AND FELL DOWN". PT REPORTS THAT SHE HAS HAD A RECENT KNEE REPLACEMENT SURGERY PERFORMED AT THIS HOSPITAL. PT STATES "I HIT MY HEAD REAL HARD AND HAVE A BIG KNOT ON THE BACK OF IT". PT DENIES PRESENCE OF HEAD PAIN BUT REPORTS PAIN TO RIGHT HIP AND RLE. PT DENIES PRESENCE OF NUMBNESS/TINGLING TO BUE AND BLE. 22G PIV TO RIGHT HAND X 1 ATTEMPT. PT TOLERATED WELL. ALL ADMISSION REQUIREMENTS COMPLETED. FALL PRECAUTIONS IN PLACE. PT EDUCATED ON HOSPITAL POLICY AND VISITOR RESTRICTIONS. PT VERBALIZES UNDERSTANDING. PT DENIES PRESENCE OF N/V AT THIS TIME. BED IS IN THE LOWEST POSITION. CALL LIGHT AND BEDSIDE TABLE ARE WITHIN REACH. INCENTIVE SPIROMETER AT BEDSIDE AND ENCOURAGED. PT DENIES FURTHER NEEDS. WILL CONT TO MONITOR.
[2019-11-20 17:00] VITALS: BP 127/70
[2019-11-20 17:05] VITALS: BMI 36.6
[2019-11-20 18:05] LABS: HEMATOCRIT 38.3 % (36.0-48.0); HEMOGLOBIN 12.2 g/dL (12-16); MCH 26.3 pg (26.0-34.0); MCHC 31.9 g/dL (31.0-37.0); MCV 82.5 fL (80.0-100.0); MEAN PLATELET VOLUME 8.8 fL (7.4-10.4); RBC 4.64 10x6/uL (4.00-5.40); RDW 15.3 % (11.5-14.5); WBC 6.3 10x3/uL (4.8-10.8)
[2019-11-20 18:18] LABS: ANION GAP 9.1 mmol/L (8-16); CARBON DIOXIDE 29.5 mmol/L (21.0-32.0); CREATININE - SERUM 1.1 mg/dL (0.6-1.3); POTASSIUM - SERUM 3.6 mmol/L (3.5-5.1)
[2019-11-20 20:00] VITALS: BP 119/59
[2019-11-20 23:42] VITALS: BP 104/71
[2019-11-21 04:00] VITALS: BP 108/70
[2019-11-21 08:41] VITALS: Ht 157.5 cm; Wt 90.9 kg
[2019-11-21 09:07] VITALS: BP 132/74
[2019-11-21 12:31] VITALS: BP 128/76
[2019-11-21 17:31] VITALS: BP 114/67
[2019-11-21 22:24] VITALS: BP 102/76
[2019-11-22 01:13] VITALS: BP 100/62
[2019-11-22 06:14] VITALS: BP 116/70
[2019-11-22 09:50] VITALS: BP 130/80
[2019-11-22 13:12] VITALS: BP 131/59
[2019-11-22 16:00] VITALS: BP 125/70
--- NOTE | 2019-11-22 20:07 | NUR ---
ASSUMED CARE OF PATIENT AT 1900, PATIENT RESTING QUIETLY WATCHING TV AND TALKING ON PHONE, NO DISTRESS NOTED, DENIES NEEDS AT THIS TIME, WILL CONTINUE TO MONITOR PATIENT, CALL LIGHT WITHIN REACH
[2019-11-22 21:14] VITALS: BP 131/89
[2019-11-23 01:21] VITALS: BP 126/72
[2019-11-23 06:17] VITALS: BP 120/93
[2019-11-23 08:00] VITALS: BP 130/75
[2019-11-23 12:18] VITALS: BP 126/69
[2019-11-23 16:26] VITALS: BP 144/87
--- NOTE | 2019-11-23 18:37 | NUR ---
IV INFILTRATED TO RIGHT HAND. REMOVED WITH TIP INTACT. RESITED TO LEFT WRIST AFTER TWO ATTEMPTS WITH 22 GAUGE.
[2019-11-23 22:11] VITALS: BP 129/72
[2019-11-24 01:38] VITALS: BP 130/43
[2019-11-24 05:43] VITALS: BP 124/70
--- NOTE | 2019-11-24 07:58 | NUR ---
LAYING IN BED WATCHING TV. NO ACUTE DISTRESS NOTED. BED IN LOWEST POSITION, LOCKED, SIDE RAILS UP X2. NEEDS ANTICIPATED AND MET. WILL CONTINUE TO MONITOR
[2019-11-24 09:11] VITALS: BP 127/88
[2019-11-24 12:25] VITALS: BP 114/64
--- NOTE | 2019-11-24 12:56 | MORECARE ---
CASE MANAGEMENT DISCHARGE SUMMARY PATIENT: IKER JOYA UNIT: [id number] ADM DATE: 11/20/19 AGE: 69 : 52 SEX: F ROOM/BED: D.2218 AUTHOR: VALENTINA SERRA PHYSICIAN: REFERRING PHYSICIAN: JORDAN BRISENO MD DATE OF SERVICE: 11/24/19 Discharge Plan Patient Name: IKER JOYA [facility] : 1950 Planned Disposition: Home with Home Health Anticipated Discharge Date: Discharge Date: Expected LOS: Initial Reviewer: [id number] Initial Review Date: 11/20/2019 Generated: 11/24/19 1:56 pm Coverage Notice Reviewer: [id number] Dominick Newman Notice Issued Date-Time: 11/24/2019 12:15 Notice Type: IM Discharge Notice Notice Delivered To: Patient Relationship to Patient: Communication Clerk Name: Delivery Method: HAND - Hand Delivered Loly Days: Prior Verbal Notification: Recipient Understood Notice: Yes Recipient Signature: Yes Med Rec Note Co-signed by Attending: Coverage Notice Comment: IMM SERVED AND EXPLAINED Reviewer: [id number] Dominick Newman Notice Issued Date-Time: 11/24/2019 12:15 Notice Type: Patient Choice Letter Notice Delivered To: Patient Relationship to Patient: Communication Clerk Name: Delivery Method: HAND - Hand Delivered Loly Days: Prior Verbal Notification: Recipient Understood Notice: Yes Recipient Signature: Yes Med Rec Note Co-signed by Attending: Coverage Notice Comment: [facility] Patient Name: IKER JOYA Page [id number] at 1256 All edits/amendments must be made on the electronic document DICTATION DATE: 11/24/19 1256 END FRAZER: AFTAB 11/24/19 1256 RPT#: [id number] DC DATE: STATUS: ADM IN [facility] [address] [place] [address] END OF REPORT
--- NOTE | 2019-11-24 13:04 | MORECARE ---
CASE MANAGEMENT DISCHARGE SUMMARY PATIENT: IKER JOYA UNIT: [id number] ADM DATE: 11/20/19 AGE: 69 : 52 SEX: F ROOM/BED: D.2218 AUTHOR: MARYSE,DOC PHYSICIAN: REFERRING PHYSICIAN: JORDAN BRISENO MD DATE OF SERVICE: 11/24/19 Discharge Plan Patient Name: IKER JOYA Facility: [facility]:[place] : 1950 Planned Disposition: Home with Home Health Anticipated Discharge Date: Discharge Date: Expected LOS: Initial Reviewer: [id number] Initial Review Date: 11/20/2019 Generated: 11/24/19 2:03 pm Comments DCP- Discharge Planning Updated by [id number]: Filomena Newman on 11/24/19 12:[address] Patient Name: IKER JOYA Admission Status: Elective Accout number: [id number] Admission Date: 11-20-2019 : 1950 Admission Diagnosis:UNSP FRACTURE OF SACRUM, INIT ENCNTR FOR CLOSED FRACTUR Attending: JORDAN BRISENO Current LOS: 4 Anticipated DC Date: Planned Disposition: Home with Home Health Primary Insurance: HU[employer] CHOICE PPO [facility] Discharge Planning Comments: CM met with patient to complete initial dc planning assessment. CM educated patient on the CM role and verbal consent given by patient to complete assessment. Patient lives at home with her , daughter and granddaughter. At discharge patient plans to return home and feels this is a safe discharge. CM discussed availability of home health, rehab services, and medical equipment. She said she is current with [facility]. She has a walker, bsc, shower chair, ramps, she is barrowing a wheelchair from someone. She stated that her new home is handicap accessible. [facility] served and explained. I will send the referral to [facility]. I spoke with Kavin at [facility], Patient denied known discharge needs at this time. CM will continue to follow and will assist as needed with dc plans/needs. Principal Librarian: Filomena Newman DCPIA - Discharge Planning Initial Assessment Updated by [id number]: Filomena Newman on 11/24/19 12:57 pm * Is the patient Alert and Oriented? Yes * How many steps to enter\exit or inside your home? RAMP * PCP WILLIS * [facility] * Preadmission Environment Home with Family * ADLs Partial Dependent * Partial ADLs (Assistance needed) Ambulation Bathing * Equipment Bedside Commode Elevated Toliet Seat Rolling Walker Shower Chair Walker Wheelchair * List name and contact numbers for known caregivers / representatives who currently or will assist patient after discharge: SARKIS JOYA (SPOUSE) [phone] * Verbal permission to speak to the caregivers and representatives has been obtained from the patient. N/A * Community resources currently utilized None * Additional services required to return to the preadmission environment? Yes * Can the patient safely return to the preadmission environment? Yes * Has this patient been hospitalized within the prior 30 days at any hospital? Yes Coverage Notice Reviewer: [id number] Dominick Newman Notice Issued Date-Time: 11/24/2019 12:15 Notice Type: IM Discharge Notice Notice Delivered To: Patient Relationship to Patient: Factory Expert Name: Delivery Method: HAND - Hand Delivered Loly Days: Prior Verbal Notification: Recipient Understood Notice: Yes Recipient Signature: Yes Med Rec Note Co-signed by Attending: Coverage Notice Comment: IMM SERVED AND EXPLAINED Reviewer: [id number] Dominick Newman Notice Issued Date-Time: 11/24/2019 12:15 Notice Type: Patient Choice Letter Notice Delivered To: Patient Relationship to Patient: Factory Expert Name: Delivery Method: HAND - Hand Delivered Loly Days: Prior Verbal Notification: Recipient Understood Notice: Yes Recipient Signature: Yes Med Rec Note Co-signed by Attending: Coverage Notice Comment: [facility] Last DP export: 11/24/19 11:56 a Patient Name: IKER JOYA Page [phone] at 1304 All edits/amendments must be made on the electronic document DICTATION DATE: 11/24/19 1304 MONITORING AND EVALUATION ADVISOR: AFTAB 11/24/19 1304 RPT#: [id number] DC DATE: STATUS: ADM IN [facility] [address] [place] [address] END OF REPORT
--- NOTE | 2019-11-24 13:14 | MORECARE ---
CASE MANAGEMENT DISCHARGE SUMMARY PATIENT: IKER JOYA UNIT: [id number] ADM DATE: 11/20/19 AGE: 69 : 52 SEX: F ROOM/BED: D.2218 AUTHOR: MARYSE,DOC PHYSICIAN: REFERRING PHYSICIAN: JORDAN BRISENO MD DATE OF SERVICE: 11/24/19 Discharge Plan Patient Name: IKER JOYA [facility]:[place] : 1950 Planned Disposition: Home with Home Health Anticipated Discharge Date: Discharge Date: Expected LOS: Initial Reviewer: [id number] Initial Review Date: 11/20/2019 Generated: 11/24/19 2:13 pm Comments DCP- Discharge Planning Updated by [id number]: Filomena Newman on 11/24/19 12:[address] Patient Name: IKER JOYA Admission Status: Elective Accout number: [id number] Admission Date: 11-20-2019 : 1950 Admission Diagnosis:UNSP FRACTURE OF SACRUM, INIT ENCNTR FOR CLOSED FRACTUR Attending: JORDAN BRISENO Current LOS: 4 Anticipated DC Date: Planned Disposition: Home with Home Health Primary Insurance: [employer] CHOICE PPO [facility] Discharge Planning Comments: CM met with patient to complete initial dc planning assessment. CM educated patient on the CM role and verbal consent given by patient to complete assessment. Patient lives at home with her , daughter and granddaughter. At discharge patient plans to return home and feels this is a safe discharge. CM discussed availability of home health, rehab services, and medical equipment. She said she is current with [facility]. She has a walker, bsc, shower chair, ramps, she is barrowing a wheelchair from someone. She stated that her new home is handicap accessible. [facility] served and explained. I will send the referral to [facility]. I spoke with Kavin at [facility], Patient denied known discharge needs at this time. CM will continue to follow and will assist as needed with dc plans/needs. Production Assembly Operator: Filomena Newman DCPIA - Discharge Planning Initial Assessment Updated by [id number]: Filomena Newman on 11/24/19 12:57 pm * Is the patient Alert and Oriented? Yes * How many steps to enter\exit or inside your home? RAMP * PCP WILLIS * [facility] * Preadmission Environment Home with Family * ADLs Partial Dependent * Partial ADLs (Assistance needed) Ambulation Bathing * Equipment Bedside Commode Elevated Tol[place] Seat Rolling Walker Shower Chair Walker Wheelchair * List name and contact numbers for known caregivers / representatives who currently or will assist patient after discharge: SARKIS JOYA (SPOUSE) [phone] * Verbal permission to speak to the caregivers and representatives has been obtained from the patient. N/A * Community resources currently utilized None * Additional services required to return to the preadmission environment? Yes * Can the patient safely return to the preadmission environment? Yes * Has this patient been hospitalized within the prior 30 days at any hospital? Yes External Providers External Provider: [facility] Next Contact Date: Service Request Date: Service Type: Resolution: Reviewer: Comments: Coverage Notice Reviewer: [id number] Dominick Newman Notice Issued Date-Time: 11/24/2019 12:15 Notice Type: IM Discharge Notice Notice Delivered To: Patient Relationship to Patient: Machine Rope Maker Name: Delivery Method: HAND - Hand Delivered Loly Days: Prior Verbal Notification: Recipient Understood Notice: Yes Recipient Signature: Yes Med Rec Note Co-signed by Attending: Coverage Notice Comment: IMM SERVED AND EXPLAINED Reviewer: [id number] Newman Notice Issued Date-Time: 11/24/2019 12:15 Notice Type: Patient Choice Letter Notice Delivered To: Patient Relationship to Patient: Machine Rope Maker Name: Delivery Method: HAND - Hand Delivered Loly Days: Prior Verbal Notification: Recipient Understood Notice: Yes Recipient Signature: Yes Med Rec Note Co-signed by Attending: Coverage Notice Comment: [facility] Last DP export: 11/24/19 12:04 p Patient Name: IKER JOYA Page [phone] at 1314 All edits/amendments must be made on the electronic document DICTATION DATE: 11/24/19 1313 MICROSOFT ARCHITECT: AFTAB 11/24/19 1313 RPT#: [id number] DC DATE: STATUS: ADM IN [facility] [address] [place] [address] END OF REPORT
[2019-11-24 16:04] VITALS: BP 105/66
--- NOTE | 2019-11-24 19:36 | NUR ---
ASSUMED CARE OF PATIENT AT 1900, PATIENT RESTING QUIETLY WATCHING TV, IV INFUSING WITHOUT COMPLICATIONS, IMMOBILIZER IN PLACE ON RIGHT LEG, DENIES NEEDS AT THIS TIME, WILL CONTINUE TO MONITOR PATIENT, CALL LIGHT WITHIN REACH
[2019-11-24 20:00] VITALS: BP 117/76
[2019-11-25] VITALS: BP 109/68
[2019-11-25 04:00] VITALS: BP 106/57
[2019-11-25] MEDS ORDERED: PERCOCET 10-321 EAC1 PO (08:18)
[2019-11-25 08:36] VITALS: BP 130/73
--- NOTE | 2019-11-25 10:06 | NUR ---
DC PT IV WITH CATHETER INTACT, PT STATED SHE IS OUT OF ONE OF HER MEDICATIONS AND NEEDS A REFILL CALLED [facility]. WENT OVER DC PAPERWORK AND FOLLOW UP APPOINTMENT WITH PATIENT. ALL QUESTIONS ANSWERED
--- NOTE | 2019-11-25 10:45 | MORECARE ---
CASE MANAGEMENT DISCHARGE SUMMARY PATIENT: IKER JOYA UNIT: [id number] ADM DATE: 11/20/19 AGE: 69 : 52 SEX: F ROOM/BED: D.2218 AUTHOR: MARYSE,DOC PHYSICIAN: REFERRING PHYSICIAN: JORDAN BRISENO MD DATE OF SERVICE: 11/25/19 Discharge Plan Patient Name: IKER JOYA Facility: [facility]:[place] : 1950 Planned Disposition: Home with Home Health Anticipated Discharge Date: Discharge Date: Expected LOS: Initial Reviewer: [id number] Initial Review Date: 11/20/2019 Generated: 11/25/19 11:44 am Comments DCP- Discharge Planning Updated by [id number]: Filomena Newman on 11/25/19 9:[address] PATIENT DISCHARGING HOME WITH [facility] FOR PT SHE HAS ALL THE DME SHE NEEDS AT HOME I WILL LET [facility] KNOW OF DISCHARGE DCP- Discharge Planning Updated by [id number]: Filomena Newman on 11/24/19 12:[address] Patient Name: IKER JOYA Admission Status: Elective Accout number: [id number] Admission Date: 11-20-2019 : 1950 Admission Diagnosis:UNSP FRACTURE OF SACRUM, INIT ENCNTR FOR CLOSED FRACTUR Attending: JORDAN BRISENO Current LOS: 4 Anticipated DC Date: Planned Disposition: Home with Home Health Primary Insurance: [employer] CHOICE PPO [facility] Discharge Planning Comments: CM met with patient to complete initial dc planning assessment. CM educated patient on the CM role and verbal consent given by patient to complete assessment. Patient lives at home with her , daughter and granddaughter. At discharge patient plans to return home and feels this is a safe discharge. CM discussed availability of home health, rehab services, and medical equipment. She said she is current with [facility]. She has a walker, bsc, shower chair, ramps, she is barrowing a wheelchair from someone. She stated that her new home is handicap accessible. [facility] served and explained. I will send the referral to [facility]. I spoke with Kavin at [facility], Patient denied known discharge needs at this time. CM will continue to follow and will assist as needed with dc plans/needs. Wagon Washer: Filomena Newman DCPIA - Discharge Planning Initial Assessment Updated by [email or web address]: Filomena Newman on 11/24/19 12:57 pm * Is the patient Alert and Oriented? Yes * How many steps to enter\exit or inside your home? RAMP * PCP WILLIS * [facility] * Preadmission Environment Home with Family * ADLs Partial Dependent * Partial ADLs (Assistance needed) Ambulation Bathing * Equipment Bedside Commode Elevated Toliet Seat Rolling Walker Shower Chair Walker Wheelchair * List name and contact numbers for known caregivers / representatives who currently or will assist patient after discharge: SARKIS JOYA (SPOUSE) [phone] * Verbal permission to speak to the caregivers and representatives has been obtained from the patient. N/A * Community resources currently utilized None * Additional services required to return to the preadmission environment? Yes * Can the patient safely return to the preadmission environment? Yes * Has this patient been hospitalized within the prior 30 days at any hospital? Yes Coverage Notice Reviewer: [id number] - Filomena Newman Notice Issued Date-Time: 11/24/2019 12:15 Notice Type: IM Discharge Notice Notice Delivered To: Patient Relationship to Patient: Warehouse Material Handler Name: Delivery Method: HAND - Hand Delivered Loly Days: Prior Verbal Notification: Recipient Understood Notice: Yes Recipient Signature: Yes Med Rec Note Co-signed by Attending: Coverage Notice Comment: IMM SERVED AND EXPLAINED Reviewer: [id number] Dominick Newman Notice Issued Date-Time: 11/24/2019 12:15 Notice Type: Patient Choice Letter Notice Delivered To: Patient Relationship to Patient: Warehouse Material Handler Name: Delivery Method: HAND - Hand Delivered Loly Days: Prior Verbal Notification: Recipient Understood Notice: Yes Recipient Signature: Yes Med Rec Note Co-signed by Attending: Coverage Notice Comment: [facility] Last DP export: 11/24/19 12:14 p Patient Name: IKER JOYA Page [phone] at 1045 All edits/amendments must be made on the electronic document DICTATION DATE: 11/25/19 1044 MEDICAL RECORD TRANSCRIBER: AFTAB 11/25/19 1044 RPT#: [id number] DC DATE: STATUS: ADM IN [facility] [address] [place] [address] END OF REPORT
--- NOTE | 2019-11-27 17:12 | MORECARE ---
CASE MANAGEMENT DISCHARGE SUMMARY PATIENT: IKER JOYA UNIT: [id number] ADM DATE: 11/20/19 AGE: 69 : 54 SEX: F ROOM/BED: D.2218 AUTHOR: MARYSE,DOC PHYSICIAN: REFERRING PHYSICIAN: JORDAN BRISENO MD DATE OF SERVICE: 11/27/19 Discharge Plan Patient Name: IKER JOYA Facility: [facility]:[place] : 1950 Planned Disposition: Home with Home Health Anticipated Discharge Date: Discharge Date: 11/25/2019 Expected LOS: Initial Reviewer: [id number] Initial Review Date: 11/20/2019 Generated: 11/27/19 6:12 pm DCP- Discharge Planning Updated by [email or web address]: Filomena Newman on 11/25/19 9:[address] PATIENT DISCHARGING HOME WITH [facility] FOR PT SHE HAS ALL THE DME SHE NEEDS AT HOME I WILL LET [facility] KNOW OF DISCHARGE DCP- Discharge Planning Updated by [id number]: Filomena Newman on 11/24/19 12:[address] Patient Name: IKER JOYA Admission Status: Elective Accout number: [id number] Admission Date: 11-20-2019 : 1950 Admission Diagnosis:UNSP FRACTURE OF SACRUM, INIT ENCNTR FOR CLOSED FRACTUR Attending: JORDAN BRISENO Current LOS: 4 Anticipated DC Date: Planned Disposition: Home with Home Health Primary Insurance: [employer] CHOICE PPO [facility] Discharge Planning Comments: CM met with patient to complete initial dc planning assessment. CM educated patient on the CM role and verbal consent given by patient to complete assessment. Patient lives at home with her , daughter and granddaughter. At discharge patient plans to return home and feels this is a safe discharge. CM discussed availability of home health, rehab services, and medical equipment. She said she is current with [facility]. She has a walker, bsc, shower chair, ramps, she is barrowing a wheelchair from someone. She stated that her new home is handicap accessible. [facility] served and explained. I will send the referral to [facility]. I spoke with Kavin at [facility], Patient denied known discharge needs at this time. CM will continue to follow and will assist as needed with dc plans/needs. Business Education Professor: Filoemna Newman DCPIA - Discharge Planning Initial Assessment Updated by [id number]: Filomena Newman on 11/24/19 12:57 pm * Is the patient Alert and Oriented? Yes * How many steps to enter\exit or inside your home? RAMP * PCP WILLIS * [facility] * Preadmission Environment Home with Family * ADLs Partial Dependent * Partial ADLs (Assistance needed) Ambulation Bathing * Equipment Bedside Commode Elevated Toliet Seat Rolling Walker Shower Chair Walker Wheelchair * List name and contact numbers for known caregivers / representatives who currently or will assist patient after discharge: SARKIS JOYA (SPOUSE) [phone] * Verbal permission to speak to the caregivers and representatives has been obtained from the patient. N/A * Community resources currently utilized None * Additional services required to return to the preadmission environment? Yes * Can the patient safely return to the preadmission environment? Yes * Has this patient been hospitalized within the prior 30 days at any hospital? Yes Coverage Notice Reviewer: [id number] - Filomena Newman Notice Issued Date-Time: 11/24/2019 12:15 Notice Type: IM Discharge Notice Notice Delivered To: Patient Relationship to Patient: Forensic Audit Expert Name: Delivery Method: HAND - Hand Delivered Loly Days: Prior Verbal Notification: Recipient Understood Notice: Yes Recipient Signature: Yes Med Rec Note Co-signed by Attending: Coverage Notice Comment: IMM SERVED AND EXPLAINED Reviewer: [id number] Dominick Newman Notice Issued Date-Time: 11/24/2019 12:15 Notice Type: Patient Choice Letter Notice Delivered To: Patient Relationship to Patient: Forensic Audit Expert Name: Delivery Method: HAND - Hand Delivered Loly Days: Prior Verbal Notification: Recipient Understood Notice: Yes Recipient Signature: Yes Med Rec Note Co-signed by Attending: Coverage Notice Comment: [facility] Last DP export: 11/25/19 9:45 a Patient Name: IKER JOYA Page [phone] at 1712 All edits/amendments must be made on the electronic document DICTATION DATE: 11/27/191711 FORESTER SILVICULTURE: AFTAB 11/27/191711 RPT#: [id number] DC DATE:11/25/19 STATUS: DIS IN [facility] [address] [place] [address] END OF REPORT
== END 2019-11-25 10:59 | disposition home health service (06) | DRG 552 ==
LOC: D.MS 16:27
PROVIDERS: ADMIT Orthopaedic Surgery; ATTEND Orthopaedic Surgery
DX: S32.10XA Unspecified fracture of sacrum, initial encounter for closed fracture (principal); W19.XXXA Unspecified fall, initial encounter; M16.10 Unilateral primary osteoarthritis, unspecified hip; S83.521A Sprain of posterior cruciate ligament of right knee, initial encounter

== ENCOUNTER → 2019-12-30 19:33 | Outpatient (CLI) | payer MEDICARE, OTHER ==
[2019-11-21 08:41] VITALS: BMI 36.6
[2019-12-30 21:00] LABS: BASOPHILS 0.7 % (0-2); EOSINOPHILS 4.9 % (0-7); HEMATOCRIT 39.8 % (36.0-48.0); HEMOGLOBIN 12.5 g/dL (12-16); IMMATURE GRANULOCYTES 0.2 % (0-5); LYMPHOCYTES 31.1 % (15-50); MCH 25.7 pg (26.0-34.0); MCHC 31.4 g/dL (31.0-37.0); MCV 81.9 fL (80.0-100.0); MEAN PLATELET VOLUME 9.6 fL (7.4-10.4); MONOCYTES 6.8 % (2-11); NEUTROPHILS 56.3 % (40-80); PLATELET COUNT 210 10x3/uL (130-400); RBC 4.86 10x6/uL (4.00-5.40); RDW 14.9 % (11.5-14.5); WBC 5.9 10x3/uL (4.8-10.8)
[2019-12-30 22:50] LABS: ERYTHROCYTE SEDIMENTATION RATE 10 mm/hr (0-30)
== END | disposition home or self-care (01) ==
LOC: D.LABREF 19:33
PROVIDERS: ATTEND Clinical Nurse Specialist Family Health
DX: M25.562 Pain in left knee (principal)

== ENCOUNTER 2020-05-18 05:55 | Day surgery (SDC) | payer MEDICARE, OTHER ==
[~2020-05-18] VITALS: Ht 162.6 cm; Wt 91.4 kg
--- NOTE | ~2020-05-18 | OP ---
PATIENT NAME: IKER JOYA MEDICAL RECORD: [id number] :[birth year] LOCATION:[facility] ADMISSION DATE: SURGEON: ARMANDO ANDERSON MD DATE OF OPERATION: 05/18/2020 PREOPERATIVE DIAGNOSES: 1. Anal pain. 2. Left buttock mass. 3. Hypertension. POSTOPERATIVE DIAGNOSES: 1. Anal pain. 2. Left buttock mass. 3. Hypertension. PROCEDURE: 1. Anal exam under anesthesia. 2. Excision of 2.5 cm left buttock soft tissue mass. SURGEON: Armando Anderson MD REPORT OF PROCEDURE: The patient was placed in lithotomy position. The perianal region was prepped and draped in sterile fashion. An anoscope was inserted and we did a 360-degree inspection. I saw no evidence of any masses or lesions. There did not appear to be any significant hemorrhoidal tissue. I did not see any evidence of a fissure or fistula. The patient did have a tight anal sphincter with some inflammatory changes. I could not see any evidence of why this was present. The tissue itself appeared to be normal, just a little bit firm. I was able to dilate the anus up very easily. Upon doing this, there was some tearing of some of the anal tissue, but this was not deep. After dilation of the tissue, the anal exam was much easier. I was able to fill into the patient's anus and did not feel any masses or lesions in the distal rectum either. On the anterior aspect of the anus at about the 1 o'clock position, there was some firm inflammatory tissue, but a general inspection showed no evidence of any distinct masses, lesions, fissures, fistulas, or ulcerations. We dilated the anus up completely and then placed an Americaine gel within the anal region. We then flipped the patient up on her right side. The left lateral buttock was prepped and draped in sterile fashion. A transverse ovoid incision was made overlying firm area. This incision was about 3 cm in length. Through the subcutaneous fatty tissue, we encountered this very firm fatty tissue, most consistent with fat necrosis. We excised this fatty tissue down almost to the gluteal fascia. Once this firm tissue was completely excised I could feel around the wound and felt it was a normal fatty tissue that was remaining. We irrigated out the wound bed with sterile saline and then made sure there was no sign of any active bleeding. The subcutaneous tissues were reapproximated with interrupted 3-0 Vicryl and the skin was closed with running subcutaneous 5-0 Monocryl. A 10 mL of 0.25% Marcaine with epinephrine was infused into the surrounding tissues and the wounds were dressed appropriately. COMPLICATIONS: None. CONDITION: Stable. ANESTHESIA: General endotracheal and local. OPERATIVE REPORT [id number] IKER JOYA BLOOD LOSS: Minimal. TRANSINT:[id number] Voice Confirmation ID: [id number] DOCUMENT ID: [id number] ARMANDO ANDERSON MD CC: ROLF ENGEL [id number] DICTATION DATE: 05/18/20903 MANAGER WOUND: 05/18/20 1211 [facility] 05/18/20 [id number] [place] [address]
[~2020-05-18 05:55] MED LIST changes: +MS CONTIN15 MG PO; +MUPIROCIN22 GM TOPICAL
[2020-05-18 06:28] LABS: EOSINOPHILS 4.5 % (0-7); HEMOGLOBIN 11.8 g/dL (12-16); IMMATURE GRANULOCYTES 0.2 % (0-5); LYMPHOCYTE ABS# 1.74 10x3/uL (1.18-3.74); LYMPHOCYTES 29.2 % (15-50); MCH 24.2 pg (26.0-34.0); MCHC 31.1 g/dL (31.0-37.0); MEAN PLATELET VOLUME 9.1 fL (7.4-10.4); MONOCYTES 10.6 % (2-11); NEUTROPHIL ABS# 3.25 10x3/uL (1.56-6.13); NEUTROPHILS 54.5 % (40-80); PLATELET COUNT 238 10x3/uL (130-400); RBC 4.87 10x6/uL (4.00-5.40); RDW 14.3 % (11.5-14.5)
[2020-05-18 06:36] LABS: ANION GAP 12.4 mmol/L (8-16); CALCIUM 9.7 mg/dL (8.5-10.1); CARBON DIOXIDE 28.4 mmol/L (21.0-32.0); CREATININE - SERUM 1.1 mg/dL (0.6-1.3); POTASSIUM - SERUM 3.8 mmol/L (3.5-5.1)
[2020-05-18 07:10] VITALS: BP 106/67; Ht 162.6 cm; Wt 91.4 kg
[2020-05-18] MEDS ORDERED: ROXICODONE15 MG PO (08:57)
== END 2020-05-18 11:45 | disposition home or self-care (01) ==
LOC: D.OPS 05:55
PROVIDERS: ATTEND Surgery
DX: K62.89 Other specified diseases of anus and rectum (principal); R22.9 Localized swelling, mass and lump, unspecified; I10 Essential (primary) hypertension

== ENCOUNTER 2020-06-28 23:37 | Emergency (ER) | payer MEDICARE, OTHER ==
[~2020-06-28] VITALS: Ht 162.6 cm; Wt 100.0 kg
[~2020-06-28 23:37] MED LIST changes: +ROXICODONE15 MG PO
[2020-06-28 23:40] VITALS: Ht 162.6 cm; Wt 100.0 kg
[2020-06-28] MEDS ORDERED: MOBIC7.5 MG PO (23:44)
[2020-06-29] MEDS ORDERED: ZOFRAN ODT4 MG/UDTAB PO (03:36)
[2020-06-29] MEDS ORDERED: PREDNISONE20 MG PO (03:36)
[2020-06-29] MEDS ORDERED: HYDROCODON-ACE1 EA10 PO (03:36)
[2020-06-29 05:00] VITALS: BP 136/85
== END 2020-06-29 05:19 | disposition home or self-care (01) ==
LOC: D.ER 23:37
DX: M25.561 Pain in right knee (principal); M25.551 Pain in right hip; Z96.651 Presence of right artificial knee joint

== ENCOUNTER 2020-07-01 10:19 | Emergency (ER) | payer MEDICARE, OTHER ==
[~2020-07-01] VITALS: Ht 162.6 cm; Wt 100.0 kg
[~2020-07-01 10:19] MED LIST changes: +MOBIC7.5 MG PO; +PREDNISONE20 MG PO
[2020-07-01 10:21] VITALS: BP 116/93; Ht 162.6 cm; Wt 100.0 kg
== END 2020-07-01 11:12 | disposition home or self-care (01) ==
LOC: D.ER 10:19
DX: M54.5 Low back pain (principal)

== ENCOUNTER 2020-08-10 16:25 | Emergency (ER) | payer MEDICARE, OTHER ==
[~2020-08-10] VITALS: Ht 157.5 cm; Wt 102.3 kg
[2020-08-10 16:29] VITALS: Ht 157.5 cm; Wt 102.3 kg
[2020-08-10 18:15] VITALS: BP 132/78
== END 2020-08-10 18:15 | disposition home or self-care (01) ==
LOC: D.ER 16:25
DX: M54.5 Low back pain (principal); V89.2XXA Person injured in unspecified motor-vehicle accident, traffic, initial encounter; Y93.9 Activity, unspecified; Y92.9 Unspecified place or not applicable; M54.2 Cervicalgia; M79.605 Pain in left leg; M79.604 Pain in right leg